=== PATIENT | female | born 1960 | race African-American/Black ===

== ENCOUNTER 2018-08-20 15:07 | Inpatient (IN) | payer OTHER ==
[2018-08-20 18:55] VITALS: BMI 34.6
--- NOTE | 2018-08-20 20:01 | HP ---
COWS - Scale Resting Pulse: 1= [place] 81-100 Sweatin= Chills/Flushing Restless Observation: 5= Unable to Sit Still Pupil Size: 1= Pupils >than Normal Bone or Joint Aches: 2= Severe Diffuse Aches Runny Nose/ Eye Tearin= Runny Nose/Eyes GI Upset > 30mins: 1= Stomach Cramp Tremor Observation: 1= Tremor [place], Not Seen Yawning Observation: 1= 1-2x During Session Anxiety or Irritability: 4=Extreme Anxiety Goose Flesh Skin: 0=Smooth Skin COWS Score: 19 CIWA Score - Admission Criteria OASAS Guidelines: Admission for Medically Managed Detox: Requires at least one of the followin. CIWA greater than 12 2. Seizures within the past 24 hours 3. Delirium tremens within the past 24 hours 4. Hallucinations within the past 24 hours 5. Acute intervention needed for co occurring medical disorder 6. Acute intervention needed for co occurring psychiatric disorder 7. Severe withdrawal that cannot be handled at a lower level of care (continued vomiting, continued diarrhea, abnormal vital signs) requiring intravenous medication and/or fluids 8. Admission [facility] Chief Complaint: heroin detox 57 yo with HTN, COPD, CAD, long h/o heroin addiction, [place] [facility] [facility] [place], left on 07/16/18 and relapsed on 07/24/18. Pt says "people, places and things" caused her to relapse. heroin: uses 8 bags/day, sniffing, no h/o OD denies other drug use, no alcohol use Allergies/Adverse Reactions: Allergies Allergy/AdvReac Type Severity Reaction Status Date / Time No Known Allergies Allergy Verified 08/20/18 18:23 - Ebola screening Have you traveled outside of the country in the last 21 days: No Have you had contact with anyone from an Ebola affected area: No Do you have a fever: No Patient History - Patient Medical History Hx Asthma: Yes Hx Chronic Obstructive Pulmonary Disease (COPD): Yes Hx Hypertension: Yes - PPD History Previous Implant?: Yes Documented Results: Positive w/proof - Smoking Cessation Smoking history: Current every day smoker Have you smoked in the past 12 months: Yes Aproximately how many cigarettes per day: 3 Hx Chewing Tobacco Use: No Initiated information on smoking cessation: Yes 'Breaking Loose' booklet given: 08/20/18 - Substances abused Heroin Substance route: Inhalation Frequency: 3-6 times per week Amount used: 4 bags Age of first use: 18 Date of last use: 08/20/18 Admission Physical Exam BHS - Vital Signs Vital Signs: Vital Signs - 24 hr 08/20/18 18:51 Temperature 97.7 F Pulse Rate 60 Respiratory 16 Rate Blood Pressure 178/88 H - Physical General Appearance: Yes: Nourished, Anxious HEENTM: Yes: Within Normal Limits, EOMI, Hearing grossly Normal, Normal Voice, TREVOR, Pharynx Normal Respiratory: Yes: Within Normal Limits, Chest Non-Tender, Lungs Clear Neck: Yes: Within Normal Limits Cardiology: Yes: Within Normal Limits, S1, S2 Abdominal: Yes: Within Normal Limits, Normal Bowel Sounds, Non Tender, Protuberent Back: Yes: Within Normal Limits, Normal Inspection Musculoskeletal: Yes: Within Normal Limits, full range of Motion Extremities: Yes: Within Normal Limits, Normal Capillary Refill Neurological: Yes: Within Normal Limits, car top bolter II-XII NML intact, Fully Oriented, Alert Integumentary: Yes: Within Normal Limits, Normal Color, Dry Lymphatic: Yes: Within Normal Limits - Diagnostic (1) Opioid use disorder Current Visit: Yes Status: Acute (2) HTN (hypertension) Current Visit: Yes Status: Acute (3) COPD (chronic obstructive pulmonary disease) Current Visit: Yes Status: Acute Breathalyzer - Breathalyzer Breathalyzer: 0 Urine Drug Screen - Test Device Lot number: [id number] Expiration date: 03/15/20 - Control Is test valid?: Yes - Results Drug screen NEGATIVE: No Urine drug screen results: THC-Marijuana, MOP-Opiates Inpatient Rehab Admission - Rehab Decision to Admit Inpatient rehab admission?: No
[2018-08-20] MEDS ORDERED: hydrOXYzine PAMOATE 25 MG CAPSULE (FP) PO PRN (20:03)
[2018-08-20] MEDS ORDERED: MAGNESIUM HYDROX 2400MG/30ML ORAL SUSPENSION 30 ML CUP PO PRN (20:03)
[2018-08-20] MEDS ORDERED: IBUPROFEN 400 MG TABLET (FP) PO PRN (20:03)
[2018-08-20] MEDS ORDERED: BISMUTH SUBSALICYLATE 524 MG/30 ML UD PO PRN (20:03)
[2018-08-20] MEDS ORDERED: ACETAMINOPHEN 325 MG TABLET (FP) PO PRN ×2 (20:03)
[2018-08-20] MEDS ORDERED: MAGNESIUM CITRATE 300 ML BOTTLE PO PRN (20:03)
[2018-08-20] MEDS ORDERED: MENTHOL/PHENOL 1 EACH UD MM PRN (20:03)
[2018-08-20] MEDS ORDERED: METHOCARBAMOL 500 MG TABLET PO PRN (20:03)
[2018-08-20] MEDS ORDERED: MAG HYDROX/AL HYDROX/SIMETH 30 ML UNIT-DOSE CUP PO PRN (20:03)
[2018-08-20] MEDS ORDERED: cloNIDine HCL 0.1 MG TABLET PO PRN (20:04)
[2018-08-20] MEDS ORDERED: METHADONE HCL 10 MG TABLET (FOR DETOX USE ONLY) PO ONE (20:30)
[2018-08-20] MEDS: THIAMINE HCL 100 MG TABLET (FP) PO SCH (21:33)
--- NOTE | 2018-08-21 08:26 | EKG ---
Test Reason : Blood Pressure : / mmHG Vent. Rate : 057 BPM Atrial Rate : 057 BPM P-R Int : 142 ms QRS Dur : 082 ms QT Int : 440 ms P-R-T Axes : 074 060 169 degrees QTc Int : 428 ms SINUS BRADYCARDIA POSSIBLE LEFT ATRIAL ENLARGEMENT LEFT VENTRICULAR HYPERTROPHY ABNORMAL ECG NO PREVIOUS ECGS AVAILABLE Confirmed by EMILEE LAIRD, BETSY ([id number]) on 08/21/2018 8:26:10 AM Referred By: Confirmed By:BETSY HEBERT MD
[2018-08-21] MEDS ORDERED: METHADONE HCL 10 MG TABLET (FOR DETOX USE ONLY) PO ONE (10:00)
[2018-08-21] MEDS: PRENATAL VITAMINS W/ FOLIC ACID TABLET (FP) PO SCH (10:20)
[2018-08-21] MEDS ORDERED: ALBUTEROL SO4 8 GM HFA INHALER IH PRN (11:05)
--- NOTE | 2018-08-21 11:20 | PN ---
BHS COWS - Scale Resting Pulse: 0= [place] 80 or Below Sweatin= Chills/Flushing Restless Observation: 1= Difficult to Sit Still Pupil Size: 1= Pupils >than Normal Bone or Joint Aches: 2= Severe Diffuse Aches Runny Nose/ Eye Tearin= Nasal Congestion GI Upset > 30mins: 1= Stomach Cramp Tremor Observation of Outstretched Hands: 2= Slight Tremor Visible Yawning Observation: 1= 1-2x During Session Anxiety or Irritability: 1=Feels Anxious/Irritable Goose Flesh Skin: 3=Piloerection COWS Score: 14 BHS Progress Note (SOAP) Subjective: body aches long history of hypertension none adherence with antihypertensant discuss risks of opiate misuse discuss risks of bp elevation Objective: 08/21/18 11:20 Vital Signs Temperature 97.6 F 08/21/18 10:21 Pulse Rate 65 08/21/18 10:21 Respiratory Rate 18 08/21/18 10:21 Blood Pressure 144/72 08/21/18 10:21 O2 Sat by Pulse Oximetry (%) 08/21/18 11:20 lab pending Assessment: 08/21/18 11:20 opiate withdrawal sx hypertension Plan: continue detox
[2018-08-21 12:36] LABS: HEMOGLOBIN 13.7 GM/dL (10.7-15.3); MCH 30.3 pg (25.7-33.7); MCHC 32.6 g/dl (32.0-36.0); MEAN PLT VOLUME 8.4 fl (7.5-11.1); PLATELET COUNT 289 K/MM3 (134-434); RBC 4.52 M/mm3 (3.60-5.2); RDW 14.2 % (11.6-15.6); WHITE BLOOD COUNT 5.4 K/mm3 (4.0-10.0)
[2018-08-21 12:48] LABS: ALBUMIN 3.5 g/dl (3.4-5.0); ALK PHOS 61 U/L (45-117); ANION GAP 2 MMOL/L (8-16); BILIRUBIN,TOTAL 0.3 mg/dL (0.2-1); BLOOD UREA NITROGEN 16 mg/dL (7-18); CALCIUM 9.6 mg/dL (8.5-10.1); CHLORIDE 103 mmol/L (98-107); CO2 33 mmol/L (21-32); CREATININE 0.8 mg/dL (0.55-1.3); GLUCOSE,RANDOM 108 mg/dL (74-106); POTASSIUM 4.5 mmol/L (3.5-5.1); SGOT/AST 18 U/L (15-37); SGPT/ALT 22 U/L (13-61); SODIUM 138 mmol/L (136-145); TOT PROT 6.3 g/dl (6.4-8.2)
[2018-08-21] MEDS: ASPIRIN 81 MG CHEWABLE TABLETS PO SCH (13:15)
[2018-08-21] MEDS: amLODIPine BESYLATE 10 MG TABLET (FP) PO SCH (13:15)
[2018-08-21] MEDS: LISINOPRIL 20 MG TABLET (FP) PO SCH (13:15)
[2018-08-21] MEDS: CARVEDILOL 12.5 MG TABLET (FP) PO SCH ×2 (14:06→22:22)
[2018-08-21 15:53] LABS: URINE APPEARANCE CLEAR; URINE BILIRUBIN 1+ (NEGATIVE); URINE COLOR DK YELLOW; URINE GLUCOSE (UA) NEGATIVE (NEGATIVE); URINE KETONE TRACE (NEGATIVE); URINE LEUK ESTERASE TRACE (NEGATIVE); URINE NITRITE NEGATIVE (NEGATIVE); URINE PROTEIN NEGATIVE (NEGATIVE)
[2018-08-21 18:18] LABS: EPI CELLS 1.7 /HPF (0-5/HPF); URINE RBC 6.7 /hpf (0-4); URINE WBC 3.4 /hpf (0-5)
[2018-08-21 18:19] LABS: URINE BACTERIA 17.9 /hpf (NEGATIVE)
[2018-08-21 18:20] LABS: URINE CASTS 16.18 /lpf (0-8); URINE CRYSTALS CALCIUM OXALATE /hpf
[2018-08-21] MEDS: MELATONIN 5 MG TABLETS PO PRN (22:22)
[2018-08-21] MEDS: THIAMINE HCL 100 MG TABLET (FP) PO SCH (22:22)
[2018-08-22] MEDS ORDERED: METHADONE HCL 10 MG TABLET (FOR DETOX USE ONLY) PO ONE (10:00)
[2018-08-22] MEDS: PRENATAL VITAMINS W/ FOLIC ACID TABLET (FP) PO SCH (10:34)
[2018-08-22] MEDS: LISINOPRIL 20 MG TABLET (FP) PO SCH (10:34)
[2018-08-22] MEDS: CARVEDILOL 12.5 MG TABLET (FP) PO SCH ×2 (10:34→22:17)
[2018-08-22] MEDS: ASPIRIN 81 MG CHEWABLE TABLETS PO SCH (10:34)
[2018-08-22] MEDS: amLODIPine BESYLATE 10 MG TABLET (FP) PO SCH (10:34)
--- NOTE | 2018-08-22 11:37 | PN ---
BHS COWS - Scale Resting Pulse: 0= [place] 80 or Below Sweatin= Chills/Flushing Restless Observation: 1= Difficult to Sit Still Pupil Size: 1= Pupils >than Normal Bone or Joint Aches: 1= Mild Discomfort Runny Nose/ Eye Tearin= Nasal Congestion GI Upset > 30mins: 1= Stomach Cramp Tremor Observation of Outstretched Hands: 1= Tremor [place], Not Seen Yawning Observation: 1= 1-2x During Session Anxiety or Irritability: 2=Irritable/Anxious Goose Flesh Skin: 0=Smooth Skin COWS Score: 10 BHS Progress Note (SOAP) Subjective: low energy resting on bed trouble sleep through the night Objective: 08/22/18 11:37 Vital Signs Temperature 97.4 F L 08/22/18 09:47 Pulse Rate 56 L 08/22/18 09:47 Respiratory Rate 18 08/22/18 09:47 Blood Pressure 139/82 08/22/18 09:47 O2 Sat by Pulse Oximetry (%) Laboratory Last Values WBC 5.4 K/mm3 (4.0-10.0) 08/21/18 09:30 RBC 4.52 M/mm3 (3.60-5.2) 08/21/18 09:30 Hgb 13.7 GM/dL (10.7-15.3) 08/21/18 09:30 Hct 42.0 % (32.4-45.2) 08/21/18 09:30 MCV 93.0 fl (80-96) 08/21/18 09:30 MCH 30.3 pg (25.7-33.7) 08/21/18 09:30 MCHC 32.6 g/dl (32.0-36.0) 08/21/18 09:30 RDW 14.2 % (11.6-15.6) 08/21/18 09:30 Plt Count 289 K/MM3 (134-434) 08/21/18 09:30 MPV 8.4 fl (7.5-11.1) 08/21/18 09:30 Sodium 138 mmol/L (136-145) 08/21/18 09:30 Potassium 4.5 mmol/L (3.5-5.1) 08/21/18 09:30 Chloride 103 mmol/L (98-107) 05/08/19 09:30 Carbon Dioxide 33 mmol/L (21-32) H 08/21/18 09:30 Anion Gap 2 MMOL/L (8-16) L 08/21/18 09:30 BUN 16 mg/dL (7-18) 08/21/18 09:30 Creatinine 0.8 mg/dL (0.55-1.3) 08/21/18 09:30 Creat Clearance w eGFR 73.42 (>60) 08/21/18 09:30 Random Glucose 108 mg/dL (74-106) H 08/21/18 09:30 Calcium 9.6 mg/dL (8.5-10.1) 08/21/18 09:30 Total Bilirubin 0.3 mg/dL (0.2-1) 08/21/18 09:30 AST 18 U/L (15-37) 08/21/18 09:30 ALT 22 U/L (13-61) 08/21/18 09:30 Alkaline Phosphatase 61 U/L (45-117) 08/21/18 09:30 Total Protein 6.3 g/dl (6.4-8.2) L 08/21/18 09:30 Albumin 3.5 g/dl (3.4-5.0) 08/21/18 09:30 Urine Color Dk yellow 08/21/18 11:45 Urine Appearance Clear 08/21/18 11:45 Urine pH 5.0 (5.0-8.0) 08/21/18 11:45 Ur Specific [place] 1.033 (1.010-1.035) 08/21/18 11:45 Urine Protein Negative (NEGATIVE) 08/21/18 11:45 Urine Glucose (UA) Negative (NEGATIVE) 08/21/18 11:45 Urine Ketones Trace (NEGATIVE) H 08/21/18 11:45 Urine Blood Negative (NEGATIVE) 08/21/18 11:45 Urine Nitrite Negative (NEGATIVE) 08/21/18 11:45 Urine Bilirubin 1+ (NEGATIVE) H 08/21/18 11:45 Urine Urobilinogen 1.0 mg/dL (0.2-1.0) 08/21/18 11:45 Ur Leukocyte Esterase Trace (NEGATIVE) 08/21/18 11:45 Urine WBC (Auto) 3.4 /hpf (0-5) 08/21/18 11:45 Urine RBC (Auto) 6.7 /hpf (0-4) 08/21/18 11:45 Urine Casts (Auto) 16.18 /lpf (0-8) 08/21/18 11:45 U Epithel Cells (Auto) 1.7 /HPF (0-5/HPF) 08/21/18 11:45 Urine Crystals (Auto) Calcium oxalate /hpf 08/21/18 11:45 Urine Bacteria (Auto) 17.9 /hpf (NEGATIVE) 08/21/18 11:45 POC Urine HCG, Qual Negative 08/20/18 19:18 RPR Titer Nonreactive (NONREACTIVE) 08/21/18 09:30 lab noted Assessment: 08/22/18 11:37 withdrawal sx Plan: continue detox
[2018-08-22] MEDS ORDERED: diphenhydrAMINE HCL 25 MG CAPSULE (FP) PO ONE (20:12)
[2018-08-22] MEDS ORDERED: COLLOIDAL OATMEAL 1 BAR EACH TP PRN (20:12)
--- NOTE | 2018-08-22 20:14 | PN ---
[facility] Progress Note Note: Vital Signs Temperature 97.6 F 08/22/18 18:00 Pulse Rate 53 L 08/22/18 18:00 Respiratory Rate 08/22/18 18:00 Blood Pressure 126/66 08/22/18 18:00 O2 Sat by Pulse Oximetry (%) c/o of itchy skin after using soap. one time dose Benadryl and aveeno soap continue to monitor
[2018-08-22] MEDS: THIAMINE HCL 100 MG TABLET (FP) PO SCH (22:17)
[2018-08-23] MEDS ORDERED: METHADONE HCL 10 MG TABLET (FOR DETOX USE ONLY) PO ONE (10:00)
[2018-08-23] MEDS: amLODIPine BESYLATE 10 MG TABLET (FP) PO SCH (10:28)
[2018-08-23] MEDS: ASPIRIN 81 MG CHEWABLE TABLETS PO SCH (10:28)
[2018-08-23] MEDS: LISINOPRIL 20 MG TABLET (FP) PO SCH (10:28)
[2018-08-23] MEDS: CARVEDILOL 12.5 MG TABLET (FP) PO SCH ×2 (10:28→22:01)
[2018-08-23] MEDS: PRENATAL VITAMINS W/ FOLIC ACID TABLET (FP) PO SCH (10:28)
--- NOTE | 2018-08-23 15:51 | PN ---
BHS COWS - Scale Resting Pulse: 0= [place] 80 or Below Sweatin= No chills or Flushing Restless Observation: 1= Difficult to Sit Still Pupil Size: 0= Normal to Room Light Bone or Joint Aches: 0= None Runny Nose/ Eye Tearin= None GI Upset > 30mins: 0= None Tremor Observation of Outstretched Hands: 0= None Yawning Observation: 1= 1-2x During Session Anxiety or Irritability: 0= None Goose Flesh Skin: 0=Smooth Skin COWS Score: 2 BHS Progress Note (SOAP) Subjective: Patient denies current Withdrawal / Detox symptoms and reports that he feels well overall. Objective: PATIENT A & O X 3, OBSERVED AMBULATING ON UNIT UNASSISTED. IN NO ACUTE DISTRESS. 08/23/18 15:47 Vital Signs Temperature 97.0 F L 08/23/18 14:06 Pulse Rate 55 L 08/23/18 14:06 Respiratory Rate 20 08/23/18 14:06 Blood Pressure 128/79 08/23/18 14:06 O2 Sat by Pulse Oximetry (%) Laboratory Tests 08/20/18 08/21/18 08/21/18 19:18 09:30 09:30 WBC 5.4 RBC 4.52 Hgb 13.7 Hct 42.0 MCV 93.0 MCH 30.3 MCHC 32.6 RDW 14.2 Plt Count 289 MPV 8.4 Sodium 138 Potassium 4.5 Chloride 103 Carbon Dioxide 33 H Anion Gap 2 L BUN 16 Creatinine 0.8 Creat Clearance w eGFR 73.42 Random Glucose 108 H Calcium 9.6 Total Bilirubin 0.3 AST 18 ALT 22 Alkaline Phosphatase 61 Total Protein 6.3 L Albumin 3.5 Urine Color Urine Appearance Urine pH Ur Specific [place] Urine Protein Urine Glucose (UA) Urine Ketones Urine Blood Urine Nitrite Urine Bilirubin Urine Urobilinogen Ur Leukocyte Esterase Urine WBC (Auto) Urine RBC (Auto) Urine Casts (Auto) U Epithel Cells (Auto) Urine Crystals (Auto) Urine Bacteria (Auto) POC Urine HCG, Qual Negative RPR Titer 08/21/18 08/21/18 09:30 11:45 WBC RBC Hgb Hct MCV MCH MCHC RDW Plt Count MPV Sodium Potassium Chloride Carbon Dioxide Anion Gap BUN Creatinine Creat Clearance w eGFR Random Glucose Calcium Total Bilirubin AST ALT Alkaline Phosphatase Total Protein Albumin Urine Color Dk yellow Urine Appearance Clear Urine pH 5.0 Ur Specific [place] 1.033 Urine Protein Negative Urine Glucose (UA) Negative Urine Ketones Trace H Urine Blood Negative Urine Nitrite Negative Urine Bilirubin 1+ H Urine Urobilinogen 1.0 Ur Leukocyte Esterase Trace Urine WBC (Auto) 3.4 Urine RBC (Auto) 6.7 Urine Casts (Auto) 16.18 U Epithel Cells (Auto) 1.7 Urine Crystals (Auto) Calcium oxalate Urine Bacteria (Auto) 17.9 POC Urine HCG, Qual RPR Titer Nonreactive LABS NOTED. Assessment: 08/23/18 15:48 WITHDRAWAL SYMPTOMS. Plan: CONTINUE DETOX. PATIENT SCHEDULED FOR D/C TOMORROW.
[2018-08-23] MEDS: THIAMINE HCL 100 MG TABLET (FP) PO SCH (22:01)
[2018-08-23] MEDS: MELATONIN 5 MG TABLETS PO PRN (22:02)
[2018-08-24] MEDS ORDERED: METHADONE HCL 5 MG TABLET (FOR DETOX USE ONLY) PO ONE (06:00)
[2018-08-24 06:15] VITALS: BP 122/67; PULSE 54; TEMP 96.6
--- NOTE | 2018-08-24 18:54 | DS ---
[facility] Detox Discharge Summary Admission Date: 08/20/18 Discharge Date: 08/24/18 - History Present History: Opioid Dependence Additional Comments: PATIENT GOING TO [facility] ([place], [place]) FOR AFTERCARE. PATIENT WAS DISCHARGED FROM DETOX UNIT NI STABLE MEDICAL CONDITION. Pertinent Past History: CAD, HYPERTENSION, C.O.P.D. - Physical Exam Results Vital Signs: Vital Signs Temperature 96.6 F L 08/24/18 06:15 Pulse Rate 54 L 08/24/18 06:15 Respiratory Rate 18 08/24/18 06:15 Blood Pressure 122/67 08/24/18 06:15 O2 Sat by Pulse Oximetry (%) Pertinent Admission Physical Exam Findings: WITHDRAWAL SYMPTOMS. Laboratory Tests 08/20/18 08/21/18 08/21/18 19:18 09:30 09:30 WBC 5.4 RBC 4.52 Hgb 13.7 Hct 42.0 MCV 93.0 MCH 30.3 MCHC 32.6 RDW 14.2 Plt Count 289 MPV 8.4 Sodium 138 Potassium 4.5 Chloride 103 Carbon Dioxide 33 H Anion Gap 2 L BUN 16 Creatinine 0.8 Creat Clearance w eGFR 73.42 Random Glucose 108 H Calcium 9.6 Total Bilirubin 0.3 AST 18 ALT 22 Alkaline Phosphatase 61 Total Protein 6.3 L Albumin 3.5 Urine Color Urine Appearance Urine pH Ur Specific [place] Urine Protein Urine Glucose (UA) Urine Ketones Urine Blood Urine Nitrite Urine Bilirubin Urine Urobilinogen Ur Leukocyte Esterase Urine WBC (Auto) Urine RBC (Auto) Urine Casts (Auto) U Epithel Cells (Auto) Urine Crystals (Auto) Urine Bacteria (Auto) POC Urine HCG, Qual Negative RPR Titer 08/21/18 08/21/18 09:30 11:45 WBC RBC Hgb Hct MCV MCH MCHC RDW Plt Count MPV Sodium Potassium Chloride Carbon Dioxide Anion Gap BUN Creatinine Creat Clearance w eGFR Random Glucose Calcium Total Bilirubin AST ALT Alkaline Phosphatase Total Protein Albumin Urine Color Dk yellow Urine Appearance Clear Urine pH 5.0 Ur Specific [place] 1.033 Urine Protein Negative Urine Glucose (UA) Negative Urine Ketones Trace H Urine Blood Negative Urine Nitrite Negative Urine Bilirubin 1+ H Urine Urobilinogen 1.0 Ur Leukocyte Esterase Trace Urine WBC (Auto) 3.4 Urine RBC (Auto) 6.7 Urine Casts (Auto) 16.18 U Epithel Cells (Auto) 1.7 Urine Crystals (Auto) Calcium oxalate Urine Bacteria (Auto) 17.9 POC Urine HCG, Qual RPR Titer Nonreactive LABS NOTED. - Treatment Hospital Course: Detox Protocol Followed, Detoxed Safely, Responded well, Discharged Condition Good, Rehab Referral Accepted Patient has Accepted a Rehab Referral to: [facility] ([place], [place]). - Medication Discharge Medications: Ambulatory Orders Advair 250-50 Diskus 50 - 250 inh IH BID 08/20/18 Aspirin 81 mg PO DAILY 08/20/18 Bupropion HCl [Bupropion HCl Sr] 100 mg PO BID 08/20/18 Gabapentin [Neurontin -] 300 mg PO BID 08/20/18 Albuterol Sulfate Inhaler - [Ventolin HFA Inhaler -] 1 - 2 inh IH Q4H #1 inhaler 08/23/18 Amlodipine Besylate 10 mg PO DAILY #30 tablet 08/23/18 Aspirin 81 mg PO DAILY 30 Days #30 tab.chew 08/23/18 Carvedilol 12.5 mg PO BID 30 Days #60 tablet 08/23/18 Fluticasone/Salmeterol [Advair 250-50 Diskus] 1 each IH DAILY #1 blst.w.dev 02/01 Lisinopril [Prinivil -] 40 mg PO DAILY 30 Days #30 tablet 08/23/18 - Diagnosis (1) COPD (chronic obstructive pulmonary disease) Status: Acute Qualifiers: COPD type: unspecified COPD Qualified Code(s): J44.9 - Chronic obstructive pulmonary disease, unspecified (2) HTN (hypertension) Status: Acute Qualifiers: Hypertension type: unspecified Qualified Code(s): I10 - Essential (primary ) hypertension (3) Opioid use disorder Status: Acute - AMA Did Patient Leave Against Medical Advice: No
== END 2018-08-24 10:29 | disposition home or self-care (01) | DRG 773 ==
LOC: YASAS 15:07 → Y3N 20:21
PROVIDERS: ADMIT Surgery; ATTEND Surgery
PROC: HZ2ZZZZ Detoxification Services for Substance Abuse Treatment (ICD-10-PCS; principal; 2018-08-20)
DX: F11.23 Opioid dependence with withdrawal (principal); F17.210 Nicotine dependence, cigarettes, uncomplicated; I10 Essential (primary) hypertension; J44.9 Chronic obstructive pulmonary disease, unspecified; L29.9 Pruritus, unspecified; I25.10 Atherosclerotic heart disease of native coronary artery without angina pectoris
CPT/HCPCS: 36415; 80053; 81003; 81025; 85027; 86593; 93005; 93010; J0735

== ENCOUNTER 2019-06-10 11:44 | Inpatient (IN) | payer OTHER ==
--- NOTE | 2019-06-10 12:34 | BHS.RME ---
Substance Use & Tx History - Substance Use History Alcohol Substance amount: 1 pint vodka Frequency of use: Daily Substance route: Oral Date of Last Use: 06/09/19 (was seen [facility]) Opiates (Heroin) Substance amount: 2-3 bags Frequency of use: Daily Substance route: Inhalation (ex: sniffing or snorting) Date of Last Use: 06/09/19 Cocaine (Crack) Substance amount: 3 bags Frequency of use: Daily Substance route: Smoking Date of Last Use: 06/08/19 Nicotine Substance amount: 1/2 pack Frequency of use: Daily Substance route: Smoking Date of Last Use: 06/10/19 Physical/Psych/Mental Status - Behavior General Behavior: Decreased activity Eye Contact: Normal - Cooperativeness Cooperativeness: Cooperative - Thinking Thought Processes: Tight, Logical, Goal Directed - Physical Health Problems Is patient presently having any pain?: No Does patient presently have any injuries (include location): No Does patient currently have a fever: No Is patient : No COWS - Scale Resting Pulse: 0= [place] 80 or Below Sweatin= Chills/Flushing Restless Observation: 1= Difficult to Sit Still Pupil Size: 1= Pupils >than Normal Bone or Joint Aches: 1= Mild Discomfort Runny Nose/ Eye Tearin= Nasal Congestion GI Upset > 30mins: 1= Stomach Cramp Tremor Observation: 0= None Yawning Observation: 1= 1-2x During Session Anxiety or Irritability: 1=Feels Anxious/Irritable Goose Flesh Skin: 0=Smooth Skin (used yesterday and amounts are not large on daily basis) COWS Score: 8 CIWA Nausea/Vomitin Muscle Tremors: 2 Anxiety: 3 Agitation: 1-Slight > Activity Paroxysmal Sweats: 1-Minimal Palms Moist Orientation: 1-Uncertain about Date Tacttile Disturbances: 0-None Auditory Disturbances: 0-None Visual Disturbances: 0-None Headache: 0-None Present (drank earlier and may be out of her system by now. Seen in [facility] and discharged from there early this morning around 6 AM.) CIWA-Ar Total Score: 10
--- NOTE | 2019-06-10 13:46 | HP ---
COWS - Scale Resting Pulse: 0= WI 80 or Below Sweatin= Chills/Flushing Restless Observation: 1= Difficult to Sit Still Pupil Size: 1= Pupils >than Normal Bone or Joint Aches: 1= Mild Discomfort Runny Nose/ Eye Tearin= Nasal Congestion GI Upset > 30mins: 1= Stomach Cramp Tremor Observation: 0= None Yawning Observation: 1= 1-2x During Session Anxiety or Irritability: 1=Feels Anxious/Irritable Goose Flesh Skin: 0=Smooth Skin (used yesterday and amounts are not large on daily basis) COWS Score: 8 CIWA Score Nausea/Vomitin (last drank 6 AM so withdrawals are still mild.) Muscle Tremors: 2 Anxiety: 3 Agitation: 1-Slight > Activity Paroxysmal Sweats: 1-Minimal Palms Moist Orientation: 1-Uncertain about Date Tacttile Disturbances: 0-None Auditory Disturbances: 0-None Visual Disturbances: 0-None Headache: 0-None Present (drank earlier and may be out of her system by now. Seen in [facility] and discharged from there early this morning around 6 AM.) CIWA-Ar Total Score: 10 - Admission Criteria OASAS Guidelines: Admission for Medically Managed Detox: Requires at least one of the followin. CIWA greater than 12 2. Seizures within the past 24 hours 3. Delirium tremens within the past 24 hours 4. Hallucinations within the past 24 hours 5. Acute intervention needed for co occurring medical disorder 6. Acute intervention needed for co occurring psychiatric disorder 7. Severe withdrawal that cannot be handled at a lower level of care (continued vomiting, continued diarrhea, abnormal vital signs) requiring intravenous medication and/or fluids 8. Admitting History and Physical - Admission Chief Complaint: "I want to stop using drugs." History of Present Illness: 58 year old female with history of opioid dependence with some withdrawals and alcohol dependence with some withdrawals who is homeless and has poor support systems. She has a history of COPD, CHF, DM, HLD, HTN but noncompliant with any medications. She was last seen in [facility] for SOB and given albuterol atrovent and prednisone this morning 06/10/19. She was also impaired and referred for detox here as there were no detox beds there. PSurg: None Psych: None Alcohol: 1 pint of vodka daily k,last used on 06/10/19 never overdose started at the age of 20 Ciggs: 1/2 ppd started smoking at age 20. Heroin: 2-3 bags of heroin daily last used 06/09/19 never overdosed started using at the age of 26 crack/cocaine: 3 bags daily last used 06/08/19 She is seeking detox and [facility] and many co-morbid disorders. She requires inpatient detox. History Source: Patient Limitations to Obtaining History: No Limitations - Past Medical History Cardiovascular: Yes: CHF, HTN, Hyperlipdemia Endocrine: Yes: Diabetes Mellitus - Past Surgical History Past Surgical History: Yes: None - Advance Directives Advance Directives: No: Living Will, Health Care Proxy, DNR - Smoking History Smoking history: Current every day smoker Have you smoked in the past 12 months: Yes Aproximately how many cigarettes per day: 3 - Alcohol/Substance Use Hx Alcohol Use: Yes ( 1 pint vodka) Number of Drinks Daily: 2 History of Substance Use: reports: Cocaine, Heroin Date of Last Use: 06/09/19 - Social History Usual Living Arrangement: Yes: Alone Do you think of yourself as: Straight/Heterosexual ADL: Independent Occupation: unemployed homeless History of Recent Travel: No Admission ROS [facility] Allergies/Adverse Reactions: Allergies Allergy/AdvReac Type Severity Reaction Status Date / Time No Known Allergies Allergy Verified 08/20/18 18:23 Exam Limitations: No Limitations - Ebola screening Have you traveled outside of the country in the last 21 days: No Have you had contact with anyone from an Ebola affected area: No Have you been sick,other than usual withdrawal symptoms: No Do you have a fever: No - Review of Systems Constitutional: No Symptoms Reported EENT: reports: No Symptoms Reported Respiratory: reports: No Symptoms reported Cardiac: reports: No Symptoms Reported GI: reports: No Symptoms Reported : reports: No Symptoms Reported Musculoskeletal: reports: No Symptoms Reported Integumentary: reports: No Symptoms Reported Neuro: reports: No Symptoms reported Endocrine: reports: No Symptoms Reported, Unexplained Weight Loss Psychiatric: reports: Judgement Intact, Orientated x3, Agitated, Anxious Other Systems: Reviewed and Negative Patient History - Patient Medical History Hx Asthma: Yes Hx Chronic Obstructive Pulmonary Disease (COPD): No Hx Cardiac Disorders: No Hx Hypertension: Yes Hx Seizures: No Hx Diabetes: No Hx Gastrointestinal Disorders: No Hx Genitourinary Disorders: No Hx Sexually Transmitted Disorders: No Hx Renal Disease (ESRD): No Hx Depression: Yes Hx Suicide Attempt: No Hx Schizophrenia: No - Patient Surgical History Past Surgical History: No Hx Neurologic Surgery: No Hx Cataract Extraction: No Hx Cardiac Surgery: No Hx Lung Surgery: No Hx Breast Surgery: No Hx Breast Biopsy: No Hx Abdominal Surgery: No Hx Appendectomy: No Hx Cholecystectomy: No Hx Genitourinary Surgery: No Hx Section: No Hx Orthopedic Surgery: No Anesthesia Reaction: No - PPD History Previous Implant?: Yes Documented Results: Negative w/o proof Implanted On Prior [facility] Admission?: No Results: negative PPD to be Administered?: Yes - Smoking Cessation Smoking history: Current every day smoker Have you smoked in the past 12 months: Yes Aproximately how many cigarettes per day: 3 Hx Chewing Tobacco Use: No Initiated information on smoking cessation: Yes 'Breaking Loose' booklet given: 06/10/19 - Substances abused Alcohol Substance route: Oral Frequency: Daily Amount used: 1 pint Age of first use: 20 Heroin Substance route: Inhalation Amount used: 2-3 Age of first use: 26 Date of last use: 06/09/19 Crack Substance route: Smoking Amount used: 3 bags Age of first use: 20 Date of last use: 06/08/19 Admission Physical Exam S - Physical General Appearance: Yes: Moderate Distress, Irritable, Sweating, Anxious HEENTM: Yes: EOMI, Hearing grossly Normal, Normal ENT Inspection, Normocephalic , Normal Voice, TREVOR, Pharynx Normal, Tm's normal Respiratory: Yes: Chest Non-Tender, Lungs Clear, Normal Breath Sounds, No Respiratory Distress, No Accessory Muscle Use Neck: Yes: No masses,lesions,Nodules, Supple, Trachea in good position Breast: Yes: Breast Exam Deferred Cardiology: Yes: Regular Rhythm, Regular Rate, S1, S2 Abdominal: Yes: Normal Bowel Sounds, Non Tender, Soft, Protuberent Genitourinary: Yes: Within Normal Limits Back: Yes: Normal Inspection Musculoskeletal: Yes: full range of Motion, Gait Steady, Pelvis Stable Extremities: Yes: Normal Capillary Refill, Normal Inspection, Normal Range of Motion, Non-Tender Neurological: Yes: cattle sticker II-XII NML intact, Fully Oriented, Alert, Motor Strength 5/5, Normal Mood/Affect, Normal Response Integumentary: Yes: Normal Color, Warm Lymphatic: Yes: Within Normal Limits - Diagnostic (1) Alcohol dependence with withdrawal Current Visit: Yes Status: Acute (2) COPD (chronic obstructive pulmonary disease) Current Visit: Yes Status: Acute Qualifiers: COPD type: unspecified COPD Qualified Code(s): J44.9 - Chronic obstructive pulmonary disease, unspecified (3) HTN (hypertension) Current Visit: Yes Status: Acute Qualifiers: Hypertension type: unspecified Qualified Code(s): I10 - Essential (primary ) hypertension (4) Opioid use disorder Current Visit: Yes Status: Acute (5) CHF (congestive heart failure) Current Visit: Yes Status: Acute (6) Hyperlipidemia Current Visit: Yes Status: Acute (7) Diabetes Current Visit: Yes Status: Acute Cleared for Admission S - Detox or Rehab [facility] Level of Care: Medically Managed Detox Regimen/Protocol: Ativan, Methadone Claeared for Rehab Admission: No Breathalyzer - Breathalyzer Breathalyzer: 0 Urine Drug Screen - Test Device Lot number: [id number] Expiration date: 03/15/21 - Control Is test valid?: Yes - Results Drug screen NEGATIVE: No Urine drug screen results: ELIUD-Cocaine, FEN-Fentanyl, MOP-Opiates, MTD-Methadone Inpatient Rehab Admission - Rehab Decision to Admit Inpatient rehab admission?: No
[2019-06-10] MEDS ORDERED: IBUPROFEN 400 MG TABLET (FP) PO PRN (13:53)
[2019-06-10] MEDS ORDERED: hydrOXYzine PAMOATE 25 MG CAPSULE (FP) PO PRN (13:53)
[2019-06-10] MEDS ORDERED: LORazepam 1 MG TABLET PO PRN (13:53)
[2019-06-10] MEDS ORDERED: BISMUTH SUBSALICYLATE 262 MG/15 ML BTL PO PRN (13:53)
[2019-06-10] MEDS ORDERED: MENTHOL/PHENOL 1 EACH UD MM PRN (13:53)
[2019-06-10] MEDS ORDERED: MAGNESIUM CITRATE 300 ML BOTTLE PO PRN (13:53)
[2019-06-10] MEDS ORDERED: MAG HYDROX/AL HYDROX/SIMETH 30 ML UNIT-DOSE CUP PO PRN (13:53)
[2019-06-10] MEDS ORDERED: ACETAMINOPHEN 325 MG TABLET (FP) PO PRN ×2 (13:53)
[2019-06-10] MEDS ORDERED: MELATONIN 5 MG TABLETS PO PRN (13:53)
[2019-06-10] MEDS ORDERED: MAGNESIUM HYDROX 2400MG/30ML ORAL SUSPENSION 30 ML CUP PO PRN (13:53)
[2019-06-10] MEDS ORDERED: METHOCARBAMOL 500 MG TABLET PO PRN (13:53)
[2019-06-10] MEDS ORDERED: cloNIDine HCL 0.1 MG TABLET PO PRN (13:53)
[2019-06-10] MEDS ORDERED: METHADONE HCL 10 MG TABLET (FOR DETOX USE ONLY) PO ONE (14:30)
[2019-06-10 14:56] VITALS: BMI 29.2
[2019-06-10] MEDS: NICOTINE 7 MG/24 HOURS TOPICAL PATCH TD SCH (15:02)
--- NOTE | 2019-06-10 15:33 | EKG ---
Test Reason : Blood Pressure : / mmHG Vent. Rate : 050 BPM Atrial Rate : 050 BPM P-R Int : 132 ms QRS Dur : 082 ms QT Int : 482 ms P-R-T Axes : -18 068 147 degrees QTc Int : 439 ms SINUS BRADYCARDIA MODERATE VOLTAGE CRITERIA FOR LVH, MAY BE NORMAL VARIANT MARKED T-WAVE ABNORMALITY, CONSIDER INFEROLATERAL ISCHEMIA ABNORMAL ECG Confirmed by Papo Bowens MD ([id number]) on 06/10/2019 3:33:03 PM Referred By: Confirmed By:Papo Bowens MD
[2019-06-10 17:27] LABS: HEMATOCRIT 44.7 % (32.4-45.2); HEMOGLOBIN 14.1 GM/dL (10.7-15.3); MCH 29.2 pg (25.7-33.7); MCHC 31.6 g/dl (32.0-36.0); MEAN CELL VOLUME 92.3 fl (80-96); MEAN PLT VOLUME 8.6 fl (7.5-11.1); PLATELET COUNT 337 K/MM3 (134-434); RBC 4.85 M/mm3 (3.60-5.2); RDW 18.9 % (11.6-15.6)
[2019-06-10 17:48] LABS: BILIRUBIN,TOTAL 1.5 mg/dL (0.2-1); BLOOD UREA NITROGEN 22.7 mg/dL (7-18); CREATININE 0.9 mg/dL (0.55-1.3); POTASSIUM 4.6 mmol/L (3.5-5.1); TOT PROT 5.9 g/dl (6.4-8.2)
[2019-06-10] MEDS: LORazepam 2 MG TABLET PO SCH ×2 (19:32→22:26)
[2019-06-10] MEDS ORDERED: THIAMINE HCL 100 MG TABLET (FP) PO SCH (22:00)
--- NOTE | 2019-06-11 04:14 | PN ---
[facility] Progress Note Note: Patient reports that she hit her right eye on the bedside table. She denies pain or discomfort at this time. No redness, swelling, bleeding, bruises, skin tear or any injury noted or reported at this time. Vital signs stable. Vital Signs Temperature 98.1 F 06/10/19 17:19 Pulse Rate 56 L 06/10/19 17:19 Respiratory Rate 18 06/11/19 00:36 Blood Pressure 133/60 06/10/19 17:19 O2 Sat by Pulse Oximetry (%) Laboratory Last Values WBC 6.0 K/mm3 (4.0-10.0) 06/10/19 14:05 RBC 4.85 M/mm3 (3.60-5.2) 06/10/19 14:05 Hgb 14.1 GM/dL (10.7-15.3) 06/10/19 14:05 Hct 44.7 % (32.4-45.2) 06/10/19 14:05 MCV 92.3 fl (80-96) 06/10/19 14:05 MCH 29.2 pg (25.7-33.7) 06/10/19 14:05 MCHC 31.6 g/dl (32.0-36.0) L 06/10/19 14:05 RDW 18.9 % (11.6-15.6) H 06/10/19 14:05 Plt Count 337 K/MM3 (134-434) 06/10/19 14:05 MPV 8.6 fl (7.5-11.1) 06/10/19 14:05 Sodium 143 mmol/L (136-145) 06/10/19 14:05 Potassium 4.6 mmol/L (3.5-5.1) 06/10/19 14:05 Chloride 108 mmol/L (98-107) H 06/10/19 14:05 Carbon Dioxide 33 mmol/L (21-32) H 06/10/19 14:05 Anion Gap 3 MMOL/L (8-16) L 06/10/19 14:05 BUN 22.7 mg/dL (7-18) H 06/10/19 14:05 Creatinine 0.9 mg/dL (0.55-1.3) 06/10/19 14:05 Est GFR (CKD-EPI)AfAm 80.55 06/10/19 14:05 Est GFR (CKD-EPI)NonAf 69.50 06/10/19 14:05 POC Glucometer 139 UNITS (80-120) 06/10/19 16:33 Random Glucose 104 mg/dL (74-106) 06/10/19 14:05 Calcium 9.0 mg/dL (8.5-10.1) 06/10/19 14:05 Total Bilirubin 1.5 mg/dL (0.2-1) H 06/10/19 14:05 AST 107 U/L (15-37) H 06/10/19 14:05 ALT 82 U/L (13-61) H 06/10/19 14:05 Alkaline Phosphatase 124 U/L (45-117) H 06/10/19 14:05 Total Protein 5.9 g/dl (6.4-8.2) L 06/10/19 14:05 Albumin 3.0 g/dl (3.4-5.0) L 06/10/19 14:05 Action: Tylenol 650mg tablet oral Q6H prn Monitor patient
[2019-06-11] MEDS: LORazepam 2 MG TABLET PO SCH ×2 (06:28→11:10)
[2019-06-11] MEDS ORDERED: METHADONE HCL 5 MG TABLET (FOR DETOX USE ONLY) ONE (08:57)
[2019-06-11] MEDS ORDERED: METHADONE HCL 10 MG TABLET (FOR DETOX USE ONLY) ONE (08:58)
[2019-06-11] MEDS ORDERED: METHADONE (DETOX) 20 MG, METHADONE (DETOX) 5 MG PO ONE (10:00)
[2019-06-11] MEDS ORDERED: PRENATAL VITAMINS W/ FOLIC ACID TABLET (FP) PO SCH (10:00)
[2019-06-11] MEDS ORDERED: NALOXONE (NARCAN) HCL 4 MG/0.1 ML SPRAY NS ONE (10:54)
[2019-06-11] MEDS: NICOTINE 7 MG/24 HOURS TOPICAL PATCH TD SCH (11:10)
[2019-06-11] MEDS ORDERED: METHADONE HCL 10 MG TABLET (FOR DETOX USE ONLY) PO ONE (11:35)
[2019-06-11] MEDS ORDERED: TRIMETHOBENZAMIDE HCL 200MG/2ML INJ IM ONE (11:57)
--- NOTE | 2019-06-11 13:14 | PN ---
Progress Note (short form) - Note Progress Note: 58 y/o f pt admitted to [facility] for heroin, alcohol detox on 06/10/19 . The pt had been seen earlier in the day for SOB/COPD at [facility]. Pt was found to be very sedated today. Her dose of methadone for 06/11/19 was held . She was then given nasal narcan and become alert and responsive. Shorly after she began to go into withdrawal. The pt was then give Tigan im followed by methadone 10mg . Pt withdrawal sx's improved ,but she is now SOB . Pulse ox 89% on RA, Resp., 22/m Pt given Duoneb treatment with some improvement SOB/COPD needs further evaluation and tx at ED pt signed out to Dr. Luz in ED [facility] activated
[2019-06-11] MEDS ORDERED: ALBUTEROL SO4 2.5/IPRATROPIUM 0.5 INH SOL 3 ML VIAL.NEB. NEB ONE (13:15)
[2019-06-11 13:27] VITALS: BP 150/99; PULSE 102; TEMP 98.1
[2019-06-12] MEDS ORDERED: LORazepam 1 MG TABLET PO SCH (05:00)
[2019-06-12] MEDS ORDERED: METHADONE HCL 10 MG TABLET (FOR DETOX USE ONLY) PO ONE (10:00)
[2019-06-13] MEDS ORDERED: LORazepam 0.5 MG TABLET PO PRN
[2019-06-13] MEDS ORDERED: LORazepam 0.5 MG TABLET PO SCH (05:00)
[2019-06-13] MEDS ORDERED: METHADONE (DETOX) 10 MG, METHADONE (DETOX) 5 MG PO ONE (10:00)
[2019-06-14] MEDS ORDERED: LORazepam 0.5 MG TABLET PO ONE (05:00)
[2019-06-14] MEDS ORDERED: METHADONE HCL 10 MG TABLET (FOR DETOX USE ONLY) PO ONE (10:00)
[2019-06-15] MEDS ORDERED: METHADONE HCL 5 MG TABLET (FOR DETOX USE ONLY) PO ONE (06:00)
== END 2019-06-11 13:56 | disposition short-term general hospital (02) | DRG 773 ==
LOC: YASAS 11:44 → Y6N 14:24
PROVIDERS: ADMIT Allergy & Immunology; ATTEND Allergy & Immunology
PROC: HZ2ZZZZ Detoxification Services for Substance Abuse Treatment (ICD-10-PCS; principal; 2019-06-10)
DX: F10.230 Alcohol dependence with withdrawal, uncomplicated (principal); F11.23 Opioid dependence with withdrawal; F14.20 Cocaine dependence, uncomplicated; F17.210 Nicotine dependence, cigarettes, uncomplicated; I11.0 Hypertensive heart disease with heart failure; I50.9 Heart failure, unspecified; E78.5 Hyperlipidemia, unspecified; E11.9 Type 2 diabetes mellitus without complications; J44.9 Chronic obstructive pulmonary disease, unspecified; R06.02 Shortness of breath; Z91.14 Patient's other noncompliance with medication regimen
CPT/HCPCS: 36415; 80053; 81025; 82962; 85027; 86593; 93005; 93010; 94640

== ENCOUNTER 2019-06-11 14:07 | Inpatient (IN) | payer OTHER ==
[2019-06-11] MEDS ORDERED: ACETAMINOPHEN INJECTION 100 ML IVPB ONE (14:58)
--- NOTE | 2019-06-11 15:09 | PDOC ---
History of Present Illness - General Chief Complaint: Altered Mental Status Stated Complaint: OVERDOSE Time Seen by Provider: 06/11/19 14:19 History Source: Patient Exam Limitations: Clinical Condition - History of Present Illness Initial Comments: History is limited because patient is lethargic and stuporous. She responds to sternal rub and most noxious stimuli but does not respond to speech. Carla Cox is a 58 yo F w a pmh of COPD, CHF,NIDDM, HLD, HTN but noncompliant with any medications, polysubstance abuse including including alcohol abuse and withdrawal with delirium tremens, seizures, and hallucinations , Opiod overdose and withdrawal taking methadone and also took heroin this morning who presents from [facility] confused and altered. The patient received naloxone this morning at [facility]. When she arrived in the ER she was satting at 72% with a good wave form. Her SpO2 saturation went up to 92% on 5LNC. She also felt warm to touch and had a rectal temperature of 101. When she was placed on the monitor her blood pressure was noted to be elevated at 198/100. She was also breathing very fast at a rate of 32. Her fingerstick was noted to be 126 upon ED entrance. Unknown when patient's last alcoholic drink was. Social Hx: Patient is homeless and has poor support systems. Past History - Past Medical History Allergies/Adverse Reactions: Allergies Allergy/AdvReac Type Severity Reaction Status Date / Time No Known Allergies Allergy Verified 08/20/18 18:23 Home Medications: Ambulatory Orders Fluticasone/Salmeterol [Advair 250-50 Diskus] 1 each IH DAILY #1 blst.w.dev 02/01 Atorvastatin Calcium 40 mg PO HS 06/10/19 Carvedilol [Coreg -] 6.25 mg PO BID 06/10/19 Fluticasone/Salmeterol [Advair Hfa 230-21 Mcg Inhaler] 1 inh PO BID 06/10/19 Lisinopril 10 mg PO DAILY 06/10/19 Metformin HCl [Glucophage] 500 mg PO DAILY 06/10/19 Metoprolol Succinate [Toprol Xl -] 50 mg PO DAILY 06/10/19 Montelukast Na [Singulair -] 10 mg PO HS 06/10/19 Tiotropium Dierks [Spiriva] 18 mcg IH DAILY 06/10/19 predniSONE [Deltasone -] 40 mg PO DAILY 06/10/19 Amlodipine Besylate [Norvasc -] 10 mg PO DAILY 06/12/19 Ipratropium/Albuterol Sulfate [Iprat-Albut 0.5-3(2.5) mg/3 ml] 3 ml Q4H Asthma: Yes Cardiac Disorders: Yes (CHF) COPD: Yes Diabetes: Yes (NIDDM) GI Disorders: No Disorders: No HTN: Yes (on med) Kidney Stones: No Seizures: No - Surgical History Abdominal Surgery: No Appendectomy: No Cardiac Surgery: No Cholecystectomy: No Lung Surgery: No Neurologic Surgery: No Orthopedic Surgery: No - Reproductive History PID: No - Psycho Social/Smoking Cessation Hx Smoking History: Current every day smoker Have you smoked in the past 12 months: Yes Number of Cigarettes Smoked Daily: 3 Information on smoking cessation initiated: No 'Breaking Loose' booklet given: 06/10/19 Hx Alcohol Use: Yes Drug/Substance Use Hx: Yes Hx Substance Use Treatment: Yes Review of Systems - Review of Systems Able to Perform ROS?: No (altered mental status) *Physical Exam - Vital Signs Last Vital Signs Temp Pulse Resp BP Pulse Ox 98.6 F 88 28 H 196/72 H 92 L 06/11/19 14:31 06/11/19 14:31 06/11/19 14:31 06/11/19 14:31 06/11/19 14:31 - Physical Exam General Appearance: Yes: Disheveled, Moderate Distress, Obese, Other (Not well kept) HEENT: positive: EOMI, Normal Voice, Other (Pinpoint Pupils) Neck: positive: Trachea midline, Supple Respiratory/Chest: positive: Respiratory Distress, Accessory Muscle Use, Labored Respiration, Rapid RR, Decreased Breath Sounds, Crackles, Rales, Rhonchi. negative: Lungs Clear, Normal Breath Sounds, Stridor, Wheezing Cardiovascular: positive: Regular Rhythm, Regular Rate. negative: Edema, JVD, Murmur, Tachycardia Vascular Pulses: Dorsalis-Pedis (R): 2+, Doralis-Pedis (L): 2+ Gastrointestinal/Abdominal: positive: Soft, Protuberent, Distended. negative: Guarding, Rebound Rectal Exam: positive: normal rectal tone. negative: melena Musculoskeletal: positive: Normal Inspection. negative: CVA Tenderness Extremity: positive: Normal Capillary Refill, Normal Inspection, Normal Range of Motion Integumentary: positive: Normal Color, Dry, Warm. negative: Swelling, Ecchymosis Neurologic: positive: Alert, Motor Strength 5/5, Respond to painful stimul, Confused, Disoriented. negative: Fully Oriented, EOM Palsy, Facial Droop, Numbness, Sensory Deficit ED Treatment Course - LABORATORY CBC & Chemistry Diagram: 06/12/19 05:18 06/12/19 05:18 - RADIOLOGY Radiology Studies Ordered: Category Date Time Status CHEST X-RAY PORTABLE* [RAD] Stat Radiology 06/11/19 14:45 Ordered Medical Decision Making - Medical Decision Making Carla Cox is a 58 yo F w a pmh of COPD, CHF,NIDDM, HLD, HTN but noncompliant with any medications, polysubstance abuse including including alcohol abuse and withdrawal with delirium tremens, seizures, and hallucinations , Opiod overdose and withdrawal taking methadone and also took heroin this morning who presents from [facility] confused and altered. The patient received naloxone this morning at [facility]. When she arrived in the ER she was satting at 72% with a good wave form. Her SpO2 saturation went up to 92% on 5LNC. She also felt warm to touch and had a rectal temperature of 101. When she was placed on the monitor her blood pressure was noted to be elevated at 198/100. She was also breathing very fast at a rate of 32. Her fingerstick was noted to be 126 upon ED entrance. Unknown when patient's last alcoholic drink was. Vital Signs Temp Pulse Resp BP Pulse Ox 98.6 F 88 28 H 196/72 H 92 L 06/11/19 14:31 06/11/19 14:31 06/11/19 14:31 06/11/19 14:31 06/11/19 14:31 DDx IBNLT: Heroin overdose vs withdrawal, alcoholic withdrawal, Sepsis - likely souce PNA, COPD exacerbation vs Heart failure, ACS, electrolyte/metabolic disturbance, acidosis - less likely DKA bc normal FS Bedside US: Cardiac:Grossly normal cardiac exam with good ejection fraction and no pericardial effusion IVC: Flat and collapsible - patient can likely tolerate IV hydration Lungs: Diffuse B-lines in all lung isidro suggestive of pulmonary edema. No pleural effusions identified. MDM: Patient is septic probably from PNA, at risk for alcohol withdrawal and DT , OD'ed on heroin and methadone. The patient has diffuse B-lines in all lung isidro with a normal EF suggestive of non-cardiac pulmonary edema. Speaking with patient's nurse at [facility] [phone]: She got nebulizer, 2mg of naloxone at 10:54, and methadone 10mg at 11:35 am. Given concern for large methadone dosage we are monitoring the patient's QTc on the Suazo monitor EKG #1 - Qtc 433 - Phillios monitor is now reading Qtc in high 500's EKG #2 - Qtc - 577 - Qtc on monitor has now gone above 630 but the patient is mentating well and responds to noxious stimuli - Zoll brought to bedside, defibrillation pads placed on patient - Airway equipment brought to bedside - 2G IV Mag given to patient - Her BP has been persistently elevated - despite multiple sublingual nitro's and nitro past her BP is still elevated, starting nitro drip and giving her her home dose of carvedilol and lisinopril Patient will be admitted to the hospital for further disposition - Tele/ICU consult and likely admission Discharge - Discharge Information Problems reviewed: Yes Clinical Impression/Diagnosis: Opioid use disorder HTN (hypertension) Qualifiers: Hypertension type: unspecified Qualified Code(s): I10 - Essential (primary) hypertension CHF (congestive heart failure) Qualifiers: Heart failure type: unspecified Heart failure chronicity: unspecified Qualified Code(s): I50.9 - Heart failure, unspecified COPD (chronic obstructive pulmonary disease) Qualifiers: COPD type: unspecified COPD Qualified Code(s): J44.9 - Chronic obstructive pulmonary disease, unspecified Alcohol dependence with withdrawal Qualifiers: Complication of substance-induced condition: with delirium Qualified Code(s): F10.231 - Alcohol dependence with withdrawal delirium Condition: Guarded - Admission Yes - Follow up/Referral - Patient Discharge Instructions - Post Discharge Activity
[2019-06-11] MEDS: SODIUM CHLORIDE 0.9% 500 ML INFUS.BAG IV ONE ×2 (15:18→15:50)
[2019-06-11] MEDS ORDERED: ACETAMINOPHEN 1000 MG/100 ML VIAL (NON FORMULARY) IVPB ONE (15:27)
[2019-06-11] MEDS ORDERED: NITROGLYCERIN SUBLINGUAL 1/150 0.4 MG TAB SL ONE ×3 (15:30→16:38)
[2019-06-11] MEDS ORDERED: FUROSEMIDE 40 MG/4 ML INJECTABLE VIAL IVPUSH ONE (15:30)
[2019-06-11] MEDS ORDERED: NITROGLYCERIN 2% OINTMENT - 1GM PACKET TD ONE ×2 (15:33→15:36)
[2019-06-11] MEDS ORDERED: FUROSEMIDE 40 MG/4 ML INJECTABLE VIAL ONE (15:36)
[2019-06-11] MEDS ORDERED: NITROGLYCERIN SUBLINGUAL 1/150 0.4 MG TAB ONE (15:36)
[2019-06-11 15:42] LABS: EOS % 0.1 % (0-4.5); HEMATOCRIT 49.8 % (32.4-45.2); HEMOGLOBIN 16.1 GM/dL (10.7-15.3); LYMPH % 8.3 % (8-40); MCH 29.3 pg (25.7-33.7); MCHC 32.2 g/dl (32.0-36.0); MEAN CELL VOLUME 90.9 fl (80-96); NEUT % 87.6 % (42.8-82.8); PLATELET COUNT 376 K/MM3 (134-434); RBC 5.48 M/mm3 (3.60-5.2); RDW 18.2 % (11.6-15.6); WHITE BLOOD COUNT 9.2 K/mm3 (4.0-10.0)
[2019-06-11 15:47] LABS: ARTERIAL BLOOD GAS BASE EXCESS 7.9 meq/l (-2-2); ARTERIAL BLOOD GAS pH 7.41 (7.35-7.45); CARBOXYHEMOGLOBIN 3.6 % (0-2)
--- NOTE | 2019-06-11 16:01 | PDOC ---
Documentation entered by Rahul Alvarado SCRIBE, acting as scribe for Christina Luz MD. Christina Luz MD: This documentation has been prepared by the Christiano wetzel Xhesika, SCRIBE, under my direction and personally reviewed by me in its entirety. I confirm that the documentation accurately reflects all work, treatment, procedures, and medical decision making performed by me. Attending Attestation - Resident Resident Name: Ayan Skelton - ED Attending Attestation I have performed the following: I have examined & evaluated the patient, The case was reviewed & discussed with the resident, I agree w/resident's findings & plan, Exceptions are as noted - HPI HPI: 06/11/19 15:23 The patient is a 58 year old female with a significant PMH of COPD, CHF, DM, HLD , HTN, alcohol/ opioid/ heroin/ crack/cocaine dependence who presents to the emergency department [facility] from [facility] for SOB and hypoxia. Per [facility], the patient was admitted at [facility] for COPD exacerbation. Pt was d/c back to [facility] for detox (heroin and cocaine) yesterday 06/10/19. While at [facility] patient became lethargic due to overdose and was treated with narcan.pt became very short of breath afterwords and hypoxic. sent to ED for evaluation Allergies: NKDA 06/11/19 15:56 - Physicial Exam PE: 06/11/19 15:58 Patient is awake alert no acute distress lungs are with bilateral crackles at the bases normal effort no accessory muscle use heart is regular tachycardia no murmurs rubs or gallops abdomen is soft nontender extremities are warm well perfused there is no noted peripheral edema neurologically the patient is awake moving all 4 extremities and speaking clearly - Medical Decision Making 06/11/19 15:59 58-year-old female history of COPD hypertension polysubstance abuse status post overdose treated with Narcan now with shortness of breath and hypoxia concerns for pulmonary edema induced from Narcan differential includes pneumonia COPD exacerbation effusion. Plan chest x-ray patient was initially extremely hypertensive treated with nitroglycerin and Lasix screening bedside ultrasound was performed did show diffuse B-lines chest x-ray was performed no sign of infiltrate patient will likely require admission to telemetry for pulmonary edema and overdose EKG shows no acute changes 06/11/19 17:58 PT with QT prolongation on second ECG. likely from methadone. bp improved after ntg sl x 2, past and nitro gtt. given her home meds per chart review. resp status improvedl was also given lasix. tox screen positive for methadone and cocaine. she reports using heroin this am. pt will need to be admitted for overdose., pulm edema. and QT abnormalitie. Heart Score/ECG Review #1 ECG reviewed & interpreted by me at: 14:45 General ECG Interpretation: Sinus Rhythm, Normal Rate (78, atrial enlargement. normal axis. TWI v4 - V6.), Normal Intervals, No acute ischemic changes #2 ECG reviewed & interpreted by me at: 16:45 General ECG Interpretation: Sinus Rhythm, Normal Rate, No acute ischemic changes Compared to previous ECG there are: Other (prolonged QT 571/ TWI, III, AVL v5/ v6) Critical Care Time/MDM Note Total Critical Care Time: 35 Critical Care Statement: The care of this patient involved high complexity decision making to prevent further life threatening deterioration of the patient 's condition and/or to evaluate & treat vital organ system(s) failure or risk of failure.
[2019-06-11 16:08] LABS: INR 1.18 (0.83-1.09); PROTHROMBIN TIME (PATIENT) 13.9 SEC (9.7-13.0)
[2019-06-11 16:11] LABS: ACTIVATED PTT 32.1 SECONDS (25.2-36.5)
[2019-06-11 16:27] LABS: PH,URINE 7.5 (5.0-8.0); URINE APPEARANCE CLEAR; URINE BILIRUBIN NEGATIVE (NEGATIVE); URINE COLOR YELLOW; URINE GLUCOSE (UA) NEGATIVE (NEGATIVE); URINE KETONE NEGATIVE (NEGATIVE); URINE LEUK ESTERASE NEGATIVE (NEGATIVE); URINE NITRITE NEGATIVE (NEGATIVE); URINE PROTEIN NEGATIVE (NEGATIVE); URINE UROBILINOGEN 0.2 mg/dL (0.2-1.0)
[2019-06-11 16:27] LABS: ALBUMIN 3.5 g/dl (3.4-5.0); ALK PHOS 144 U/L (45-117); ANION GAP 5 MMOL/L (8-16); BILIRUBIN,TOTAL 0.9 mg/dL (0.2-1); BLOOD UREA NITROGEN 13.6 mg/dL (7-18); CALCIUM 8.9 mg/dL (8.5-10.1); CHLORIDE 104 mmol/L (98-107); CO2 33 mmol/L (21-32); CREATININE 0.8 mg/dL (0.55-1.3); GLUCOSE,RANDOM 117 mg/dL (74-106); SGPT/ALT 75 U/L (13-61); SODIUM 142 mmol/L (136-145); TOT PROT 7.1 g/dl (6.4-8.2)
[2019-06-11] MEDS ORDERED: MAGNESIUM SULF 50% (8.12 MEQ/2 ML-1 GM VIAL) IVPB ONE (16:35)
[2019-06-11 16:39] LABS: OPIATES, URI NEGATIVE ng/ml (CUTOFF=300); PHENCYCLIDINE,URINE NEGATIVE ng/ml (CUTOFF=25); URINE AMPHETAMINES NEGATIVE ng/ml (CUTOFF=500); URINE BARBITURATES NEGATIVE ng/ml (CUTOFF=200); URINE BENZODIAZEPINES NEGATIVE ng/ml (CUTOFF=200)
[2019-06-11] MEDS ORDERED: MAGNESIUM 1GM/D5W - 2 GM/200 ML IVPB IVPB ONE (16:49)
[2019-06-11 16:53] LABS: POTASSIUM 4.1 mmol/L (3.5-5.1); SGOT/AST 71 U/L (15-37)
[2019-06-11 17:01] LABS: COCAINE, UR POSITIVE ng/ml (CUTOFF=300); METHADONE, UR POSITIVE ng/ml (CUTOFF=300)
[2019-06-11] MEDS ORDERED: NITROGLYCERIN 25MG/D5W 250ML 25 MG/250 ML ML IVPB ONE ×2 (17:18→21:55)
[2019-06-11] MEDS ORDERED: LISINOPRIL 10 MG TABLET (FP) PO ONE (17:23)
[2019-06-11] MEDS ORDERED: CARVEDILOL 6.25 MG TABLET (FP) PO ONE (17:24)
[2019-06-11] MEDS ORDERED: CARVEDILOL 3.125 MG TABLET (FP) ONE (17:36)
[2019-06-11] MEDS ORDERED: LISINOPRIL 5 MG TABLET (FP) ONE (17:36)
[2019-06-11] MEDS: NITROGLYCERIN 25MG/D5W 250ML 25 MG/250 ML ML IVPB SCH (17:44)
[2019-06-11 17:50] LABS: MAGNESIUM 1.9 mg/dL (1.8-2.4); PHOSPHOROUS 2.3 mg/dL (2.5-4.9)
--- NOTE | 2019-06-11 19:18 | PN ---
Teaching Attending Note Name of Resident: Geeta Trevino ATTENDING PHYSICIAN STATEMENT I saw and evaluated the patient. I reviewed the resident's note and discussed the case with the resident. I agree with the resident's findings and plan as documented. SUBJECTIVE: Patient is a 58 year old woman who is homeless with a PMH of COPD, Tobacco use, ?CHF, NIDDM, HLD, HTN (nonadherent with medications) and Polysubstance abuse ( heroin, alcohol), Alcohol withdrawal with delirium tremens, Seizures and hallucinations, Opiod overdose and withdrawal taking methadone and also took heroin this morning who presents from [facility] confused and altered. The patient received Naloxone this morning at [facility]. When she arrived in the ER her Oxygen saturation was 72% with a good wave form. Her SpO2 saturation went up to 92% on 5LNC. She also felt warm to touch and had a rectal temperature of 101. When she was placed on the monitor her blood pressure was noted to be elevated at 198/100. She was also breathing very fast at a rate of 32. Her fingerstick glucose was noted to be 126. Unknown when patient's last alcoholic drink was. Was recently hospitalized at [facility] for "SOB". History is limited because patient is lethargic and stuporous. She responds to sternal rub and most noxious stimuli but does not respond to speech. Also noted to have prolonged QTc in the ER. OBJECTIVE: Lethargic Vital Signs Period Temp Pulse Resp BP Sys/Reich Pulse Ox Last 24 Hr 98.6 F-101.1 F 88-88 20-28 119-196/72-90 92-100 HEENT: No Jaundice, eye redness or discharge, PERRLA, EOMI. Normocephalic, atraumatic. External ears are normal and hearing is grossly intact. No nasal discharge. Neck: Supple, nontender. No palpable adenopathy or thyromegaly. No JVD Chest: Good effort. Diminished breath sounds. Clear to auscultation and percussion. Heart: Regular. No S3 or rub; 3/6 CHEPE. Abdomen: Distended and tympanic, soft, nontender and no HSM. No rebound or guarding. Normal bowel sounds. Ext: Peripheral pulses intact. No leg edema. Skin: Warm and dry. No petechiae, rash or ecchymosis. Neuro: Lethargic. Not tremulous. Unable to follow commands. Moves all limbs. Withdraws to noxious stimulus. Psych: Unable to assess. Current Medications Generic Name Dose Route Start Last Admin Trade Name Noris PRN Reason Stop Dose Admin Nitroglycerin/Dextrose 25 mg in 250 mls @ 6 mls/hr 06/11/19 17:30 06/11/19 18 :28 Nitroglycerin 25mg/D5w 250ml IVPB 100 mcg/min TITR CEZAR 60 mls/hr Titration 10 MCG/MIN Home Medications Medication Instructions Recorded Fluticasone/Salmeterol [Advair 1 each IH DAILY #1 blst.w.dev 08/23/18 250-50 Diskus] Atorvastatin Calcium 40 mg PO HS 06/10/19 Carvedilol [Coreg -] 6.25 mg PO BID 06/10/19 Fluticasone/Salmeterol [Advair Hfa 1 inh PO BID 06/10/19 230-21 Mcg Inhaler] Lisinopril 10 mg PO DAILY 06/10/19 Metformin HCl [Glucophage] 500 mg PO DAILY 06/10/19 Metoprolol Succinate [Toprol Xl -] 50 mg PO DAILY 06/10/19 Montelukast Na [Singulair -] 10 mg PO HS 06/10/19 Tiotropium [place] [Spiriva] 18 mcg IH DAILY 06/10/19 predniSONE [Deltasone -] 40 mg PO DAILY 06/10/19 Abnormal Lab Results 06/11/19 06/11/19 06/11/19 15:02 15:02 15:02 RBC 5.48 H Hgb 16.1 H Hct 49.8 H RDW 18.2 H Neutrophils % 87.6 H Monocytes % 3.0 L PT with INR 13.90 H INR 1.18 H ABG pCO2 at Pt Temp ABG pO2 at Pt Temp ABG HCO3 ABG O2 Sat (Measured) ABG Base Excess Carboxyhemoglobin Carbon Dioxide 33 H Anion Gap 5 L Random Glucose 117 H Phosphorus 2.3 L AST 71 H ALT 75 H Alkaline Phosphatase 144 H Ur Specific [place] Methadone Screen Cocaine Screen 06/11/19 06/11/19 06/11/19 15:30 15:30 15:40 RBC Hgb Hct RDW Neutrophils % Monocytes % PT with INR INR ABG pCO2 at Pt Temp 55.0 H ABG pO2 at Pt Temp 61.0 L ABG HCO3 34.2 H ABG O2 Sat (Measured) 90.0 L ABG Base Excess 7.9 H Carboxyhemoglobin 3.6 H Carbon Dioxide Anion Gap Random Glucose Phosphorus AST ALT Alkaline Phosphatase Ur Specific [place] 1.007 L Methadone Screen Positive A* Cocaine Screen Positive A* ASSESSMENT AND PLAN: 1. Drug overdose/Hypercapnic and hypoxic respiratory failure - CXR shows cardiomegaly with pulmonary vascular congestion and fluid in the fissures. Diuresed over 2 liters of urine with 40 mg IV lasix given in the ER. Urine toxicology showed methadone and cocaine. Flu swab was negative. Sepsis work up done. Fever may be related to drug OD/withdrawal. No leukocytosis. No indication for antibiotics at this time. EKG shows NSR with LAE and inferolateral T wave inversion. Initial troponin is negative. Will consult ICU and monitor closely and intubate if clinically indicated. Will do speech and swallow evaluation before any oral feeds, get head CT scan, ECHO, repeat EKG and rule out ACS. Trend LFTs ang get RUQ sonogram and hepatitis serology. Replenish low phosphate. The day team will strive to get her medical records from [facility]. Will continue comprehensive care for all of patients comorbid conditions. Will get correct weight and height for BMI once she is stable. 2. DM For now, we will hold the home diabetes drugs and implement sliding scale insulin regimen. Provide comprehensive diabetes care with patient teaching and counseling about the importance of adherence to prescribed diabetes regimen, euglycemia, eye care and foot care. 3. Tobacco Use When she is stable will personal counselor patient on risks associated with tobacco use. We will provide patient all the necessary assistance to facilitate smoking cessation and prescribe Nicotine patch. 4. Alcohol/Polysubstance abuse - Will continue to monitor closely. Implement [facility] librium alcohol withdrawal protocol and do neurochecks. Implement seizure, fall and aspiration precautions. Treat with thiamine and folic acid and monitor electrolytes (Ca,Mg,K,P). Counseled patient about abstaining from alcohol. Will consult water rights specialist and refer to alcohol detox upon discharge. 5. Hypertensive emergency - Started on IV Nitroglycerin drip in the ER. Will restart suitable outpatient antihypertensive drugs. Revise regimen to ensure [id number] excellent BP control and personal counselor patient on the injurious effects of uncontrolled hypertension. Nonpharmacologic measures to control hypertension like weight loss, salt restriction and exercise discussed. Importance of adherence to treatment regimen and attainment of normotension will be emphasized once she wakes up. 6. DVT prophylaxis - Lovenox 40 mg SQ q 24 hours. 7. Advance directives - Full code
--- NOTE | 2019-06-11 19:59 | HP ---
CHIEF COMPLAINT: Overdose PCP: None HISTORY OF PRESENT ILLNESS: 58F with PMH of CHF, DM, HLD, HTN, PSA (alcohol, opioids, crack cocaine) who presents today due to suspected overdose while at [facility] for detox. Patient was not communicating with examiners so history is limited to chart review. She was recently admitted to [facility] for a COPD exacerbation and then sent to [facility] for detox on 06/10. As per [facility] notes her last use of heroin was 06/09, cocaine 06/08, and alcohol was on 06/10. Patient was reportedly lethargic at [facility], and was given naloxone. Upon transfer from [facility] to ED patient was noted to be tachycardic and tachypneic with O2 saturation of 72% . Patient denies taking any substances today, endorses heroin use last night. ER course was notable for: (1) Was noted to have temperature of 101.1, BP 196/72. Was given Nitrostat SL x3 , Nitropaste, Carvedilol, Lisinopril and IV Tylenol. (2) Chest X-Ray completed, notable for congestion. 40 Lasix IV given, urinary output ~2500mL (3) Nitroglycerin drip was begun, patient remains Hypertensive. Patient is also noted to have prolonged QTc on Monitor. EKG repeated: Qtc 605 Recent Travel: Did not respond PAST MEDICAL HISTORY: CHF, DM, HLD, HTN, PSA (alcohol, opioids, crack cocaine) PAST SURGICAL HISTORY: Did not respond FAMILY MEDICAL HISTORY: Did not respond Social History: Smokin pack year history Alcohol: 1 pint of vodka daily Drugs: 3 bags of heroin and cocaine. Snorting. Homeless, lacks strong support system Allergies No Known Allergies Allergy (Verified 08/20/18 18:23) HOME MEDICATIONS: Home Medications Medication Instructions Recorded Fluticasone/Salmeterol [Advair 1 each IH DAILY #1 blst.w.dev 08/23/18 250-50 Diskus] Atorvastatin Calcium 40 mg PO HS 06/10/19 Carvedilol [Coreg -] 6.25 mg PO BID 06/10/19 Fluticasone/Salmeterol [Advair Hfa 1 inh PO BID 06/10/19 230-21 Mcg Inhaler] Lisinopril 10 mg PO DAILY 06/10/19 Metformin HCl [Glucophage] 500 mg PO DAILY 06/10/19 Metoprolol Succinate [Toprol Xl -] 50 mg PO DAILY 06/10/19 Montelukast Na [Singulair -] 10 mg PO HS 06/10/19 Tiotropium [place] [Spiriva] 18 mcg IH DAILY 06/10/19 predniSONE [Deltasone -] 40 mg PO DAILY 06/10/19 REVIEW OF SYSTEMS. Patient denies all review of systems symptoms. CONSTITUTIONAL: Absent: fever, chills, diaphoresis, generalized weakness, malaise, loss of appetite, weight change HEENT: Absent: rhinorrhea, nasal congestion, throat pain, throat swelling, difficulty swallowing, mouth swelling, ear pain, eye pain, visual changes CARDIOVASCULAR: Absent: chest pain, syncope, palpitations, irregular heart rate, lightheadedness , peripheral edema RESPIRATORY: Absent: cough, shortness of breath, dyspnea with exertion, orthopnea, wheezing, stridor, hemoptysis GASTROINTESTINAL: Absent: abdominal pain, abdominal distension, nausea, vomiting, diarrhea, constipation, melena, hematochezia GENITOURINARY: Absent: dysuria, frequency, urgency, hesitancy, hematuria, flank pain, genital pain MUSCULOSKELETAL: Absent: myalgia, arthralgia, joint swelling, back pain, neck pain SKIN: Absent: rash, itching, pallor HEMATOLOGIC/IMMUNOLOGIC: Absent: easy bleeding, easy bruising, lymphadenopathy, frequent infections ENDOCRINE: Absent: unexplained weight gain, unexplained weight loss, heat intolerance, cold intolerance NEUROLOGIC: Absent: headache, focal weakness or paresthesias, dizziness, unsteady gait, seizure, mental status changes, bladder or bowel incontinence PSYCHIATRIC: Absent: anxiety, depression, suicidal or homicidal ideation, hallucinations. PHYSICAL EXAMINATION Vital Signs - 24 hr 06/11/19 06/11/19 06/11/19 14:31 14:45 17:45 Temperature 98.6 F 101.1 F H Pulse Rate 88 Pulse Rate [ Apical] Respiratory 28 H Rate Blood Pressure 196/72 H Blood Pressure 160/72 [Right Arm] O2 Sat by Pulse 92 L Oximetry (%) 06/11/19 06/11/19 06/11/19 17:50 18:15 18:30 Temperature Pulse Rate Pulse Rate [ 88 Apical] Respiratory 20 Rate Blood Pressure Blood Pressure 170/82 119/72 178/74 H [Right Arm] O2 Sat by Pulse 100 Oximetry (%) 06/11/19 06/11/19 06/11/19 18:44 19:00 19:02 Temperature Pulse Rate Pulse Rate [ Apical] Respiratory 20 Rate Blood Pressure Blood Pressure 160/75 144/90 [Right Arm] O2 Sat by Pulse 98 Oximetry (%) 06/11/19 19:10 Temperature 98.7 F Pulse Rate Pulse Rate [ 83 Apical] Respiratory 24 H Rate Blood Pressure Blood Pressure 176/90 H [Right Arm] O2 Sat by Pulse 92 L Oximetry (%) GENERAL: Arousable, refuses to answer questions regarding orientation, not in acute distress. HEAD: Normal with no signs of trauma. EYES:EOMI EARS, NOSE, THROAT: Dry mucous membranes. NECK: No JVD LUNGS: Poor airway movement, no crackles or wheezes appreciated HEART: 3/6 holosystolic murmur present on LSB. ABDOMEN: Slightly distended, tympanic on percussion, non tender to palpation. LOWER EXTREMITIES: 2+ pulses, warm, well-perfused. No calf tenderness. No peripheral edema. PSYCHIATRIC: Uncooperative. SKIN: Warm, dry, normal turgor, no rashes or lesions noted, normal capillary refill. Laboratory Results - last 24 hr 06/11/19 06/11/19 06/11/19 15:02 15:02 15:02 WBC 9.2 RBC 5.48 H Hgb 16.1 H Hct 49.8 H MCV 90.9 MCH 29.3 MCHC 32.2 RDW 18.2 H Plt Count 376 MPV 9.0 Absolute Neuts (auto) 8.0 Neutrophils % 87.6 H Lymphocytes % 8.3 Monocytes % 3.0 L Eosinophils % 0.1 Basophils % 1.0 Nucleated RBC % 0 PT with INR INR PTT (Actin FS) Puncture Site ABG pH ABG pCO2 at Pt Temp ABG pO2 at Pt Temp ABG HCO3 ABG O2 Sat (Measured) ABG O2 Content ABG Base Excess [place] Test Carboxyhemoglobin Methemoglobin Oxygen Flow Rate Sodium 142 Potassium 4.1 Chloride 104 Carbon Dioxide 33 H Anion Gap 5 L BUN 13.6 Creatinine 0.8 Est GFR (CKD-EPI)AfAm 92.87 Est GFR (CKD-EPI)NonAf 80.13 Random Glucose 117 H Lactic Acid 1.4 Calcium 8.9 Phosphorus 2.3 L Magnesium 1.9 Total Bilirubin 0.9 AST 71 H ALT 75 H Alkaline Phosphatase 144 H Creatine Kinase 124 CK-MB (CK-2) 3.3 Troponin I 0.05 Total Protein 7.1 Albumin 3.5 Urine Color Urine Appearance Urine pH Ur Specific [place] Urine Protein Urine Glucose (UA) Urine Ketones Urine Blood Urine Nitrite Urine Bilirubin Urine Urobilinogen Ur Leukocyte Esterase Opiates Screen Methadone Screen Barbiturate Screen Phencyclidine Screen Ur Amphetamines Screen MDMA (Ecstasy) Screen Benzodiazepines Screen Cocaine Screen U Marijuana (THC) Screen Alcohol, Quantitative < 3 Influenza A (Rapid) Influenza B (Rapid) 06/11/19 06/11/19 06/11/19 15:02 15:30 15:30 WBC RBC Hgb Hct MCV MCH MCHC RDW Plt Count MPV Absolute Neuts (auto) Neutrophils % Lymphocytes % Monocytes % Eosinophils % Basophils % Nucleated RBC % PT with INR 13.90 H INR 1.18 H PTT (Actin FS) 32.1 Puncture Site ABG pH ABG pCO2 at Pt Temp ABG pO2 at Pt Temp ABG HCO3 ABG O2 Sat (Measured) ABG O2 Content ABG Base Excess [place] Test Carboxyhemoglobin Methemoglobin Oxygen Flow Rate Sodium Potassium Chloride Carbon Dioxide Anion Gap BUN Creatinine Est GFR (CKD-EPI)AfAm Est GFR (CKD-EPI)NonAf Random Glucose Lactic Acid Calcium Phosphorus Magnesium Total Bilirubin AST ALT Alkaline Phosphatase Creatine Kinase CK-MB (CK-2) Troponin I Total Protein Albumin Urine Color Yellow Urine Appearance Clear Urine pH 7.5 D Ur Specific [place] 1.007 L Urine Protein Negative Urine Glucose (UA) Negative Urine Ketones Negative Urine Blood Negative Urine Nitrite Negative Urine Bilirubin Negative Urine Urobilinogen 0.2 Ur Leukocyte Esterase Negative Opiates Screen Negative Methadone Screen Positive A* Barbiturate Screen Negative Phencyclidine Screen Negative Ur Amphetamines Screen Negative MDMA (Ecstasy) Screen Negative Benzodiazepines Screen Negative Cocaine Screen Positive A* U Marijuana (THC) Screen Negative Alcohol, Quantitative Influenza A (Rapid) Influenza B (Rapid) 06/11/19 06/11/19 15:40 18:05 WBC RBC Hgb Hct MCV MCH MCHC RDW Plt Count MPV Absolute Neuts (auto) Neutrophils % Lymphocytes % Monocytes % Eosinophils % Basophils % Nucleated RBC % PT with INR INR PTT (Actin FS) Puncture Site No Result Required. ABG pH 7.41 ABG pCO2 at Pt Temp 55.0 H ABG pO2 at Pt Temp 61.0 L ABG HCO3 34.2 H ABG O2 Sat (Measured) 90.0 L ABG O2 Content 18.8 ABG Base Excess 7.9 H [place] Test No Result Required. Carboxyhemoglobin 3.6 H Methemoglobin < 1.0 Oxygen Flow Rate No Result Required. Sodium Potassium Chloride Carbon Dioxide Anion Gap BUN Creatinine Est GFR (CKD-EPI)AfAm Est GFR (CKD-EPI)NonAf Random Glucose Lactic Acid Calcium Phosphorus Magnesium Total Bilirubin AST ALT Alkaline Phosphatase Creatine Kinase CK-MB (CK-2) Troponin I Total Protein Albumin Urine Color Urine Appearance Urine pH Ur Specific [place] Urine Protein Urine Glucose (UA) Urine Ketones Urine Blood Urine Nitrite Urine Bilirubin Urine Urobilinogen Ur Leukocyte Esterase Opiates Screen Methadone Screen Barbiturate Screen Phencyclidine Screen Ur Amphetamines Screen MDMA (Ecstasy) Screen Benzodiazepines Screen Cocaine Screen U Marijuana (THC) Screen Alcohol, Quantitative Influenza A (Rapid) Negative Influenza B (Rapid) Negative ASSESSMENT/PLAN: 58F with PMH of CHF, DM, HLD, HTN, PSA (alcohol, opioids, crack cocaine) who presents today due to suspected overdose while at [facility]. 1) Suspected Overdose - Found to be lethargic at [facility] received naloxone and then methadone - Patient was reported to display withdrawal symptoms however currently does not show withdrawal symptoms and does not comply with CIWA and COWS exam - Fall Precautions - Seizure Precautions - HOB elevated/ aspiration precautions - 2mg IV Ativan PRN - Patient lethargic- Head CT - Addiction Medicine Consultation for management of withdrawal in the setting of prolonged QTc, Appreciate recs - Social work consult- patient homeless and lack of support system. 2) Acute Hypoxic Hypercapneic Respiratory Failure - Patient has history of COPD, however Chest X-Ray does not demonstrate hyperexpansion of lungs. No infiltrate on Chest X-ray. Vascular congestion present - AB.41/55/61/34.2/90% - Currently on 4LNC. Consider High Flow O2 - Repeat chest X-ray in the AM - Patient has home medication of Prednisone listed, was recently admitted to [facility] for COPD/SOB. Obtain records in the AM to find out if patient is on taper - ICU consulted for airway management 3)Heart Failure - Hx of CHF, eitology may be related to uncontrolled HTN vs cocaine use vs ischemia - Patient was Hypertensive on arrival: 196/72 - Patient was given carvedilol, lasix, and lisinopril - Started on nitroglycerin drip, currently at 100 mcg/min, still hypertensive 179/97 - Cardene drip - 3/6 Holosystolic murmur present, Echo in the AM 4)Fever - Patient was noted to have temp of 101.1. Given IV Tylenol. - WBC 9.2 - Patient is afebrile now, not tachycardic, no clear source of infection: U/A and chest x-ray negative, rapid flu negative - Will follow temperature curve, patient does not require Antibiotics at this moment. - Sputum culture and urine legionella - Follow blood and urine cultures 5) Transaminitis - Patient has elevated but downtrending AST/ALT - Patient has elevated Alk Phos - RUQ U/S - Hep Panel 6)Prolonged QTc - QTc 433 on initial presentation - Repeat EKG shows Qtc 605 - Mag 2 grams IV given - Avoid QT prolonging agents - Continuos cardiac monitoring DVT: Holding A/C until Head CT negative F: No IV Fluids E: Trend BMP and Mag, Phosphate N: NPO Dispo: Admit to ICU Visit type - Emergency Visit Emergency Visit: Yes ED Registration Date: 06/11/19 Care time: The patient presented to the Emergency Department on the above date and was hospitalized for further evaluation of their emergent condition. - New Patient This patient is new to me today: Yes Date on this admission: 06/11/19 - Critical Care Critical Care patient: Yes Total Critical Care Time (in minutes): 35 Critical Care Statement: The care of this patient involved high complexity decision making to prevent further life threatening deterioration of the patient 's condition and/or to evaluate & treat vital organ system(s) failure or risk of failure. ATTENDING PHYSICIAN STATEMENT I saw and evaluated the patient. I reviewed the resident's note and discussed the case with the resident. I agree with the resident's findings and plan as documented. SUBJECTIVE: OBJECTIVE: ASSESSMENT AND PLAN:
--- NOTE | 2019-06-11 21:29 | CONSULT ---
Consultation: REQUESTING PROVIDER: Dr. Cervantes CONSULT REQUEST: ICU management HISTORY OF PRESENT ILLNESS: patient is 58 year old female with a PMH of COPD, Tobacco use, ?CHF, DDM, HLD, HTN (not on medications) and Polysubstance abuse (heroin, cocaine,and alcohol) presents to the ED from [facility] with altered mental status - patient had received narcan x1 and 1 of methadone at [facility] and was still stupurous so she came to the ED- upon arrival patient was febrile to 101; BP wiht systolics in the 200's (patient subsequently started on nitro gtt) no WBC ; electrolytes wnl (aside from slightly low potassium) ABG was done with Ph 7.41 Pc02 55 CXR was done patient found to have pulmonary vascular congestion - patient received lasix 40 x1 - patients intial EKG had a qtc of 423 then subsequently elongated to the high 500's- and patient received 2mg of magnesium sulfate utox was positive for cocaine and methadone- patient endorsed she last used heroin and cocaine yesterday- she normally drinks a pint of vodka daily (last drink was yesterday morning) REVIEW OF SYSTEMS: UNABLE TO OBTAIN DUE TO PATIENTS MENTAL STATUS CONSTITUTIONAL: Absent: fever, chills, diaphoresis, generalized weakness, malaise, loss of appetite, weight change HEENT: Absent: rhinorrhea, nasal congestion, throat pain, throat swelling, difficulty swallowing, mouth swelling, ear pain, eye pain, visual changes CARDIOVASCULAR: Absent: chest pain, syncope, palpitations, irregular heart rate, lighth eadedness, peripheral edema RESPIRATORY: Absent: cough, shortness of breath, dyspnea with exertion, orthopnea, wheezing, stridor, hemoptysis GASTROINTESTINAL: Absent: abdominal pain, abdominal distension, nausea, vomiting, diarrhea, constipation, melena, hematochezia GENITOURINARY: Absent: dysuria, frequency, urgency, hesitancy, hematuria, flank pain, genital pain MUSCULOSKELETAL: Absent: myalgia, arthralgia, joint swelling, back pain, neck pain SKIN: Absent: rash, itching, pallor HEMATOLOGIC/IMMUNOLOGIC: Absent: easy bleeding, easy bruising, lymphadenopathy, frequent infections ENDOCRINE: Absent: unexplained weight gain, unexplained weight loss, heat intolerance, cold intolerance NEUROLOGIC: Absent: headache, focal weakness or paresthesias, dizziness, unsteady gait, seizure, mental status changes, bladder or bowel incontinence PSYCHIATRIC: Absent: anxiety, depression, suicidal or homicidal ideation, hallucinations. PHYSICAL EXAMINATION Vital Signs - 24 hr 06/11/19 06/11/19 06/11/19 14:31 14:45 17:45 Temperature 98.6 F 101.1 F H Pulse Rate 88 Pulse Rate [ Apical] Respiratory 28 H Rate Blood Pressure 196/72 H Blood Pressure 160/72 [Right Arm] O2 Sat by Pulse 92 L Oximetry (%) 06/11/19 06/11/19 06/11/19 17:50 18:15 18:30 Temperature Pulse Rate Pulse Rate [ 88 Apical] Respiratory 20 Rate Blood Pressure Blood Pressure 170/82 119/72 178/74 H [Right Arm] O2 Sat by Pulse 100 Oximetry (%) 06/11/19 06/11/19 06/11/19 18:44 19:00 19:02 Temperature Pulse Rate Pulse Rate [ Apical] Respiratory 20 Rate Blood Pressure Blood Pressure 160/75 144/90 [Right Arm] O2 Sat by Pulse 98 Oximetry (%) 06/11/19 19:10 Temperature 98.7 F Pulse Rate Pulse Rate [ 83 Apical] Respiratory 24 H Rate Blood Pressure Blood Pressure 176/90 H [Right Arm] O2 Sat by Pulse 92 L Oximetry (%) GENERAL: somnolent yet arousable to sternal rub; yawning . EYES:PEERLA; EOMI; no scleral icterus NECK: no JVD; no lymphadenopathy LUNGS:diminished breath sounds at the bases; no rales/rhonchi or wheezing. HEART: RRR s1 s2; 3/6 systolic murmur. ABDOMEN: soft; NT/ND +BS in all 4 quadrants MUSCULOSKELETAL: Normal range of motion at all joints. No bony deformities or tenderness. No CVA tenderness. EXTREMITIES: warm; well-perfused no clubbing/cyanosis or edema NEUROLOGICAL: somnolent; yet arousable PSYCHIATRIC: Cooperative. Good eye contact. Appropriate mood and affect. SKIN: Warm, dry, normal turgor, no rashes or lesions noted. Laboratory Results - last 24 hr 06/11/19 06/11/19 06/11/19 15:02 15:02 15:02 WBC 9.2 RBC 5.48 H Hgb 16.1 H Hct 49.8 H MCV 90.9 MCH 29.3 MCHC 32.2 RDW 18.2 H Plt Count 376 MPV 9.0 Absolute Neuts (auto) 8.0 Neutrophils % 87.6 H Lymphocytes % 8.3 Monocytes % 3.0 L Eosinophils % 0.1 Basophils % 1.0 Nucleated RBC % 0 PT with INR INR PTT (Actin FS) Puncture Site ABG pH ABG pCO2 at Pt Temp ABG pO2 at Pt Temp ABG HCO3 ABG O2 Sat (Measured) ABG O2 Content ABG Base Excess [place] Test Carboxyhemoglobin Methemoglobin Oxygen Flow Rate Sodium 142 Potassium 4.1 Chloride 104 Carbon Dioxide 33 H Anion Gap 5 L BUN 13.6 Creatinine 0.8 Est GFR (CKD-EPI)AfAm 92.87 Est GFR (CKD-EPI)NonAf 80.13 Random Glucose 117 H Lactic Acid 1.4 Calcium 8.9 Phosphorus 2.3 L Magnesium 1.9 Total Bilirubin 0.9 AST 71 H ALT 75 H Alkaline Phosphatase 144 H Creatine Kinase 124 CK-MB (CK-2) 3.3 Troponin I 0.05 Total Protein 7.1 Albumin 3.5 Urine Color Urine Appearance Urine pH Ur Specific [place] Urine Protein Urine Glucose (UA) Urine Ketones Urine Blood Urine Nitrite Urine Bilirubin Urine Urobilinogen Ur Leukocyte Esterase Opiates Screen Methadone Screen Barbiturate Screen Phencyclidine Screen Ur Amphetamines Screen MDMA (Ecstasy) Screen Benzodiazepines Screen Cocaine Screen U Marijuana (THC) Screen Alcohol, Quantitative < 3 Influenza A (Rapid) Influenza B (Rapid) 06/11/19 06/11/19 06/11/19 15:02 15:30 15:30 WBC RBC Hgb Hct MCV MCH MCHC RDW Plt Count MPV Absolute Neuts (auto) Neutrophils % Lymphocytes % Monocytes % Eosinophils % Basophils % Nucleated RBC % PT with INR 13.90 H INR 1.18 H PTT (Actin FS) 32.1 Puncture Site ABG pH ABG pCO2 at Pt Temp ABG pO2 at Pt Temp ABG HCO3 ABG O2 Sat (Measured) ABG O2 Content ABG Base Excess [place] Test Carboxyhemoglobin Methemoglobin Oxygen Flow Rate Sodium Potassium Chloride Carbon Dioxide Anion Gap BUN Creatinine Est GFR (CKD-EPI)AfAm Est GFR (CKD-EPI)NonAf Random Glucose Lactic Acid Calcium Phosphorus Magnesium Total Bilirubin AST ALT Alkaline Phosphatase Creatine Kinase CK-MB (CK-2) Troponin I Total Protein Albumin Urine Color Yellow Urine Appearance Clear Urine pH 7.5 D Ur Specific [place] 1.007 L Urine Protein Negative Urine Glucose (UA) Negative Urine Ketones Negative Urine Blood Negative Urine Nitrite Negative Urine Bilirubin Negative Urine Urobilinogen 0.2 Ur Leukocyte Esterase Negative Opiates Screen Negative Methadone Screen Positive A* Barbiturate Screen Negative Phencyclidine Screen Negative Ur Amphetamines Screen Negative MDMA (Ecstasy) Screen Negative Benzodiazepines Screen Negative Cocaine Screen Positive A* U Marijuana (THC) Screen Negative Alcohol, Quantitative Influenza A (Rapid) Influenza B (Rapid) 06/11/19 06/11/19 15:40 18:05 WBC RBC Hgb Hct MCV MCH MCHC RDW Plt Count MPV Absolute Neuts (auto) Neutrophils % Lymphocytes % Monocytes % Eosinophils % Basophils % Nucleated RBC % PT with INR INR PTT (Actin FS) Puncture Site No Result Required. ABG pH 7.41 ABG pCO2 at Pt Temp 55.0 H ABG pO2 at Pt Temp 61.0 L ABG HCO3 34.2 H ABG O2 Sat (Measured) 90.0 L ABG O2 Content 18.8 ABG Base Excess 7.9 H [place] Test No Result Required. Carboxyhemoglobin 3.6 H Methemoglobin < 1.0 Oxygen Flow Rate No Result Required. Sodium Potassium Chloride Carbon Dioxide Anion Gap BUN Creatinine Est GFR (CKD-EPI)AfAm Est GFR (CKD-EPI)NonAf Random Glucose Lactic Acid Calcium Phosphorus Magnesium Total Bilirubin AST ALT Alkaline Phosphatase Creatine Kinase CK-MB (CK-2) Troponin I Total Protein Albumin Urine Color Urine Appearance Urine pH Ur Specific [place] Urine Protein Urine Glucose (UA) Urine Ketones Urine Blood Urine Nitrite Urine Bilirubin Urine Urobilinogen Ur Leukocyte Esterase Opiates Screen Methadone Screen Barbiturate Screen Phencyclidine Screen Ur Amphetamines Screen MDMA (Ecstasy) Screen Benzodiazepines Screen Cocaine Screen U Marijuana (THC) Screen Alcohol, Quantitative Influenza A (Rapid) Negative Influenza B (Rapid) Negative Active Medications Generic Name Dose Route Start Last Admin Trade Name Freq PRN Reason Stop Dose Admin Chlorhexidine Gluconate 1 applic 06/11/19 22:00 Hibiclens For Decolonization - TP HS CEZAR Nitroglycerin/Dextrose 25 mg in 250 mls @ 6 mls/hr 06/11/19 17:30 06/11/19 18:28 Nitroglycerin 25mg/D5w 250ml IVPB 100 mcg/min TITR CEZAR 60 mls/hr Titration 10 MCG/MIN Insulin Aspart 1 vial 06/11/19 22:00 Novolog Vial Sliding Scale - SQ ACHS [facility] Protocol Mupirocin 1 applic 06/11/19 22:00 Bactroban Ointment (For Decolonization) - NS 06/16/19 21:59 BID [facility] ASSESSMENT/PLAN: patient is 58 year old female with a PMH of COPD, Tobacco use, ?CHF, DDM, HLD, HTN (not on medications) and Polysubstance abuse (heroin, cocaine,and alcohol) presents to the ED from [facility] with altered mental status found to have hypoxic hypercapneic respiratory failure and a prolonged qtc #Neuro patient currently somnolent; yet arousable protecting airway -neuro checks -if patient becomes more lethargic may have to intubate if not protecting airway -head CT ordered #Endo history of DM; -ISS -BGMS ACHS #Cardio ? history of CHF, HTN, HLD -presented to the ED with hypertensive emergency -started on nitro gtt -prolonged qtc; will monitor for torsades -electrolytes wnl -f/u EKG and trpos -echo ordered -received 1 dose of IV 40 lasix #ID patient was initially febrile upon arrival to 101 -lactic acid normal; no WBC -f/u blood/urine/sputum cx -will monitor off abx for now #Psych polysubstance abuse- utox positive for cocaine and methadone -received narcan and methadone -not currently in alcohol withdrawal -holding methadone in light of prolonged qtc -will monitor for signs of withdrawal -ativan PRN if needed #Pulm history of COPD; active smoker -ABG showed PH 7.4 with Pco2 55 -currently saturating well on nasal cannula -if change in mental status will repeat ABG assess need for intubation F/E/N not on fluids monitor electrolytes NPO until speech and swallow eval dvt ppx:lovenox sq Dispo: We will continue to follow the patient. Thank you for this consultative opportunity. Problem List - Problems (1) Alcohol dependence with withdrawal Code(s): F10.239 - ALCOHOL DEPENDENCE WITH WITHDRAWAL, UNSPECIFIED Qualifiers: Complication of substance-induced condition: with delirium Qualified Code(s): F10.231 - Alcohol dependence with withdrawal delirium (2) Diabetes Code(s): E11.9 - TYPE 2 DIABETES MELLITUS WITHOUT COMPLICATIONS (3) HTN (hypertension) Code(s): I10 - ESSENTIAL (PRIMARY) HYPERTENSION Qualifiers: Hypertension type: unspecified Qualified Code(s): I10 - Essential (primary) hypertension Visit type - Emergency Visit Emergency Visit: Yes ED Registration Date: 06/11/19 Care time: The patient presented to the Emergency Department on the above date and was hospitalized for further evaluation of their emergent condition. - New Patient This patient is new to me today: Yes Date on this admission: 06/11/19 - Critical Care Critical Care patient: Yes Total Critical Care Time (in minutes): 35 Critical Care Statement: The care of this patient involved high complexity decision making to prevent further life threatening deterioration of the patient's condition and/or to evaluate & treat vital organ system(s) failure or risk of failure. ATTENDING PHYSICIAN STATEMENT I saw and evaluated the patient. I reviewed the resident's note and discussed the case with the resident. I agree with the resident's findings and plan as documented. SUBJECTIVE: OBJECTIVE: ASSESSMENT AND PLAN:
[2019-06-11] MEDS: INSULIN SLIDING SCALE (NOVOLOG) 1 VIAL SQ SCH (22:35)
[2019-06-11 23:21] LABS: BLOOD UREA NITROGEN 11.7 mg/dL (7-18); CALCIUM 9.1 mg/dL (8.5-10.1); CREATININE 0.7 mg/dL (0.55-1.3); MAGNESIUM 2.1 mg/dL (1.8-2.4); PHOSPHOROUS 3.6 mg/dL (2.5-4.9); POTASSIUM 3.5 mmol/L (3.5-5.1)
[2019-06-12] MEDS: ENOXAPARIN NA (PORCINE) 40 MG/0.4 ML DISP.SYRIN SQ SCH ×2 (01:08→09:52)
[2019-06-12] MEDS ORDERED: POTASSIUM PHOSPHATE 15 MM in SODIUM CHLORIDE 250 ML IVPB ONE (02:00)
[2019-06-12] MEDS: NITROGLYCERIN 25MG/D5W 250ML 25 MG/250 ML ML IVPB SCH ×3 (03:19→09:51)
[2019-06-12] MEDS: MUPIROCIN 2% TOPICAL OINTMENT FOR DECOLONIZATION NS SCH ×3 (03:25→21:49)
[2019-06-12] MEDS: CHLORHEXIDINE GLUCONATE 4% CLEANSER FOR DECOLONIZATION TP SCH ×2 (03:25→21:49)
[2019-06-12] MEDS: INSULIN SLIDING SCALE (NOVOLOG) 1 VIAL SQ SCH ×4 (06:03→21:56)
[2019-06-12 06:45] LABS: BASO % 0.5 % (0-2.0); HEMATOCRIT 43.3 % (32.4-45.2); HEMOGLOBIN 14.2 GM/dL (10.7-15.3); LYMPH % 19.4 % (8-40); MCH 29.1 pg (25.7-33.7); MCHC 32.9 g/dl (32.0-36.0); MEAN CELL VOLUME 88.3 fl (80-96); MEAN PLT VOLUME 8.5 fl (7.5-11.1); MONO % 10.1 % (3.8-10.2); PLATELET COUNT 351 K/MM3 (134-434); RDW 18.3 % (11.6-15.6)
[2019-06-12 07:53] LABS: ALBUMIN 2.9 g/dl (3.4-5.0); BILIRUBIN,TOTAL 1.1 mg/dL (0.2-1); BLOOD UREA NITROGEN 11.6 mg/dL (7-18); CALCIUM 8.6 mg/dL (8.5-10.1); CREATININE 0.7 mg/dL (0.55-1.3); MAGNESIUM 1.9 mg/dL (1.8-2.4); PHOSPHOROUS 3.3 mg/dL (2.5-4.9); POTASSIUM 3.6 mmol/L (3.5-5.1); TOT PROT 5.7 g/dl (6.4-8.2)
--- NOTE | 2019-06-12 08:16 | PN ---
Teaching Attending Note Name of Resident: Angeles Dalton ATTENDING PHYSICIAN STATEMENT I saw and evaluated the patient. I reviewed the resident's note and discussed the case with the resident. I agree with the resident's findings and plan as documented. SUBJECTIVE: Patient is a 58yof homeless with a PMHx of COPD, Tobacco use, NIDDM, HLD, HTN ( noncompliant) and Polysubstance abuse (heroin, alcohol), Alcohol withdrawal with delirium tremens, Seizures and hallucinations, Opiod overdose and withdrawal taking methadone and also took heroin this morning who presents from [facility] confused and altered s/p Naloxone. patient was brought to ED. and was found to have Oxygen saturation of 72% with a rectal temperature of 101 and elevated BP of 198/100. As per notes patient was found lethargic and stuporous, and responded only to sternal rub and most noxious stimuli. OBJECTIVE: Initial Vital Signs Temp Pulse Resp BP Pulse Ox 98.6 F 88 28 H 196/72 H 92 L 06/11/19 14:31 06/11/19 14:31 06/11/19 14:31 06/11/19 14:31 06/11/19 14:31 Vital Signs Temperature 98.1 F 06/12/19 08:00 Pulse Rate 69 06/12/19 08:00 Respiratory Rate 14 06/12/19 08:00 Blood Pressure 143/76 06/12/19 08:00 O2 Sat by Pulse Oximetry (%) 96 06/11/19 22:35 GENERAL: The patient is awake, alert, and fully oriented, in no acute distress. HEAD: Normal with no signs of trauma. EYES: PERRL, extraocular movements intact, sclera anicteric, conjunctiva clear. ENT: Ears normal, nares patent, oropharynx clear without exudates, moist mucous membranes. NECK: Trachea midline, full range of motion, supple. LUNGS: Breath sounds equal, clear to auscultation bilaterally, no wheezes, no crackles, no accessory muscle use. HEART: Regular rate and rhythm, S1, S2+, S3 gallop ABDOMEN: Soft, nontender, nondistended, normoactive bowel sounds, no guarding, no rebound, no hepatosplenomegaly, no masses. EXTREMITIES: 2+ pulses, warm, well-perfused, no edema. NEUROLOGICAL: Cranial nerves II through XII grossly intact. Normal speech, gait not observed. PSYCH: Normal mood, normal affect. SKIN: Warm, dry, normal turgor, no rashes or lesions noted CBCD WBC 7.0 K/mm3 (4.0-10.0) 06/12/19 05:18 RBC 4.90 M/mm3 (3.60-5.2) 06/12/19 05:18 Hgb 14.2 GM/dL (10.7-15.3) 06/12/19 05:18 Hct 43.3 % (32.4-45.2) 06/12/19 05:18 MCV 88.3 fl (80-96) 06/12/19 05:18 MCHC 32.9 g/dl (32.0-36.0) 06/12/19 05:18 RDW 18.3 % (11.6-15.6) H 06/12/19 05:18 Plt Count 351 K/MM3 (134-434) 06/12/19 05:18 MPV 8.5 fl (7.5-11.1) 06/12/19 05:18 CMP Sodium 139 mmol/L (136-145) 06/12/19 05:18 Potassium 3.6 mmol/L (3.5-5.1) 06/12/19 05:18 Chloride 97 mmol/L (98-107) L 06/12/19 05:18 Carbon Dioxide 36 mmol/L (21-32) H 06/12/19 05:18 Anion Gap 7 MMOL/L (8-16) L 06/12/19 05:18 BUN 11.6 mg/dL (7-18) 06/12/19 05:18 Creatinine 0.7 mg/dL (0.55-1.3) 06/12/19 05:18 Random Glucose 109 mg/dL (74-106) H 06/12/19 05:18 Calcium 8.6 mg/dL (8.5-10.1) 06/12/19 05:18 Total Bilirubin 1.1 mg/dL (0.2-1) H 06/12/19 05:18 AST 36 U/L (15-37) 06/12/19 05:18 ALT 48 U/L (13-61) 06/12/19 05:18 Alkaline Phosphatase 107 U/L (45-117) 06/12/19 05:18 Total Protein 5.7 g/dl (6.4-8.2) L 06/12/19 05:18 Albumin 2.9 g/dl (3.4-5.0) L 06/12/19 05:18 CARDIAC ENZYMES Creatine Kinase 85 U/L (26-192) 06/11/19 22:30 Troponin I 0.07 ng/ml (0.00-0.05) H 06/12/19 05:18 Current Medications Generic Name Dose Route Start Last Admin Trade Name Noris PRN Reason Stop Dose Admin Chlorhexidine Gluconate 1 applic 06/11/19 22:00 06/12/19 03:25 Hibiclens For Decolonization - TP Not Given [facility] Enoxaparin Sodium 40 mg 06/12/19 00:28 Lovenox - SQ DAILY [facility] Nitroglycerin/Dextrose 25 mg in 250 mls @ 6 mls/hr 06/11/19 17:30 06/12/19 03 :23 Nitroglycerin 25mg/D5w 250ml IVPB 80 mcg/min TITR CEZAR 48 mls/hr Titration 10 MCG/MIN Insulin Aspart 1 vial 06/11/19 22:00 06/12/19 06:03 Novolog Vial Sliding Scale - SQ Not Given ACHS [facility] Protocol Mupirocin 1 applic 06/11/19 22:00 06/12/19 03:25 Bactroban Ointment (For Decolonization) - NS 06/16/19 21:59 Not Given BID [facility] Home Medications Medication Instructions Recorded Fluticasone/Salmeterol [Advair 1 each IH DAILY #1 blst.w.dev 08/23/18 250-50 Diskus] Atorvastatin Calcium 40 mg PO HS 06/10/19 Carvedilol [Coreg -] 6.25 mg PO BID 06/10/19 Fluticasone/Salmeterol [Advair Hfa 1 inh PO BID 06/10/19 230-21 Mcg Inhaler] Lisinopril 10 mg PO DAILY 06/10/19 Metformin HCl [Glucophage] 500 mg PO DAILY 06/10/19 Metoprolol Succinate [Toprol Xl -] 50 mg PO DAILY 06/10/19 Montelukast Na [Singulair -] 10 mg PO HS 06/10/19 Tiotropium [place] [Spiriva] 18 mcg IH DAILY 06/10/19 predniSONE [Deltasone -] 40 mg PO DAILY 06/10/19 Laboratory Tests 06/11/19 06/11/19 06/11/19 15:30 22:30 22:30 Troponin I 0.08 H 0.08 H Methadone Screen Positive A* Cocaine Screen Positive A* 06/12/19 05:18 Troponin I 0.07 H Methadone Screen Cocaine Screen CXR shows cardiomegaly with pulmonary vascular congestion and fluid in the fissures. EKG : nSR rate of 50, with QTc of 439 with LAE and inferolateral T wave inversion. US of abdomen: normal ASSESSMENT AND PLAN: Patient is a 58 yof homeless with a PMHx of COPD, Tobacco use, NIDDM, HLD, HTN (noncompliant) and Polysubstance abuse (heroin, alcohol), presented with Alcohol withdrawal with delirium tremens, Seizures and hallucinations, Opiod overdose and withdrawal taking methadone and heroin that used it in this morning who presents from [facility] confused and altered. # Acute Drug overdose and alcohol intoxication : presneted with acute change of mental status: in ICu improving # Acute Hypercapnic and hypoxic respiratory failure: per ICU team # Hypertensive emergency: NTG drip, echo continue # Acute D.HF with 3/6 Holosystolic murmur present, Echo in the AM # T2DM with SS with coverage # Alcohol/Polysubstance abuse: on librium protocol # Tobacco Use :smoking cessation and Nicotine patch. # Prolonged QTc presneted with Qtc 605 now 433 s/p Mag 2 grams IV given # Acute Transaminits trend DVT prophylaxis - Lovenox 40 mg
--- NOTE | 2019-06-12 10:26 | PN ---
Physical Exam: SUBJECTIVE: Patient seen and examined NAEON Denies pain OBJECTIVE: Vital Signs Period Temp Pulse Resp BP Sys/Reich Pulse Ox Last 24 Hr 98.1 F-101.1 F 68-94 13-28 119-203/52-92 92-100 GENERAL: lethargic EYES: no scleral icterus NECK: no JVD; no lymphadenopathy LUNGS: mildly diminished breath sounds at the bases; no rales/rhonchi or wheezing. HEART: RRR s1 s2; 3/6 holosystolic murmur. ABDOMEN: soft; NT/ND +BS in all 4 quadrants MUSCULOSKELETAL: Normal range of motion at all joints. No bony deformities or tenderness. No CVA tenderness. EXTREMITIES: warm; well-perfused no clubbing/cyanosis or edema NEUROLOGICAL: lethargic; oriented to name, year, president PSYCHIATRIC: Cooperative. SKIN: Warm, dry, normal turgor, no rashes or lesions noted. Laboratory Results - last 24 hr 06/11/19 06/11/19 06/11/19 15:02 15:02 15:02 WBC 9.2 RBC 5.48 H Hgb 16.1 H Hct 49.8 H MCV 90.9 MCH 29.3 MCHC 32.2 RDW 18.2 H Plt Count 376 MPV 9.0 Absolute Neuts (auto) 8.0 Neutrophils % 87.6 H Lymphocytes % 8.3 Monocytes % 3.0 L Eosinophils % 0.1 Basophils % 1.0 Nucleated RBC % 0 PT with INR INR PTT (Actin FS) Puncture Site ABG pH ABG pCO2 at Pt Temp ABG pO2 at Pt Temp ABG HCO3 ABG O2 Sat (Measured) ABG O2 Content ABG Base Excess [place] Test Carboxyhemoglobin Methemoglobin Oxygen Flow Rate Sodium 142 Potassium 4.1 Chloride 104 Carbon Dioxide 33 H Anion Gap 5 L BUN 13.6 Creatinine 0.8 Est GFR (CKD-EPI)AfAm 92.87 Est GFR (CKD-EPI)NonAf 80.13 POC Glucometer Random Glucose 117 H Lactic Acid 1.4 Calcium 8.9 Phosphorus 2.3 L Magnesium 1.9 Total Bilirubin 0.9 AST 71 H ALT 75 H Alkaline Phosphatase 144 H Creatine Kinase 124 CK-MB (CK-2) 3.3 Troponin I 0.05 Total Protein 7.1 Albumin 3.5 Urine Color Urine Appearance Urine pH Ur Specific [place] Urine Protein Urine Glucose (UA) Urine Ketones Urine Blood Urine Nitrite Urine Bilirubin Urine Urobilinogen Ur Leukocyte Esterase Salicylates Opiates Screen Methadone Screen Barbiturate Screen Phencyclidine Screen Ur Amphetamines Screen MDMA (Ecstasy) Screen Benzodiazepines Screen Cocaine Screen U Marijuana (THC) Screen Alcohol, Quantitative < 3 Influenza A (Rapid) Influenza B (Rapid) 06/11/19 06/11/19 06/11/19 15:02 15:30 15:30 WBC RBC Hgb Hct MCV MCH MCHC RDW Plt Count MPV Absolute Neuts (auto) Neutrophils % Lymphocytes % Monocytes % Eosinophils % Basophils % Nucleated RBC % PT with INR 13.90 H INR 1.18 H PTT (Actin FS) 32.1 Puncture Site ABG pH ABG pCO2 at Pt Temp ABG pO2 at Pt Temp ABG HCO3 ABG O2 Sat (Measured) ABG O2 Content ABG Base Excess [place] Test Carboxyhemoglobin Methemoglobin Oxygen Flow Rate Sodium Potassium Chloride Carbon Dioxide Anion Gap BUN Creatinine Est GFR (CKD-EPI)AfAm Est GFR (CKD-EPI)NonAf POC Glucometer Random Glucose Lactic Acid Calcium Phosphorus Magnesium Total Bilirubin AST ALT Alkaline Phosphatase Creatine Kinase CK-MB (CK-2) Troponin I Total Protein Albumin Urine Color Yellow Urine Appearance Clear Urine pH 7.5 D Ur Specific [place] 1.007 L Urine Protein Negative Urine Glucose (UA) Negative Urine Ketones Negative Urine Blood Negative Urine Nitrite Negative Urine Bilirubin Negative Urine Urobilinogen 0.2 Ur Leukocyte Esterase Negative Salicylates Opiates Screen Negative Methadone Screen Positive A* Barbiturate Screen Negative Phencyclidine Screen Negative Ur Amphetamines Screen Negative MDMA (Ecstasy) Screen Negative Benzodiazepines Screen Negative Cocaine Screen Positive A* U Marijuana (THC) Screen Negative Alcohol, Quantitative Influenza A (Rapid) Influenza B (Rapid) 06/11/19 06/11/19 06/11/19 15:40 18:05 20:30 WBC RBC Hgb Hct MCV MCH MCHC RDW Plt Count MPV Absolute Neuts (auto) Neutrophils % Lymphocytes % Monocytes % Eosinophils % Basophils % Nucleated RBC % PT with INR INR PTT (Actin FS) Puncture Site No Result Required. ABG pH 7.41 ABG pCO2 at Pt Temp 55.0 H ABG pO2 at Pt Temp 61.0 L ABG HCO3 34.2 H ABG O2 Sat (Measured) 90.0 L ABG O2 Content 18.8 ABG Base Excess 7.9 H [place] Test No Result Required. Carboxyhemoglobin 3.6 H Methemoglobin < 1.0 Oxygen Flow Rate No Result Required. Sodium Potassium Chloride Carbon Dioxide Anion Gap BUN Creatinine Est GFR (CKD-EPI)AfAm Est GFR (CKD-EPI)NonAf POC Glucometer Random Glucose Lactic Acid 1.1 Calcium Phosphorus Magnesium Total Bilirubin AST ALT Alkaline Phosphatase Creatine Kinase CK-MB (CK-2) Troponin I Total Protein Albumin Urine Color Urine Appearance Urine pH Ur Specific [place] Urine Protein Urine Glucose (UA) Urine Ketones Urine Blood Urine Nitrite Urine Bilirubin Urine Urobilinogen Ur Leukocyte Esterase Salicylates Opiates Screen Methadone Screen Barbiturate Screen Phencyclidine Screen Ur Amphetamines Screen MDMA (Ecstasy) Screen Benzodiazepines Screen Cocaine Screen U Marijuana (THC) Screen Alcohol, Quantitative Influenza A (Rapid) Negative Influenza B (Rapid) Negative 06/11/19 06/11/19 06/11/19 22:09 22:30 22:30 WBC RBC Hgb Hct MCV MCH MCHC RDW Plt Count MPV Absolute Neuts (auto) Neutrophils % Lymphocytes % Monocytes % Eosinophils % Basophils % Nucleated RBC % PT with INR INR PTT (Actin FS) Puncture Site ABG pH ABG pCO2 at Pt Temp ABG pO2 at Pt Temp ABG HCO3 ABG O2 Sat (Measured) ABG O2 Content ABG Base Excess [place] Test Carboxyhemoglobin Methemoglobin Oxygen Flow Rate Sodium Potassium Chloride Carbon Dioxide Anion Gap BUN Creatinine Est GFR (CKD-EPI)AfAm Est GFR (CKD-EPI)NonAf POC Glucometer 178 Random Glucose Lactic Acid Calcium Phosphorus Magnesium Total Bilirubin AST ALT Alkaline Phosphatase Creatine Kinase CK-MB (CK-2) Troponin I 0.08 H Total Protein Albumin Urine Color Urine Appearance Urine pH Ur Specific [place] Urine Protein Urine Glucose (UA) Urine Ketones Urine Blood Urine Nitrite Urine Bilirubin Urine Urobilinogen Ur Leukocyte Esterase Salicylates < 1.7 L Opiates Screen Methadone Screen Barbiturate Screen Phencyclidine Screen Ur Amphetamines Screen MDMA (Ecstasy) Screen Benzodiazepines Screen Cocaine Screen U Marijuana (THC) Screen Alcohol, Quantitative Influenza A (Rapid) Influenza B (Rapid) 06/11/19 06/12/19 06/12/19 22:30 05:18 05:18 WBC 7.0 RBC 4.90 Hgb 14.2 Hct 43.3 MCV 88.3 MCH 29.1 MCHC 32.9 RDW 18.3 H Plt Count 351 MPV 8.5 Absolute Neuts (auto) 4.9 Neutrophils % 70.0 D Lymphocytes % 19.4 D Monocytes % 10.1 D Eosinophils % 0.0 D Basophils % 0.5 Nucleated RBC % 0 PT with INR INR PTT (Actin FS) Puncture Site ABG pH ABG pCO2 at Pt Temp ABG pO2 at Pt Temp ABG HCO3 ABG O2 Sat (Measured) ABG O2 Content ABG Base Excess [place] Test Carboxyhemoglobin Methemoglobin Oxygen Flow Rate Sodium 138 139 Potassium 3.5 3.6 Chloride 97 L 97 L Carbon Dioxide 35 H 36 H Anion Gap 7 L 7 L BUN 11.7 11.6 Creatinine 0.7 0.7 Est GFR (CKD-EPI)AfAm 109.15 109.15 Est GFR (CKD-EPI)NonAf 94.17 94.17 POC Glucometer Random Glucose 165 H 109 H Lactic Acid Calcium 9.1 8.6 Phosphorus 3.6 3.3 Magnesium 2.1 1.9 Total Bilirubin 1.1 H AST 36 ALT 48 Alkaline Phosphatase 107 Creatine Kinase 85 CK-MB (CK-2) 2.7 Troponin I 0.08 H Total Protein 5.7 L Albumin 2.9 L Urine Color Urine Appearance Urine pH Ur Specific [place] Urine Protein Urine Glucose (UA) Urine Ketones Urine Blood Urine Nitrite Urine Bilirubin Urine Urobilinogen Ur Leukocyte Esterase Salicylates Opiates Screen Methadone Screen Barbiturate Screen Phencyclidine Screen Ur Amphetamines Screen MDMA (Ecstasy) Screen Benzodiazepines Screen Cocaine Screen U Marijuana (THC) Screen Alcohol, Quantitative Influenza A (Rapid) Influenza B (Rapid) 06/12/19 06/12/19 05:18 06:00 WBC RBC Hgb Hct MCV MCH MCHC RDW Plt Count MPV Absolute Neuts (auto) Neutrophils % Lymphocytes % Monocytes % Eosinophils % Basophils % Nucleated RBC % PT with INR INR PTT (Actin FS) Puncture Site ABG pH ABG pCO2 at Pt Temp ABG pO2 at Pt Temp ABG HCO3 ABG O2 Sat (Measured) ABG O2 Content ABG Base Excess [place] Test Carboxyhemoglobin Methemoglobin Oxygen Flow Rate Sodium Potassium Chloride Carbon Dioxide Anion Gap BUN Creatinine Est GFR (CKD-EPI)AfAm Est GFR (CKD-EPI)NonAf POC Glucometer 111 Random Glucose Lactic Acid Calcium Phosphorus Magnesium Total Bilirubin AST ALT Alkaline Phosphatase Creatine Kinase CK-MB (CK-2) Troponin I 0.07 H Total Protein Albumin Urine Color Urine Appearance Urine pH Ur Specific [place] Urine Protein Urine Glucose (UA) Urine Ketones Urine Blood Urine Nitrite Urine Bilirubin Urine Urobilinogen Ur Leukocyte Esterase Salicylates Opiates Screen Methadone Screen Barbiturate Screen Phencyclidine Screen Ur Amphetamines Screen MDMA (Ecstasy) Screen Benzodiazepines Screen Cocaine Screen U Marijuana (THC) Screen Alcohol, Quantitative Influenza A (Rapid) Influenza B (Rapid) Active Medications Generic Name Dose Route Start Last Admin Trade Name Freq PRN Reason Stop Dose Admin Chlorhexidine Gluconate 1 applic 06/11/19 22:00 06/12/19 03:25 Hibiclens For Decolonization - TP Not Given HS CEZAR Enoxaparin Sodium 40 mg 06/12/19 00:28 06/12/19 09:52 Lovenox - SQ 40 mg DAILY CEZAR Administration Nitroglycerin/Dextrose 25 mg in 250 mls @ 6 mls/hr 06/11/19 17:30 06/12/19 09 :51 Nitroglycerin 25mg/D5w 250ml IVPB 60 mcg/min TITR CEZAR 36 mls/hr Administration 10 MCG/MIN Insulin Aspart 1 vial 06/11/19 22:00 06/12/19 06:03 Novolog Vial Sliding Scale - SQ Not Given ACHS [facility] Protocol Magnesium Chloride 128 mg 06/12/19 10:25 Slow-Mag - PO 06/12/19 10:26 ONCE ONE Mupirocin 1 applic 06/11/19 22:00 06/12/19 10:17 Bactroban Ointment (For Decolonization) - NS 06/16/19 21:59 1 applic BID CEZAR Administration Potassium Chloride 40 meq 06/12/19 10:24 K-Dur - PO 06/12/19 10:25 ONCE ONE ASSESSMENT/PLAN: 58 year old female with a PMH of COPD, Tobacco use, ?CHF, DDM, HLD, HTN (not on medications) and Polysubstance abuse (heroin, cocaine,and alcohol) presents to the ED from [facility] with altered mental status found to have hypoxic hypercapneic respiratory failure and a prolonged qtc #Neuro patient currently somnolent; yet arousable protecting airway -neuro checks > head CT: neg for acute path. Hypodense changes in supratentorial deep hemispheric, subcortical white matter -- unknown if acute vs subacute infarct vs demyelinating disease - Neuro([place]) consulted: --no further w/u for CTH findings #Endo history of DM; -ISS -BGMS ACHS #Cardio - HFpEF - mild-mod - prolonged QTc > EKG(06/11/19): LVH, QTc 605 > EKG(06/12/19): LVH, QTc 580 > Troponin: 0.05, 0.08, 0.08, 0.07 > Echo(06/12/19): LVEF 70%, mod LVH, mild-mod -presented to the ED with hypertensive emergency -weaning off nitro gtt -prolonged qtc; will monitor for torsades -received 1 dose of IV 40 lasix -Cardio([facility]) consult: for CHF history --restart lisinopril and coreg #ID patient was initially febrile upon arrival to 101, but no leukocytosis -lactic acid normal; no WBC -f/u blood/urine/sputum cx -will monitor off abx for now #Psych polysubstance abuse- utox positive for cocaine and methadone -received narcan and methadone -not currently in alcohol withdrawal -holding methadone in light of prolonged qtc -will monitor for signs of withdrawal -ativan PRN if needed #Pulm history of COPD; active smoker -ABG showed PH 7.4 with Pco2 55 -currently saturating well on nasal cannula -if change in mental status will repeat ABG assess need for intubation F/E/N not on fluids monitor electrolytes regular diet dvt ppx:lovenox sq Dispo: We will continue to follow the patient. Thank you for this consultative opportunity. Visit type - Emergency Visit Emergency Visit: No - New Patient This patient is new to me today: Yes Date on this admission: 06/12/19 - Critical Care Critical Care patient: Yes Total Critical Care Time (in minutes): 36 Critical Care Statement: The care of this patient involved high complexity decision making to prevent further life threatening deterioration of the patient 's condition and/or to evaluate & treat vital organ system(s) failure or risk of failure. ATTENDING PHYSICIAN STATEMENT I saw and evaluated the patient. I reviewed the resident's note and discussed the case with the resident. I agree with the resident's findings and plan as documented. SUBJECTIVE: OBJECTIVE: ASSESSMENT AND PLAN:
[2019-06-12] MEDS ORDERED: POTASSIUM CHLORIDE TABS 20 MEQ TABLET.ER (FP) PO ONE (10:45)
[2019-06-12] MEDS ORDERED: MAGNESIUM CL 64 MG TABLET.SA PO ONE (11:00)
--- NOTE | 2019-06-12 11:51 | EKG ---
Test Reason : Blood Pressure : / mmHG Vent. Rate : 069 BPM Atrial Rate : 069 BPM P-R Int : 130 ms QRS Dur : 082 ms QT Int : 542 ms P-R-T Axes : 083 081 083 degrees QTc Int : 580 ms NORMAL SINUS RHYTHM POSSIBLE LEFT ATRIAL ENLARGEMENT LEFT VENTRICULAR HYPERTROPHY PROLONGED QT ABNORMAL ECG WHEN COMPARED WITH ECG OF 11-JUN-2019 21:11, PREMATURE ATRIAL COMPLEXES ARE NO LONGER PRESENT T WAVE INVERSION NO LONGER EVIDENT IN LATERAL LEADS Confirmed by JHONY SAMUELS MD ([id number]) on 06/12/2019 11:51:14 AM Referred By: Confirmed By:JHONY SAMUELS MD
--- NOTE | 2019-06-12 11:53 | EKG ---
Test Reason : Blood Pressure : / mmHG Vent. Rate : 086 BPM Atrial Rate : 086 BPM P-R Int : 132 ms QRS Dur : 082 ms QT Int : 506 ms P-R-T Axes : 068 055 067 degrees QTc Int : 605 ms SINUS RHYTHM WITH PREMATURE ATRIAL COMPLEXES BIATRIAL ENLARGEMENT LEFT VENTRICULAR HYPERTROPHY WITH REPOLARIZATION ABNORMALITY PROLONGED QT ABNORMAL ECG WHEN COMPARED WITH ECG OF 11-JUN-2019 16:45, PREMATURE ATRIAL COMPLEXES ARE NOW PRESENT Confirmed by JHONY SAMUELS MD ([id number]) on 06/12/2019 11:53:20 AM Referred By: Confirmed By:JHONY SAMUELS MD
--- NOTE | 2019-06-12 11:54 | EKG ---
Test Reason : Blood Pressure : / mmHG Vent. Rate : 081 BPM Atrial Rate : 081 BPM P-R Int : 134 ms QRS Dur : 084 ms QT Int : 492 ms P-R-T Axes : 066 066 089 degrees QTc Int : 571 ms NORMAL SINUS RHYTHM BIATRIAL ENLARGEMENT LEFT VENTRICULAR HYPERTROPHY T WAVE ABNORMALITY, CONSIDER LATERAL ISCHEMIA PROLONGED QT ABNORMAL ECG WHEN COMPARED WITH ECG OF 11-JUN-2019 14:36, T WAVE INVERSION NO LONGER EVIDENT IN INFERIOR LEADS T WAVE INVERSION NO LONGER EVIDENT IN ANTERIOR LEADS QT HAS LENGTHENED Confirmed by JHONY SAMUELS MD ([id number]) on 06/12/2019 11:54:20 AM Referred By: Confirmed By:JHONY SAMUELS MD
--- NOTE | 2019-06-12 11:55 | EKG ---
Test Reason : Blood Pressure : / mmHG Vent. Rate : 078 BPM Atrial Rate : 078 BPM P-R Int : 134 ms QRS Dur : 080 ms QT Int : 380 ms P-R-T Axes : 083 077 148 degrees QTc Int : 433 ms NORMAL SINUS RHYTHM LEFT ATRIAL ENLARGEMENT T WAVE ABNORMALITY, CONSIDER INFEROLATERAL ISCHEMIA ABNORMAL ECG WHEN COMPARED WITH ECG OF 10-JUN-2019 14:35, VENT. RATE HAS INCREASED BY 28 BPM Confirmed by JHONY SAMUELS MD ([id number]) on 06/12/2019 11:54:37 AM Referred By: Confirmed By:JHONY SAMUELS MD
--- NOTE | 2019-06-12 11:56 | CON.CARD ---
Consult Consult Specialty:: Cardiology Referred by:: Hospitalist Medicine Reason for Consultation:: Hypertensive urgency - History of Present Illness Chief Complaint: Altered mental status History of Present Illness: Patient is a 58yof homeless with a PMHx of COPD, Tobacco use, NIDDM, HLD, HTN ( noncompliant) and Polysubstance abuse (heroin, alcohol), Alcohol withdrawal with delirium tremens, Seizures and hallucinations, Opiod overdose and withdrawal taking methadone and also took heroin this morning who presented from [facility] confused and altered s/p Naloxone. patient was brought to ED. and was found to have Oxygen saturation of 72% with a rectal temperature of 101 and elevated BP of 198/100. As per notes patient was found lethargic and stuporous, and responded only to sternal rub and most noxious stimuli, still lethargic. - History Source History Provided By: Medical Record Limitations to Obtaining History: Clinical Condition - Past Medical History Cardio/Vascular: Yes: CHF, HTN, Hyperlipdemia Endocrine: Yes: Diabetes Mellitus - Past Surgical History Past Surgical History: Yes: None - Alcohol/Substance Use Hx Alcohol Use: Yes Number of Drinks Daily: 2 History of Substance Use: reports: Cocaine, Heroin Date of Last Use: 06/09/19 - Smoking History Smoking history: Current every day smoker Have you smoked in the past 12 months: Yes Aproximately how many cigarettes per day: 3 - Social History ADL: Independent Occupation: unemployed homeless History of Recent Travel: No Home Medications - Allergies Allergies/Adverse Reactions: Allergies Allergy/AdvReac Type Severity Reaction Status Date / Time No Known Allergies Allergy Verified 08/20/18 18:23 - Home Medications Home Medications: Ambulatory Orders Fluticasone/Salmeterol [Advair 250-50 Diskus] 1 each IH DAILY #1 blst.w.dev 02/01 Atorvastatin Calcium 40 mg PO HS 06/10/19 Carvedilol [Coreg -] 6.25 mg PO BID 06/10/19 Fluticasone/Salmeterol [Advair Hfa 230-21 Mcg Inhaler] 1 inh PO BID 06/10/19 Lisinopril 10 mg PO DAILY 06/10/19 Metformin HCl [Glucophage] 500 mg PO DAILY 06/10/19 Metoprolol Succinate [Toprol Xl -] 50 mg PO DAILY 06/10/19 Montelukast Na [Singulair -] 10 mg PO HS 06/10/19 Tiotropium [place] [Spiriva] 18 mcg IH DAILY 06/10/19 predniSONE [Deltasone -] 40 mg PO DAILY 06/10/19 Amlodipine Besylate [Norvasc -] 10 mg PO DAILY 06/12/19 Ipratropium/Albuterol Sulfate [Iprat-Albut 0.5-3(2.5) mg/3 ml] 3 ml Q4H Review of Systems Unable to obtain ROS, reason: Altered mental status Vital Signs: Vital Signs Temperature 98.1 F 06/12/19 10:00 Pulse Rate 70 06/12/19 10:00 Respiratory Rate 16 06/12/19 10:00 Blood Pressure 134/71 06/12/19 10:00 O2 Sat by Pulse Oximetry (%) 99 06/12/19 08:00 Constitutional: Yes: No Distress, Calm, Thin Neck: Yes: Supple Respiratory: Yes: Regular, CTA Bilaterally Gastrointestinal: Yes: Soft, Hypoactive Bowel Sounds Cardiovascular: Yes: Regular Rate and Rhythm JVD: No Carotid Bruit: No Heart Sounds: Yes: S1, S2 Edema: No - Other Data Labs, Other Data: CBC, BMP 06/12/19 05:18 06/12/19 05:18 INR, PTT INR 1.18 (0.83-1.09) H 06/11/19 15:02 Troponin, BNP 06/11/19 06/11/19 06/11/19 15:02 22:30 22:30 Troponin I 0.05 0.08 H 0.08 H 06/12/19 05:18 Troponin I 0.07 H Troponin, BNP 06/11/19 06/11/19 06/11/19 15:02 22:30 22:30 Troponin I 0.05 0.08 H 0.08 H 06/12/19 05:18 Troponin I 0.07 H NSR @ 69 LAE, LVH Ejection Fraction %: LVEF > or = 40 % Imaging - Results Chest X-ray: Report Reviewed (Decreased congestion) Cat Scan: Report Reviewed (HCT No acute changes) EKG: Report Reviewed (NSR @ 69 LAE, LVH) Problem List - Problems (1) Hypertensive urgency Code(s): I16.0 - HYPERTENSIVE URGENCY (2) Demand ischemia Code(s): I24.8 - OTHER FORMS OF ACUTE ISCHEMIC HEART DISEASE (3) Alcohol dependence with withdrawal Code(s): F10.239 - ALCOHOL DEPENDENCE WITH WITHDRAWAL, UNSPECIFIED Qualifiers: Complication of substance-induced condition: with delirium Qualified Code(s ): F10.231 - Alcohol dependence with withdrawal delirium (4) COPD (chronic obstructive pulmonary disease) Code(s): J44.9 - CHRONIC OBSTRUCTIVE PULMONARY DISEASE, UNSPECIFIED Qualifiers: COPD type: unspecified COPD Qualified Code(s): J44.9 - Chronic obstructive pulmonary disease, unspecified (5) Diabetes Code(s): E11.9 - TYPE 2 DIABETES MELLITUS WITHOUT COMPLICATIONS Qualifiers: Diabetes mellitus type: type 2 (6) Hyperlipidemia Code(s): E78.5 - HYPERLIPIDEMIA, UNSPECIFIED Qualifiers: Hyperlipidemia type: pure hypercholesterolemia Qualified Code(s): E78.00 - Pure hypercholesterolemia, unspecified; E78.0 - Pure hypercholesterolemia (7) Opioid use disorder Code(s): F11.99 - OPIOID USE, UNSP WITH UNSPECIFIED OPIOID-INDUCED DISORDER (8) Diastolic dysfunction Code(s): I51.89 - OTHER ILL-DEFINED HEART DISEASES Assessment/Plan 06/12/2019 Echo: Mod cLVH, hyperdynamic LVEF>70%, normal RV size and fxn, tr TR , mild-mod CXR shows cardiomegaly with pulmonary vascular congestion and fluid in the fissures. US of abdomen: normal 1. Acute hypercapneic and hypoxic respiratory failure 2. Acute drug overdose 3. Hypertensive urgency with encephelopathy 4. Diastolic dysfunction 5. Type 2 DM 6. Polysubstance abuse (heroin, cocaine,and alcohol) 7. Hyperlipidemia 8. COPD, tobacco abuse P:1. Resume carvedilol 6.25 bid, lisinoprol 10 qd wean off NTG gtt as hemodynamics tolerate once taking oral intake 2. Librium detox, DVT prophylaxis 3. Thank you for consultative opportunity
--- NOTE | 2019-06-12 12:07 | PN ---
Teaching Attending Note Name of Resident: Dawood Garcia ATTENDING PHYSICIAN STATEMENT I saw and evaluated the patient. I reviewed the resident's note and discussed the case with the resident. I agree with the resident's findings and plan as documented. SUBJECTIVE: Patient seen and examined in the ICU. Awake and alert but mildly confused. Remains on IV NTG. Denies CP or SOB. Wants to eat. Intake & Output 06/09/19 06/10/19 06/11/19 06/12/19 23:59 23:59 23:59 23:59 Intake Total 250 Output Total 200 300 Balance -200 -50 Weight 168 lb 6 oz 168 lb 6 oz Last Vital Signs Temp Pulse Resp BP Pulse Ox 98.0 F 69 16 118/69 99 06/12/19 12:00 06/12/19 12:00 06/12/19 12:00 06/12/19 12:00 06/12/19 08:00 Active Medications Chlorhexidine Gluconate (Hibiclens For Decolonization -) 1 applic TP HS [facility] Last Admin: 06/12/19 03:25 Dose: Not Given Enoxaparin Sodium (Lovenox -) 40 mg SQ DAILY [facility] Last Admin: 06/12/19 09:52 Dose: 40 mg Nitroglycerin/Dextrose (Nitroglycerin 25mg/D5w 250ml) 25 mg in 250 mls @ 6 mls/ hr IVPB TITR [facility] Last Admin: 06/12/19 09:51 Dose: 60 mcg/min, 36 mls/hr Insulin Aspart (Novolog Vial Sliding Scale -) 1 vial SQ ACHS [facility]; Protocol Last Admin: 06/12/19 10:34 Dose: 2 unit Mupirocin (Bactroban Ointment (For Decolonization) -) 1 applic NS BID [facility] Stop: 06/16/19 21:59 Last Admin: 06/12/19 10:17 Dose: 1 applic GENERAL: Awake and alert, NAD EYES:PEERLA; EOMI; no scleral icterus NECK: no JVD; no lymphadenopathy LUNGS:diminished breath sounds at the bases; no rales/rhonchi or wheezing. HEART: RRR s1 s2; 3/6 systolic murmur. ABDOMEN: soft; NT/ND +BS in all 4 quadrants MUSCULOSKELETAL: Normal range of motion at all joints. No bony deformities or tenderness. No CVA tenderness. EXTREMITIES: warm; well-perfused no clubbing/cyanosis or edema NEUROLOGICAL: Non-focal PSYCHIATRIC: Cooperative. SKIN: Warm, dry, normal turgor, no rashes or lesions noted. Laboratory Results - last 24 hr 06/11/19 06/11/19 06/11/19 05:18 15:02 15:02 WBC 9.2 RBC 5.48 H Hgb 16.1 H Hct 49.8 H MCV 90.9 MCH 29.3 MCHC 32.2 RDW 18.2 H Plt Count 376 MPV 9.0 Absolute Neuts (auto) 8.0 Neutrophils % 87.6 H Lymphocytes % 8.3 Monocytes % 3.0 L Eosinophils % 0.1 Basophils % 1.0 Nucleated RBC % 0 PT with INR INR PTT (Actin FS) Puncture Site ABG pH ABG pCO2 at Pt Temp ABG pO2 at Pt Temp ABG HCO3 ABG O2 Sat (Measured) ABG O2 Content ABG Base Excess [place] Test Carboxyhemoglobin Methemoglobin Oxygen Flow Rate Sodium 142 Potassium 4.1 Chloride 104 Carbon Dioxide 33 H Anion Gap 5 L BUN 13.6 Creatinine 0.8 Est GFR (CKD-EPI)AfAm 92.87 Est GFR (CKD-EPI)NonAf 80.13 POC Glucometer Random Glucose 117 H Hemoglobin A1c % 6.0 Lactic Acid Calcium 8.9 Phosphorus 2.3 L Magnesium 1.9 Total Bilirubin 0.9 AST 71 H ALT 75 H Alkaline Phosphatase 144 H Creatine Kinase 124 CK-MB (CK-2) 3.3 Troponin I 0.05 Total Protein 7.1 Albumin 3.5 Urine Color Urine Appearance Urine pH Ur Specific [place] Urine Protein Urine Glucose (UA) Urine Ketones Urine Blood Urine Nitrite Urine Bilirubin Urine Urobilinogen Ur Leukocyte Esterase Salicylates Opiates Screen Methadone Screen Acetaminophen Barbiturate Screen Phencyclidine Screen Ur Amphetamines Screen MDMA (Ecstasy) Screen Benzodiazepines Screen Cocaine Screen U Marijuana (THC) Screen Alcohol, Quantitative < 3 Influenza A (Rapid) Influenza B (Rapid) 06/11/19 06/11/19 06/11/19 15:02 15:02 15:30 WBC RBC Hgb Hct MCV MCH MCHC RDW Plt Count MPV Absolute Neuts (auto) Neutrophils % Lymphocytes % Monocytes % Eosinophils % Basophils % Nucleated RBC % PT with INR 13.90 H INR 1.18 H PTT (Actin FS) 32.1 Puncture Site ABG pH ABG pCO2 at Pt Temp ABG pO2 at Pt Temp ABG HCO3 ABG O2 Sat (Measured) ABG O2 Content ABG Base Excess [place] Test Carboxyhemoglobin Methemoglobin Oxygen Flow Rate Sodium Potassium Chloride Carbon Dioxide Anion Gap BUN Creatinine Est GFR (CKD-EPI)AfAm Est GFR (CKD-EPI)NonAf POC Glucometer Random Glucose Hemoglobin A1c % Lactic Acid 1.4 Calcium Phosphorus Magnesium Total Bilirubin AST ALT Alkaline Phosphatase Creatine Kinase CK-MB (CK-2) Troponin I Total Protein Albumin Urine Color Urine Appearance Urine pH Ur Specific [place] Urine Protein Urine Glucose (UA) Urine Ketones Urine Blood Urine Nitrite Urine Bilirubin Urine Urobilinogen Ur Leukocyte Esterase Salicylates Opiates Screen Negative Methadone Screen Positive A* Acetaminophen Barbiturate Screen Negative Phencyclidine Screen Negative Ur Amphetamines Screen Negative MDMA (Ecstasy) Screen Negative Benzodiazepines Screen Negative Cocaine Screen Positive A* U Marijuana (THC) Screen Negative Alcohol, Quantitative Influenza A (Rapid) Influenza B (Rapid) 06/11/19 06/11/19 06/11/19 15:30 15:40 18:05 WBC RBC Hgb Hct MCV MCH MCHC RDW Plt Count MPV Absolute Neuts (auto) Neutrophils % Lymphocytes % Monocytes % Eosinophils % Basophils % Nucleated RBC % PT with INR INR PTT (Actin FS) Puncture Site No Result Required. ABG pH 7.41 ABG pCO2 at Pt Temp 55.0 H ABG pO2 at Pt Temp 61.0 L ABG HCO3 34.2 H ABG O2 Sat (Measured) 90.0 L ABG O2 Content 18.8 ABG Base Excess 7.9 H [place] Test No Result Required. Carboxyhemoglobin 3.6 H Methemoglobin < 1.0 Oxygen Flow Rate No Result Required. Sodium Potassium Chloride Carbon Dioxide Anion Gap BUN Creatinine Est GFR (CKD-EPI)AfAm Est GFR (CKD-EPI)NonAf POC Glucometer Random Glucose Hemoglobin A1c % Lactic Acid Calcium Phosphorus Magnesium Total Bilirubin AST ALT Alkaline Phosphatase Creatine Kinase CK-MB (CK-2) Troponin I Total Protein Albumin Urine Color Yellow Urine Appearance Clear Urine pH 7.5 D Ur Specific [place] 1.007 L Urine Protein Negative Urine Glucose (UA) Negative Urine Ketones Negative Urine Blood Negative Urine Nitrite Negative Urine Bilirubin Negative Urine Urobilinogen 0.2 Ur Leukocyte Esterase Negative Salicylates Opiates Screen Methadone Screen Acetaminophen Barbiturate Screen Phencyclidine Screen Ur Amphetamines Screen MDMA (Ecstasy) Screen Benzodiazepines Screen Cocaine Screen U Marijuana (THC) Screen Alcohol, Quantitative Influenza A (Rapid) Negative Influenza B (Rapid) Negative 06/11/19 06/11/19 06/11/19 20:30 22:09 22:30 WBC RBC Hgb Hct MCV MCH MCHC RDW Plt Count MPV Absolute Neuts (auto) Neutrophils % Lymphocytes % Monocytes % Eosinophils % Basophils % Nucleated RBC % PT with INR INR PTT (Actin FS) Puncture Site ABG pH ABG pCO2 at Pt Temp ABG pO2 at Pt Temp ABG HCO3 ABG O2 Sat (Measured) ABG O2 Content ABG Base Excess [place] Test Carboxyhemoglobin Methemoglobin Oxygen Flow Rate Sodium Potassium Chloride Carbon Dioxide Anion Gap BUN Creatinine Est GFR (CKD-EPI)AfAm Est GFR (CKD-EPI)NonAf POC Glucometer 178 Random Glucose Hemoglobin A1c % Lactic Acid 1.1 Calcium Phosphorus Magnesium Total Bilirubin AST ALT Alkaline Phosphatase Creatine Kinase CK-MB (CK-2) Troponin I Total Protein Albumin Urine Color Urine Appearance Urine pH Ur Specific [place] Urine Protein Urine Glucose (UA) Urine Ketones Urine Blood Urine Nitrite Urine Bilirubin Urine Urobilinogen Ur Leukocyte Esterase Salicylates < 1.7 L Opiates Screen Methadone Screen Acetaminophen <2.0 Barbiturate Screen Phencyclidine Screen Ur Amphetamines Screen MDMA (Ecstasy) Screen Benzodiazepines Screen Cocaine Screen U Marijuana (THC) Screen Alcohol, Quantitative Influenza A (Rapid) Influenza B (Rapid) 06/11/19 06/11/19 06/12/19 22:30 22:30 05:18 WBC 7.0 RBC 4.90 Hgb 14.2 Hct 43.3 MCV 88.3 MCH 29.1 MCHC 32.9 RDW 18.3 H Plt Count 351 MPV 8.5 Absolute Neuts (auto) 4.9 Neutrophils % 70.0 D Lymphocytes % 19.4 D Monocytes % 10.1 D Eosinophils % 0.0 D Basophils % 0.5 Nucleated RBC % 0 PT with INR INR PTT (Actin FS) Puncture Site ABG pH ABG pCO2 at Pt Temp ABG pO2 at Pt Temp ABG HCO3 ABG O2 Sat (Measured) ABG O2 Content ABG Base Excess [place] Test Carboxyhemoglobin Methemoglobin Oxygen Flow Rate Sodium 138 Potassium 3.5 Chloride 97 L Carbon Dioxide 35 H Anion Gap 7 L BUN 11.7 Creatinine 0.7 Est GFR (CKD-EPI)AfAm 109.15 Est GFR (CKD-EPI)NonAf 94.17 POC Glucometer Random Glucose 165 H Hemoglobin A1c % Lactic Acid Calcium 9.1 Phosphorus 3.6 Magnesium 2.1 Total Bilirubin AST ALT Alkaline Phosphatase Creatine Kinase 85 CK-MB (CK-2) 2.7 Troponin I 0.08 H 0.08 H Total Protein Albumin Urine Color Urine Appearance Urine pH Ur Specific [place] Urine Protein Urine Glucose (UA) Urine Ketones Urine Blood Urine Nitrite Urine Bilirubin Urine Urobilinogen Ur Leukocyte Esterase Salicylates Opiates Screen Methadone Screen Acetaminophen Barbiturate Screen Phencyclidine Screen Ur Amphetamines Screen MDMA (Ecstasy) Screen Benzodiazepines Screen Cocaine Screen U Marijuana (THC) Screen Alcohol, Quantitative Influenza A (Rapid) Influenza B (Rapid) 06/12/19 06/12/19 06/12/19 05:18 05:18 06:00 WBC RBC Hgb Hct MCV MCH MCHC RDW Plt Count MPV Absolute Neuts (auto) Neutrophils % Lymphocytes % Monocytes % Eosinophils % Basophils % Nucleated RBC % PT with INR INR PTT (Actin FS) Puncture Site ABG pH ABG pCO2 at Pt Temp ABG pO2 at Pt Temp ABG HCO3 ABG O2 Sat (Measured) ABG O2 Content ABG Base Excess [place] Test Carboxyhemoglobin Methemoglobin Oxygen Flow Rate Sodium 139 Potassium 3.6 Chloride 97 L Carbon Dioxide 36 H Anion Gap 7 L BUN 11.6 Creatinine 0.7 Est GFR (CKD-EPI)AfAm 109.15 Est GFR (CKD-EPI)NonAf 94.17 POC Glucometer 111 Random Glucose 109 H Hemoglobin A1c % Lactic Acid Calcium 8.6 Phosphorus 3.3 Magnesium 1.9 Total Bilirubin 1.1 H AST 36 ALT 48 Alkaline Phosphatase 107 Creatine Kinase CK-MB (CK-2) Troponin I 0.07 H Total Protein 5.7 L Albumin 2.9 L Urine Color Urine Appearance Urine pH Ur Specific [place] Urine Protein Urine Glucose (UA) Urine Ketones Urine Blood Urine Nitrite Urine Bilirubin Urine Urobilinogen Ur Leukocyte Esterase Salicylates Opiates Screen Methadone Screen Acetaminophen Barbiturate Screen Phencyclidine Screen Ur Amphetamines Screen MDMA (Ecstasy) Screen Benzodiazepines Screen Cocaine Screen U Marijuana (THC) Screen Alcohol, Quantitative Influenza A (Rapid) Influenza B (Rapid) 06/12/19 10:30 WBC RBC Hgb Hct MCV MCH MCHC RDW Plt Count MPV Absolute Neuts (auto) Neutrophils % Lymphocytes % Monocytes % Eosinophils % Basophils % Nucleated RBC % PT with INR INR PTT (Actin FS) Puncture Site ABG pH ABG pCO2 at Pt Temp ABG pO2 at Pt Temp ABG HCO3 ABG O2 Sat (Measured) ABG O2 Content ABG Base Excess [place] Test Carboxyhemoglobin Methemoglobin Oxygen Flow Rate Sodium Potassium Chloride Carbon Dioxide Anion Gap BUN Creatinine Est GFR (CKD-EPI)AfAm Est GFR (CKD-EPI)NonAf POC Glucometer 168 Random Glucose Hemoglobin A1c % Lactic Acid Calcium Phosphorus Magnesium Total Bilirubin AST ALT Alkaline Phosphatase Creatine Kinase CK-MB (CK-2) Troponin I Total Protein Albumin Urine Color Urine Appearance Urine pH Ur Specific [place] Urine Protein Urine Glucose (UA) Urine Ketones Urine Blood Urine Nitrite Urine Bilirubin Urine Urobilinogen Ur Leukocyte Esterase Salicylates Opiates Screen Methadone Screen Acetaminophen Barbiturate Screen Phencyclidine Screen Ur Amphetamines Screen MDMA (Ecstasy) Screen Benzodiazepines Screen Cocaine Screen U Marijuana (THC) Screen Alcohol, Quantitative Influenza A (Rapid) Influenza B (Rapid) Problem List - Problems (1) Alcohol dependence with withdrawal Code(s): F10.239 - ALCOHOL DEPENDENCE WITH WITHDRAWAL, UNSPECIFIED Qualifiers: Complication of substance-induced condition: with delirium Qualified Code(s ): F10.231 - Alcohol dependence with withdrawal delirium (2) Diabetes Code(s): E11.9 - TYPE 2 DIABETES MELLITUS WITHOUT COMPLICATIONS (3) HTN (hypertension) Code(s): I10 - ESSENTIAL (PRIMARY) HYPERTENSION Qualifiers: Hypertension type: unspecified Qualified Code(s): I10 - Essential (primary ) hypertension ASSESSMENT/PLAN: Metabolic Encephalopathy Prolonged QTc Hypertensive Emergency Acute CHF COPD Tobacco use DM HPL HTN Polysubstance abuse (heroin, cocaine,and alcohol) IV NTG Supplemental O2 as needed Strict I & O Follow Mental Status Glycemic control Daily weights Lovenox Cardiac Telemetry monitoring Dr Mccall
[2019-06-12] MEDS ORDERED: PT OWN MED DRAWER 7, Y5N ONE ×2 (12:50→21:36)
--- NOTE | 2019-06-12 14:39 | ECHO ---
Name: JAMEEL LEIJA Exam:Adult Echocardiogram Study Date: 06/12/2019 11:25 AM Age: 58 yrs Reason For Study: Possible HF, chavez perez Height: 65 in Weight: 180 lb BSA: 1.9 m2 MMode/2D Measurements & Calculations IVSd: 1.7 cm Ao root diam: 2.7 cm LVIDd: 3.1 cm LA dimension: 3.9 cm LVIDs: 1.8 cm ACS: 1.7 cm LVPWd: 1.7 cm EDV(Teich): 37.5 ml LVOT diam: 1.5 cm ESV(Teich): 9.1 ml LAV (MOD-bp): 66.0 ml TAPSE: 1.6 cm RV S Hakeem: 15.2 cm/sec Doppler Measurements & Calculations MV E max hakeem: 71.7 cm/sec Ao V2 max: 311.0 cm/sec MV A max hakeem: 113.4 cm/sec Ao max P.7 mmHg MV E/A: 0.63 Ao V2 mean: 189.2 cm/sec MV dec time: 0.53 sec Ao mean P.0 mmHg Ao V2 VTI: 48.0 cm VANCE(I,D): 3.6 cm2 VANCE(V,D): 3.3 cm2 LV V1 max P.4 mmHg SV(LVOT): 172.4 ml LV V1 mean P.4 mmHg LV V1 max: 557.7 cm/sec LV V1 mean: 289.5 cm/sec LV V1 VTI: 92.8 cm TR max hakeem: 227.4 cm/sec PA V2 max: 114.0 cm/sec TR max P.7 mmHg PA max P.2 mmHg PA acc slope: 849.6 cm/sec2 PA acc time: 0.12 sec Med Peak E' Hakeem: 4.3 cm/sec PA pr(Accel): 26.7 mmHg Med E/e': 16.7 Lat Peak E' Hakeem: 4.1 cm/sec Lat E/e': 17.5 Tech Comments TDS. Patient supine, agitated, and kept falling asleep. Procedure A complete two-dimensional transthoracic echocardiogram was performed (2D, M-mode, Doppler and color flow Doppler). Left Ventricle There is moderate concentric left ventricular hypertrophy. The left ventricle is hyperdynamic. Ejecti on Fraction = >70%. The left ventricular wall motion is normal. Right Ventricle The right ventricle is normal in size and function. Atria Normal left and right atrial size and function. Mitral Valve There is no mitral regurgitation noted. Tricuspid Valve There is trace tricuspid regurgitation. There was insufficient TR detected to calculate RV systolic p ressure. Aortic Valve Mild to moderate valvular aortic stenosis. No aortic regurgitation is present. Pulmonic Valve There is no pulmonic valvular regurgitation. Great Vessels The aortic root is normal size. Pericardium/Pleura There is no pericardial effusion. Interpretation Summary There is moderate concentric left ventricular hypertrophy. The left ventricle is hyperdynamic. The right ventricle is normal in size and function. There is trace tricuspid regurgitation. Mild to moderate valvular aortic stenosis. MD Gabriel Ramirez 06/12/2019 02:38 PM
--- NOTE | 2019-06-12 14:39 | PN ---
Physical Exam: SUBJECTIVE: Patient seen and examined at bedside. she states that she is feeling a little better but is hungry. when asked why she was in the hospital she said that she just got so "messed up". pt was unwilling to answer many questions OBJECTIVE: Vital Signs Period Temp Pulse Resp BP Sys/Reich Pulse Ox Last 24 Hr 98.0 F-101.1 F 68-94 13-24 118-203/52-92 92-100 GENERAL: The patient is awake, alert, and fully oriented, in no acute distress.obese female HEAD: Normal with no signs of trauma. EYES: extraocular movements intact ENT: moist mucous membranes. NECK: Trachea midline, full range of motion, supple. LUNGS: Breath sounds equal, clear to auscultation bilaterally, no accessory muscle use. HEART: Regular rate and rhythm, S1, S2 + murmur +S3 ABDOMEN: Soft, nontender, nondistended, normoactive bowel sounds EXTREMITIES: 2+ pulses, warm, well-perfused, no edema. SKIN: Warm, dry, normal turgor, no rashes or lesions noted Laboratory Last Values WBC 7.0 K/mm3 (4.0-10.0) 06/12/19 05:18 RBC 4.90 M/mm3 (3.60-5.2) 06/12/19 05:18 Hgb 14.2 GM/dL (10.7-15.3) 06/12/19 05:18 Hct 43.3 % (32.4-45.2) 06/12/19 05:18 MCV 88.3 fl (80-96) 06/12/19 05:18 MCH 29.1 pg (25.7-33.7) 06/12/19 05:18 MCHC 32.9 g/dl (32.0-36.0) 06/12/19 05:18 RDW 18.3 % (11.6-15.6) H 06/12/19 05:18 Plt Count 351 K/MM3 (134-434) 06/12/19 05:18 MPV 8.5 fl (7.5-11.1) 06/12/19 05:18 Absolute Neuts (auto) 4.9 K/mm3 (1.5-8.0) 06/12/19 05:18 Neutrophils % 70.0 % (42.8-82.8) D 06/12/19 05:18 Lymphocytes % 19.4 % (8-40) D 06/12/19 05:18 Monocytes % 10.1 % (3.8-10.2) D 06/12/19 05:18 Eosinophils % 0.0 % (0-4.5) D 06/12/19 05:18 Basophils % 0.5 % (0-2.0) 06/12/19 05:18 Nucleated RBC % 0 % (0-0) 06/12/19 05:18 PT with INR 13.90 SEC (9.7-13.0) H 06/11/19 15:02 INR 1.18 (0.83-1.09) H 06/11/19 15:02 PTT (Actin FS) 32.1 SECONDS (25.2-36.5) 06/11/19 15:02 Puncture Site No Result Required. 06/11/19 15:40 ABG pH 7.41 (7.35-7.45) 06/11/19 15:40 ABG pCO2 at Pt Temp 55.0 mmHg (35-45) H 06/11/19 15:40 ABG pO2 at Pt Temp 61.0 mmHg (80-100) L 06/11/19 15:40 ABG HCO3 34.2 mmol/L (22-27) H 06/11/19 15:40 ABG O2 Sat (Measured) 90.0 % (95-98) L 06/11/19 15:40 ABG O2 Content 18.8 % vol 06/11/19 15:40 ABG Base Excess 7.9 meq/l (-2-2) H 06/11/19 15:40 [place] Test No Result Required. 06/11/19 15:40 Carboxyhemoglobin 3.6 % (0-2) H 06/11/19 15:40 Methemoglobin < 1.0 % (0-2) 06/11/19 15:40 Oxygen Flow Rate No Result Required. 06/11/19 15:40 Sodium 139 mmol/L (136-145) 06/12/19 05:18 Potassium 3.6 mmol/L (3.5-5.1) 06/12/19 05:18 Chloride 97 mmol/L (98-107) L 06/12/19 05:18 Carbon Dioxide 36 mmol/L (21-32) H 06/12/19 05:18 Anion Gap 7 MMOL/L (8-16) L 06/12/19 05:18 BUN 11.6 mg/dL (7-18) 06/12/19 05:18 Creatinine 0.7 mg/dL (0.55-1.3) 06/12/19 05:18 Est GFR (CKD-EPI)AfAm 109.15 06/12/19 05:18 Est GFR (CKD-EPI)NonAf 94.17 06/12/19 05:18 POC Glucometer 168 UNITS (80-120) 06/12/19 10:30 Random Glucose 109 mg/dL (74-106) H 06/12/19 05:18 Hemoglobin A1c % 6.0 % (4.2-6.3) 06/11/19 05:18 Lactic Acid 1.1 mmol/L (0.4-2.0) 06/11/19 20:30 Calcium 8.6 mg/dL (8.5-10.1) 06/12/19 05:18 Phosphorus 3.3 mg/dL (2.5-4.9) 06/12/19 05:18 Magnesium 1.9 mg/dL (1.8-2.4) 06/12/19 05:18 Total Bilirubin 1.1 mg/dL (0.2-1) H 06/12/19 05:18 AST 36 U/L (15-37) 06/12/19 05:18 ALT 48 U/L (13-61) 06/12/19 05:18 Alkaline Phosphatase 107 U/L (45-117) 06/12/19 05:18 Creatine Kinase 85 U/L (26-192) 06/11/19 22:30 CK-MB (CK-2) 2.7 ng/mL (0.5-3.6) 06/11/19 22:30 Troponin I 0.07 ng/ml (0.00-0.05) H 06/12/19 05:18 Total Protein 5.7 g/dl (6.4-8.2) L 06/12/19 05:18 Albumin 2.9 g/dl (3.4-5.0) L 06/12/19 05:18 Urine Color Yellow 06/11/19 15:30 Urine Appearance Clear 06/11/19 15:30 Urine pH 7.5 (5.0-8.0) D 06/11/19 15:30 Ur Specific [place] 1.007 (1.010-1.035) L 06/11/19 15:30 Urine Protein Negative (NEGATIVE) 06/11/19 15:30 Urine Glucose (UA) Negative (NEGATIVE) 06/11/19 15:30 Urine Ketones Negative (NEGATIVE) 06/11/19 15:30 Urine Blood Negative (NEGATIVE) 06/11/19 15:30 Urine Nitrite Negative (NEGATIVE) 06/11/19 15:30 Urine Bilirubin Negative (NEGATIVE) 06/11/19 15:30 Urine Urobilinogen 0.2 mg/dL (0.2-1.0) 06/11/19 15:30 Ur Leukocyte Esterase Negative (NEGATIVE) 06/11/19 15:30 Salicylates < 1.7 mg/dL (2.8-20) L 06/11/19 22:30 Opiates Screen Negative ng/ml (MDFMSG=083) 06/11/19 15:30 Methadone Screen Positive ng/ml (QOZZTY=667) A* 06/11/19 15:30 Acetaminophen <2.0 06/11/19 22:30 Barbiturate Screen Negative ng/ml (JBFSYJ=407) 06/11/19 15:30 Phencyclidine Screen Negative ng/ml (CUTOFF=25) 06/11/19 15:30 Ur Amphetamines Screen Negative ng/ml (SFLETF=256) 06/11/19 15:30 MDMA (Ecstasy) Screen Negative ng/ml (NCIWCS=314) 06/11/19 15:30 Benzodiazepines Screen Negative ng/ml (DCBUQN=065) 06/11/19 15:30 Cocaine Screen Positive ng/ml (MBVAMA=569) A* 06/11/19 15:30 U Marijuana (THC) Screen Negative ng/ml (CUTOFF=50) 06/11/19 15:30 Alcohol, Quantitative < 3 mg/dL (0.0-5.0) 06/11/19 15:02 Influenza A (Rapid) Negative (Negative) 06/11/19 18:05 Influenza B (Rapid) Negative (Negative) 06/11/19 18:05 Current Medications Chlorhexidine Gluconate (Hibiclens For Decolonization -) 1 applic TP HS [facility] Last Admin: 02/27/20 03:25 Dose: Not Given Enoxaparin Sodium (Lovenox -) 40 mg SQ DAILY [facility] Last Admin: 06/12/19 09:52 Dose: 40 mg Nitroglycerin/Dextrose (Nitroglycerin 25mg/D5w 250ml) 25 mg in 250 mls @ 6 mls/ hr IVPB TITR [facility] Last Titration: 06/12/19 13:00 Dose: 50 mcg/min, 30 mls/hr Insulin Aspart (Novolog Vial Sliding Scale -) 1 vial SQ ACHS [facility]; Protocol Last Admin: 06/12/19 10:34 Dose: 2 unit Mupirocin (Bactroban Ointment (For Decolonization) -) 1 applic NS BID [facility] Stop: 06/16/19 21:59 Last Admin: 06/12/19 10:17 Dose: [address]: No evidence of acute intracranial hemorrhage. No evidence of hydrocephalus. No CT evidence of acute territorial ischemic changes. Hypodense changes are noted in the supratentorial deep hemispheric, subcortical white matter. MRI is more sensitive in detecting of acute or subacute infarct, demyelinating disease. Partially CSF sella turcica. Low lying cerebellar tonsils with effacement of the basal cisterns at foramen magnum concerning for tonsillar ectopia. ASSESSMENT/PLAN: 58 yo F with PMH of CHF, COPD, DM, HLD, HTN, PSA (alcohol, opioids, crack cocaine) who presented from [facility] for suspected overdose Suspected Overdose - s/p narcan and then methadone at [facility] - no active withdrawal - Fall Precautions, Seizure Precautions - HOB elevated/ aspiration precautions - 2mg IV Ativan PRN - Head CT findings above - Addiction Medicine Consultation for management of withdrawal in the setting of prolonged QTc, Appreciate recs Acute Hypoxic Hypercapneic Respiratory Failure - AB.41/55/61/34.2/90% - Currently on 4LNC. taper as tolerated - Patient has home medication of Prednisone listed, was recently admitted to [facility] for COPD/SOB. pt states that she never takes any medication that was prescribed to her Low lying Cerebellar tonsils ; hypodense changes in supratentorial deep hemispheric subcortical white matter - may be 2/2 cocaine use - supportive care - neuro, Dr. Mistry consulted Chronic Heart Failure - pending Echo: moderate LVH, LV hyperdynamic, mild - mod - Cardio consult , Dr. Esquivel HTN emergency - c/w carvedilol, lasix, and lisinopril - now off nitroglycerin drip,BP better controlled now Fever - Patient was noted to have temp of 101.1. Given IV Tylenol. no leukocytosis - no clear source of infection: U/A and chest x-ray negative, rapid flu negative - does not require Antibiotics at this moment. - pending cultures Transaminitis - improving - RUQ U/S: no acute findings - Hep Panel Prolonged QTc - QTc 433 on initial presentation, Repeat EKG shows Qtc 605 - Mag 2 grams IV given - Avoid QT prolonging agents - Continuos cardiac monitoring DVT: SCDs Dispo: ICU Visit type - Emergency Visit Emergency Visit: No - New Patient This patient is new to me today: Yes Date on this admission: 06/12/19 - Critical Care Critical Care patient: Yes Total Critical Care Time (in minutes): 36 Critical Care Statement: The care of this patient involved high complexity decision making to prevent further life threatening deterioration of the patient 's condition and/or to evaluate & treat vital organ system(s) failure or risk of failure. - Discharge Referral Referred to [facility] No ATTENDING PHYSICIAN STATEMENT I saw and evaluated the patient. I reviewed the resident's note and discussed the case with the resident. I agree with the resident's findings and plan as documented. SUBJECTIVE: OBJECTIVE: ASSESSMENT AND PLAN:
--- NOTE | 2019-06-12 15:48 | CON.NEURO ---
Consult - Past Medical History Cardio/Vascular: Yes: CHF, HTN, Hyperlipdemia Endocrine: Yes: Diabetes Mellitus - Past Surgical History Past Surgical History: Yes: None - Alcohol/Substance Use Hx Alcohol Use: Yes Number of Drinks Daily: 2 History of Substance Use: reports: Cocaine, Heroin Date of Last Use: 06/09/19 - Smoking History Smoking history: Current every day smoker Have you smoked in the past 12 months: Yes Aproximately how many cigarettes per day: 3 - Social History ADL: Independent Occupation: unemployed homeless History of Recent Travel: No Home Medications - Allergies Allergies/Adverse Reactions: Allergies Allergy/AdvReac Type Severity Reaction Status Date / Time No Known Allergies Allergy Verified 08/20/18 18:23 - Home Medications Home Medications: Ambulatory Orders Fluticasone/Salmeterol [Advair 250-50 Diskus] 1 each IH DAILY #1 blst.w.dev 02/01 Atorvastatin Calcium 40 mg PO HS 06/10/19 Carvedilol [Coreg -] 6.25 mg PO BID 06/10/19 Fluticasone/Salmeterol [Advair Hfa 230-21 Mcg Inhaler] 1 inh PO BID 06/10/19 Lisinopril 10 mg PO DAILY 06/10/19 Metformin HCl [Glucophage] 500 mg PO DAILY 06/10/19 Metoprolol Succinate [Toprol Xl -] 50 mg PO DAILY 06/10/19 Montelukast Na [Singulair -] 10 mg PO HS 06/10/19 Tiotropium Crandall [Spiriva] 18 mcg IH DAILY 06/10/19 predniSONE [Deltasone -] 40 mg PO DAILY 06/10/19 Amlodipine Besylate [Norvasc -] 10 mg PO DAILY 06/12/19 Ipratropium/Albuterol Sulfate [Iprat-Albut 0.5-3(2.5) mg/3 ml] 3 ml Q4H Physical Exam-Neuro Vital Signs: Vital Signs Temperature 98.2 F 06/12/19 14:00 Pulse Rate 74 06/12/19 14:00 Respiratory Rate 16 06/12/19 14:00 Blood Pressure 119/56 L 06/12/19 14:00 O2 Sat by Pulse Oximetry (%) 99 06/12/19 08:00 Labs: CBC, BMP 06/12/19 05:18 06/12/19 05:18 INR, PTT INR 1.18 (0.83-1.09) H 06/11/19 15:02 Assessment/Plan cc AMS , abnormal ct head HPI 58 year old female history of CHF,DM,HLD,HTN,PSA( Heroin, alcohol, cocaine) patient came with drug overdose and high blood pressure. patient was on detox and did heroin and cocaine and was presented to hospital for ams, because of airway protection she was admitted to icu. Eleanor lux ct head it showed there is small white matter lesion and low hanging cerebellar tonsil, there was no hydrocephalus. Patient is alert and oriented , no headache no focal neurological symptoms. PAST MEDICAL HISTORY: CHF, DM, HLD, HTN, PSA (alcohol, opioids, crack cocaine) PAST SURGICAL HISTORY: Did not respond FAMILY MEDICAL HISTORY: Did not respond Social History: Smokin pack year history Alcohol: 1 pint of vodka daily Drugs: 3 bags of heroin and cocaine. Snorting. Homeless, lacks strong support system Allergies No Known Allergies Allergy (Verified 08/20/18 18:23) HOME MEDICATIONS: Home Medications Medication Instructions Recorded Fluticasone/Salmeterol [Advair 1 each IH DAILY #1 blst.w.dev 08/23/18 250-50 Diskus] Atorvastatin Calcium 40 mg PO HS 06/10/19 Carvedilol [Coreg -] 6.25 mg PO BID 06/10/19 Fluticasone/Salmeterol [Advair Hfa 1 inh PO BID 06/10/19 230-21 Mcg Inhaler] Lisinopril 10 mg PO DAILY 06/10/19 Metformin HCl [Glucophage] 500 mg PO DAILY 06/10/19 Metoprolol Succinate [Toprol Xl -] 50 mg PO DAILY 06/10/19 Montelukast Na [Singulair -] 10 mg PO HS 06/10/19 Tiotropium Crandall [Spiriva] 18 mcg IH DAILY 06/10/19 predniSONE [Deltasone -] 40 mg PO DAILY 06/10/19 ROS,FH reviewed in chart NEUROLOGICAL EXAMINATION Alert oriented x 3, afebrile vss, neck is supple speech is normal eomi, pupils reactive no face asymmetry moving all ext sensation is normal sensation is normal CT head there is white matter leison and possible low laying cerebellar tonsil Assessment/Plan 58 year old female history of CHF,DM,HLD,HTN,PSA( Heroin, alcohol, cocaine) , pateint presented with drug overdose and abnormal ct findings,neuro exam is noraml Plan: watch for now - no evidence of NPH and white matter lesion could be secondary to cocaine use - no further testing or treatment for low laying cerebellar tonsil - supportive care Thanking you so much Otto Mistry MD
[2019-06-12] MEDS ORDERED: LISINOPRIL 10 MG TABLET (FP) PO SCH (16:30)
[2019-06-12] MEDS: CARVEDILOL 6.25 MG TABLET (FP) PO SCH ×2 (17:33→21:49)
[2019-06-13] MEDS: INSULIN SLIDING SCALE (NOVOLOG) 1 VIAL SQ SCH ×4 (06:30→22:35)
[2019-06-13 06:38] LABS: HEMATOCRIT 41.8 % (32.4-45.2); HEMOGLOBIN 13.7 GM/dL (10.7-15.3); MCH 29.5 pg (25.7-33.7); MCHC 32.9 g/dl (32.0-36.0); MEAN CELL VOLUME 89.6 fl (80-96); MEAN PLT VOLUME 8.4 fl (7.5-11.1); PLATELET COUNT 293 K/MM3 (134-434); RBC 4.66 M/mm3 (3.60-5.2); RDW 17.5 % (11.6-15.6); WHITE BLOOD COUNT 6.1 K/mm3 (4.0-10.0)
[2019-06-13] MEDS ORDERED: amLODIPine BESYLATE 10 MG TABLET (FP) PO ONE (06:42)
[2019-06-13 06:54] LABS: BLOOD UREA NITROGEN 17.4 mg/dL (7-18); CALCIUM 7.9 mg/dL (8.5-10.1); CREATININE 1.1 mg/dL (0.55-1.3); PHOSPHOROUS 3.5 mg/dL (2.5-4.9); POTASSIUM 3.8 mmol/L (3.5-5.1)
[2019-06-13] MEDS ORDERED: LISINOPRIL 10 MG TABLET (FP) PO SCH (08:41)
[2019-06-13] MEDS: ENOXAPARIN NA (PORCINE) 40 MG/0.4 ML DISP.SYRIN SQ SCH (09:03)
[2019-06-13] MEDS: CARVEDILOL 6.25 MG TABLET (FP) PO SCH ×2 (09:03→22:35)
[2019-06-13] MEDS: MUPIROCIN 2% TOPICAL OINTMENT FOR DECOLONIZATION NS SCH (09:04)
--- NOTE | 2019-06-13 09:11 | PN ---
Progress Note (short form) - Note Progress Note: Feels fine now, A&O, no CP/SOB/Plpitations NSR CBC WBC 6.1 K/mm3 (4.0-10.0) 06/13/19 05:25 RBC 4.66 M/mm3 (3.60-5.2) 06/13/19 05:25 Hgb 13.7 GM/dL (10.7-15.3) 06/13/19 05:25 Hct 41.8 % (32.4-45.2) 06/13/19 05:25 MCV 89.6 fl (80-96) 06/13/19 05:25 MCH 29.5 pg (25.7-33.7) 06/13/19 05:25 MCHC 32.9 g/dl (32.0-36.0) 06/13/19 05:25 RDW 17.5 % (11.6-15.6) H 06/13/19 05:25 Plt Count 293 K/MM3 (134-434) 06/13/19 05:25 MPV 8.4 fl (7.5-11.1) 06/13/19 05:25 Absolute Neuts (auto) 4.9 K/mm3 (1.5-8.0) 06/12/19 05:18 Neutrophils % 70.0 % (42.8-82.8) D 06/12/19 05:18 Lymphocytes % 19.4 % (8-40) D 06/12/19 05:18 Monocytes % 10.1 % (3.8-10.2) D 06/12/19 05:18 Eosinophils % 0.0 % (0-4.5) D 06/12/19 05:18 Basophils % 0.5 % (0-2.0) 06/12/19 05:18 Nucleated RBC % 0 % (0-0) 06/12/19 05:18 CMP Sodium 141 mmol/L (136-145) 06/13/19 05:25 Potassium 3.8 mmol/L (3.5-5.1) 06/13/19 05:25 Chloride 101 mmol/L (98-107) 06/13/19 05:25 Carbon Dioxide 38 mmol/L (21-32) H 06/13/19 05:25 Anion Gap 2 MMOL/L (8-16) L 06/13/19 05:25 BUN 17.4 mg/dL (7-18) 06/13/19 05:25 Creatinine 1.1 mg/dL (0.55-1.3) 06/13/19 05:25 Est GFR (CKD-EPI)AfAm 63.20 06/13/19 05:25 Est GFR (CKD-EPI)NonAf 54.53 06/13/19 05:25 POC Glucometer 110 UNITS (80-120) 06/13/19 06:29 Random Glucose 94 mg/dL (74-106) 06/13/19 05:25 Hemoglobin A1c % 6.0 % (4.2-6.3) 06/11/19 05:18 Lactic Acid 1.1 mmol/L (0.4-2.0) 06/11/19 20:30 Calcium 7.9 mg/dL (8.5-10.1) L 06/13/19 05:25 Phosphorus 3.5 mg/dL (2.5-4.9) 06/13/19 05:25 Magnesium 2.0 mg/dL (1.8-2.4) 06/13/19 05:25 Total Bilirubin 1.1 mg/dL (0.2-1) H 06/12/19 05:18 AST 36 U/L (15-37) 06/12/19 05:18 ALT 48 U/L (13-61) 06/12/19 05:18 Alkaline Phosphatase 107 U/L (45-117) 06/12/19 05:18 Creatine Kinase 85 U/L (26-192) 06/11/19 22:30 CK-MB (CK-2) 2.7 ng/mL (0.5-3.6) 06/11/19 22:30 Troponin I 0.07 ng/ml (0.00-0.05) H 06/12/19 05:18 Total Protein 5.7 g/dl (6.4-8.2) L 06/12/19 05:18 Albumin 2.9 g/dl (3.4-5.0) L 06/12/19 05:18 Current Medications Amlodipine Besylate (Norvasc -) 10 mg PO DAILY [facility] Carvedilol (Coreg -) 6.25 mg PO BID [facility] Last Admin: 06/13/19 09:03 Dose: 6.25 mg Chlorhexidine Gluconate (Hibiclens For Decolonization -) 1 applic TP HS [facility] Last Admin: 06/12/19 21:49 Dose: 1 applic Enoxaparin Sodium (Lovenox -) 40 mg SQ DAILY [facility] Last Admin: 06/13/19 09:03 Dose: 40 mg Insulin Aspart (Novolog Vial Sliding Scale -) 1 vial SQ ACHS [facility]; Protocol Last Admin: 06/13/19 06:30 Dose: Not Given Lisinopril (Prinivil) 20 mg PO DAILY [facility] Last Admin: 06/13/19 10:04 Dose: 20 mg Mupirocin (Bactroban Ointment (For Decolonization) -) 1 applic NS BID [facility] Stop: 06/16/19 21:59 Last Admin: 06/13/19 09:04 Dose: 1 applic Assessment: 06/12/2019 Echo: Mod cLVH, hyperdynamic LVEF>70%, normal RV size and fxn, tr TR , mild-mod CXR shows cardiomegaly with pulmonary vascular congestion and fluid in the fissures. US of abdomen: normal 1. Acute hypercapneic and hypoxic respiratory failure 2. Acute drug overdose 3. Hypertensive urgency with encephelopathy 4. Diastolic dysfunction 5. Type 2 DM 6. Polysubstance abuse (heroin, cocaine,and alcohol) 7. Hyperlipidemia 8. COPD, tobacco abuse P: Stable cardiacwise 1. Cont carvedilol 6.25 bid, lisinoprol 10 qd wean off NTG gtt as hemodynamics tolerate once taking oral intake
[2019-06-13] MEDS ORDERED: NITROGLYCERIN 2% OINTMENT - 1GM PACKET TD SCH (10:00)
--- NOTE | 2019-06-13 10:01 | PN ---
Progress Note (short form) - Note Progress Note: 58 year old female history of CHF,DM,HLD,HTN,PSA( Heroin, alcohol, cocaine) patient came with drug overdose and high blood pressure. patient was on detox and did heroin and cocaine and was presented to hospital for ams, because of airway protection she was admitted to icu. Patine thas ct head it showed there is small white matter lesion and low hanging cerebellar tonsil, there was no hydrocephalus. Patient is alert and oriented , no headache no focal neurological symptoms. No new complain, ct findings were discussed with pmd and nursing staff, no further imaging needed NEUROLOGICAL EXAMINATION Alert oriented x 3, afebrile vss, neck is supple speech is normal eomi, pupils reactive no face asymmetry moving all ext sensation is normal sensation is normal CT head there is white matter leison and possible low laying cerebellar tonsil Assessment/Plan 58 year old female history of CHF,DM,HLD,HTN,PSA( Heroin, alcohol, cocaine) , pateint presented with drug overdose and abnormal ct findings,neuro exam is noraml. She is feeling better and being down graded, Plan: - no evidence of NPH and white matter lesion could be secondary to cocaine use - no need for brain mri at this time - supportive care Thanking you so much Otto Mistry MD
--- NOTE | 2019-06-13 11:20 | EKG ---
Test Reason : Blood Pressure : / mmHG Vent. Rate : 067 BPM Atrial Rate : 067 BPM P-R Int : 134 ms QRS Dur : 086 ms QT Int : 436 ms P-R-T Axes : 084 066 094 degrees QTc Int : 460 ms NORMAL SINUS RHYTHM LEFT ATRIAL ENLARGEMENT PROLONGED QT ABNORMAL ECG Confirmed by PHYLICIA VILLELA MD ([id number]) on 06/13/2019 11:20:31 AM Referred By: FABRICE CONNORS DR Confirmed By:PHYLICIA VILLELA MD
--- NOTE | 2019-06-13 11:39 | PN ---
Physical Exam: SUBJECTIVE: Patient seen and examined at bedside. pt states that she is feeling better. she denies n/v. denies SOB and CP. states that she doesnt feel like she is withdrawing because she feels good. OBJECTIVE: Vital Signs Period Temp Pulse Resp BP Sys/Reich Pulse Ox Last 24 Hr 97.6 F-98.5 F 53-74 14-20 118-180/56-86 98-98 GENERAL: The patient is awake, alert, and fully oriented, in no acute distress. HEAD: Normal with no signs of trauma. LUNGS: Breath sounds equal, clear to auscultation bilaterally, no accessory muscle use. HEART: Regular rate and rhythm, S1, S2 +murmur ABDOMEN: Soft, nontender, nondistended, normoactive bowel sounds, no guarding EXTREMITIES: 2+ pulses, warm, well-perfused, no edema. SKIN: Warm, dry, normal turgor, no rashes or lesions noted Laboratory Results - last 24 hr 06/12/19 06/12/19 06/13/19 16:46 21:54 05:25 WBC 6.1 RBC 4.66 Hgb 13.7 Hct 41.8 MCV 89.6 MCH 29.5 MCHC 32.9 RDW 17.5 H Plt Count 293 MPV 8.4 Sodium Potassium Chloride Carbon Dioxide Anion Gap BUN Creatinine Est GFR (CKD-EPI)AfAm Est GFR (CKD-EPI)NonAf POC Glucometer 146 140 Random Glucose Calcium Phosphorus Magnesium 06/13/19 06/13/19 06/13/19 05:25 06:29 10:53 WBC RBC Hgb Hct MCV MCH MCHC RDW Plt Count MPV Sodium 141 Potassium 3.8 Chloride 101 Carbon Dioxide 38 H Anion Gap 2 L BUN 17.4 Creatinine 1.1 Est GFR (CKD-EPI)AfAm 63.20 Est GFR (CKD-EPI)NonAf 54.53 POC Glucometer 110 90 Random Glucose 94 Calcium 7.9 L Phosphorus 3.5 Magnesium 2.0 Current Medications Amlodipine Besylate (Norvasc -) 10 mg PO DAILY [facility] Carvedilol (Coreg -) 6.25 mg PO BID [facility] Last Admin: 06/13/19 09:03 Dose: 6.25 mg Chlorhexidine Gluconate (Hibiclens For Decolonization -) 1 applic TP HS [facility] Last Admin: 06/12/19 21:49 Dose: 1 applic Enoxaparin Sodium (Lovenox -) 40 mg SQ DAILY [facility] Last Admin: 06/13/19 09:03 Dose: 40 mg Insulin Aspart (Novolog Vial Sliding Scale -) 1 vial SQ ACHS [facility]; Protocol Last Admin: 06/13/19 11:03 Dose: Not Given Lisinopril (Prinivil) 20 mg PO DAILY [facility] Last Admin: 06/13/19 10:04 Dose: 20 mg Mupirocin (Bactroban Ointment (For Decolonization) -) 1 applic NS BID [facility] Stop: 06/16/19 21:59 Last Admin: 06/13/19 09:04 Dose: [address]: No evidence of acute intracranial hemorrhage. No evidence of hydrocephalus. No CT evidence of acute territorial ischemic changes. Hypodense changes are noted in the supratentorial deep hemispheric, subcortical white matter. MRI is more sensitive in detecting of acute or subacute infarct, demyelinating disease. Partially CSF sella turcica. Low lying cerebellar tonsils with effacement of the basal cisterns at foramen magnum concerning for tonsillar ectopia. ASSESSMENT/PLAN: 58 yo F with PMH of CHF, COPD, DM, HLD, HTN, PSA (alcohol, opioids, crack cocaine) who presented from [facility] for overdose Overdose, resolved - s/p narcan and then methadone at [facility] - no active withdrawal - 2mg IV Ativan PRN - Head CT findings above - Addiction Medicine Consultation for management of withdrawal in the setting of prolonged QTc, Appreciate recs Acute Hypoxic Hypercapneic Respiratory Failure - AB.41/55/61/34.2/90% - pt keeps desaturating on RA, currently on 2L NC - Patient has home medication of Prednisone listed, was recently admitted to [facility] for COPD/SOB. pt states that she never takes any medication that was prescribed to her Low lying Cerebellar tonsils ; hypodense changes in supratentorial deep hemispheric subcortical white matter - may be 2/2 cocaine use - supportive care - neuro, Dr. Mistry consulted CHF - pending Echo: moderate LVH, LV hyperdynamic, mild - mod - Cardio consult , Dr. Esquivel HTN emergency - c/w carvedilol, lasix, and lisinopril - now off nitroglycerin drip,BP better controlled now Transaminitis - improving - RUQ U/S: no acute findings - Hep Panel Prolonged QTc - QTc 433 on initial presentation, Repeat EKG shows Qtc 605. today EKG QTc is 460 - Avoid QT prolonging agents - Continuos cardiac monitoring DVT: SCDs Dispo: transfer to tele Visit type - Emergency Visit Emergency Visit: No - New Patient This patient is new to me today: No - Critical Care Critical Care patient: No - Discharge Referral Referred to [facility] Med P.C.: No ATTENDING PHYSICIAN STATEMENT I saw and evaluated the patient. I reviewed the resident's note and discussed the case with the resident. I agree with the resident's findings and plan as documented. SUBJECTIVE: OBJECTIVE: ASSESSMENT AND PLAN:
--- NOTE | 2019-06-13 12:31 | PN ---
Teaching Attending Note Name of Resident: Dawood Garcia ATTENDING PHYSICIAN STATEMENT I saw and evaluated the patient. I reviewed the resident's note and discussed the case with the resident. I agree with the resident's findings and plan as documented. SUBJECTIVE: Patient seen and examined in the ICU. Awake and alert. Denies CP or SOB. Intake & Output 06/10/19 06/11/19 06/12/19 06/13/19 23:59 23:59 23:59 23:59 Intake Total 912 450 Output Total 200 650 700 Balance -200 262 -250 Weight 168 lb 6 oz 168 lb 6 oz 166 lb 11.2 oz Last Vital Signs Temp Pulse Resp BP Pulse Ox 98.5 F 61 15 135/78 98 06/13/19 09:00 06/13/19 12:14 06/13/19 12:14 06/13/19 12:14 06/13/19 07:55 Active Medications Amlodipine Besylate (Norvasc -) 10 mg PO DAILY [facility] Carvedilol (Coreg -) 6.25 mg PO BID [facility] Last Admin: 06/13/19 09:03 Dose: 6.25 mg Chlorhexidine Gluconate (Hibiclens For Decolonization -) 1 applic TP HS [facility] Last Admin: 06/12/19 21:49 Dose: 1 applic Enoxaparin Sodium (Lovenox -) 40 mg SQ DAILY [facility] Last Admin: 06/13/19 09:03 Dose: 40 mg Insulin Aspart (Novolog Vial Sliding Scale -) 1 vial SQ [facility]; Protocol Last Admin: 06/13/19 11:03 Dose: Not Given Lisinopril (Prinivil) 20 mg PO DAILY [facility] Last Admin: 06/13/19 10:04 Dose: 20 mg Mupirocin (Bactroban Ointment (For Decolonization) -) 1 applic NS BID [facility] Stop: 06/16/19 21:59 Last Admin: 06/13/19 09:04 Dose: 1 applic GENERAL: Awake and alert, NAD EYES:PEERLA; EOMI; no scleral icterus NECK: no JVD; no lymphadenopathy LUNGS:diminished breath sounds at the bases; no rales/rhonchi or wheezing. HEART: RRR s1 s2; 3/6 systolic murmur. ABDOMEN: soft; NT/ND +BS in all 4 quadrants MUSCULOSKELETAL: Normal range of motion at all joints. No bony deformities or tenderness. No CVA tenderness. EXTREMITIES: warm; well-perfused no clubbing/cyanosis or edema NEUROLOGICAL: Non-focal PSYCHIATRIC: Cooperative. SKIN: Warm, dry, normal turgor, no rashes or lesions noted. Laboratory Results - last 24 hr 06/12/19 06/12/19 06/13/19 16:46 21:54 05:25 WBC 6.1 RBC 4.66 Hgb 13.7 Hct 41.8 MCV 89.6 MCH 29.5 MCHC 32.9 RDW 17.5 H Plt Count 293 MPV 8.4 Sodium Potassium Chloride Carbon Dioxide Anion Gap BUN Creatinine Est GFR (CKD-EPI)AfAm Est GFR (CKD-EPI)NonAf POC Glucometer 146 140 Random Glucose Calcium Phosphorus Magnesium 06/13/19 06/13/19 06/13/19 05:25 06:29 10:53 WBC RBC Hgb Hct MCV MCH MCHC RDW Plt Count MPV Sodium 141 Potassium 3.8 Chloride 101 Carbon Dioxide 38 H Anion Gap 2 L BUN 17.4 Creatinine 1.1 Est GFR (CKD-EPI)AfAm 63.20 Est GFR (CKD-EPI)NonAf 54.53 POC Glucometer 110 90 Random Glucose 94 Calcium 7.9 L Phosphorus 3.5 Magnesium 2.0 Problem List - Problems (1) Alcohol dependence with withdrawal Code(s): F10.239 - ALCOHOL DEPENDENCE WITH WITHDRAWAL, UNSPECIFIED Qualifiers: Complication of substance-induced condition: with delirium Qualified Code(s ): F10.231 - Alcohol dependence with withdrawal delirium (2) Diabetes Code(s): E11.9 - TYPE 2 DIABETES MELLITUS WITHOUT COMPLICATIONS (3) HTN (hypertension) Code(s): I10 - ESSENTIAL (PRIMARY) HYPERTENSION Qualifiers: Hypertension type: unspecified Qualified Code(s): I10 - Essential (primary ) hypertension ASSESSMENT/PLAN: Metabolic Encephalopathy Prolonged QTc Hypertensive Emergency Acute CHF COPD Tobacco use DM HPL HTN Polysubstance abuse (heroin, cocaine,and alcohol) Glycemic control Daily weights Lovenox Transfer / DC planning Dr Mccall
[2019-06-13 13:14] VITALS: BMI 27.6
--- NOTE | 2019-06-13 15:18 | PN ---
Physical Exam: SUBJECTIVE: Patient seen and examined NIOXN Denies CP, SOB, abd pain. Endorses wanting to avoid BGM as she has not had a DM diagnosis OBJECTIVE: Vital Signs Period Temp Pulse Resp BP Sys/Reich Pulse Ox Last 24 Hr 97.6 F-98.5 F 53-71 14-20 125-180/58-86 98-98 GENERAL: NAD EYES: no scleral icterus NECK: no JVD; no lymphadenopathy LUNGS: mildly diminished breath sounds at the bases; no rales/rhonchi or wheezing. HEART: RRR s1 s2; 3/6 holosystolic murmur. ABDOMEN: soft; NT/ND +BS in all 4 quadrants MUSCULOSKELETAL: Normal range of motion at all joints. No bony deformities or tenderness. No CVA tenderness. EXTREMITIES: warm; well-perfused no clubbing/cyanosis or edema NEUROLOGICAL: alert, conversational PSYCHIATRIC: Cooperative. SKIN: Warm, dry, normal turgor, no rashes or lesions noted. Laboratory Results - last 24 hr 06/12/19 06/12/19 06/13/19 16:46 21:54 05:25 WBC 6.1 RBC 4.66 Hgb 13.7 Hct 41.8 MCV 89.6 MCH 29.5 MCHC 32.9 RDW 17.5 H Plt Count 293 MPV 8.4 Sodium Potassium Chloride Carbon Dioxide Anion Gap BUN Creatinine Est GFR (CKD-EPI)AfAm Est GFR (CKD-EPI)NonAf POC Glucometer 146 140 Random Glucose Calcium Phosphorus Magnesium 06/13/19 06/13/19 06/13/19 05:25 06:29 10:53 WBC RBC Hgb Hct MCV MCH MCHC RDW Plt Count MPV Sodium 141 Potassium 3.8 Chloride 101 Carbon Dioxide 38 H Anion Gap 2 L BUN 17.4 Creatinine 1.1 Est GFR (CKD-EPI)AfAm 63.20 Est GFR (CKD-EPI)NonAf 54.53 POC Glucometer 110 90 Random Glucose 94 Calcium 7.9 L Phosphorus 3.5 Magnesium 2.0 Active Medications Generic Name Dose Route Start Last Admin Trade Name Freq PRN Reason Stop Dose Admin Amlodipine Besylate 10 mg 06/14/19 10:00 Norvasc - PO DAILY [facility] Carvedilol 6.25 mg 06/13/19 22:00 Coreg - PO BID [facility] Chlorhexidine Gluconate 1 applic 06/13/19 22:00 Hibiclens For Decolonization - TP HS [facility] Enoxaparin Sodium 40 mg 06/14/19 10:00 Lovenox - SQ DAILY [facility] Insulin Aspart 1 vial 06/13/19 16:30 Novolog Vial Sliding Scale - SQ ACHS [facility] Protocol Lisinopril 20 mg 06/14/19 10:00 Prinivil PO DAILY [facility] Mupirocin 1 applic 06/13/19 22:00 Bactroban Ointment (For Decolonization) - NS 06/16/19 21:59 BID [facility] ASSESSMENT/PLAN: 58 year old female with a PMH of COPD, Tobacco use, ?CHF, DDM, HLD, HTN (not on medications) and Polysubstance abuse (heroin, cocaine,and alcohol) presents to the ED from [facility] with altered mental status found to have hypoxic hypercapneic respiratory failure and a prolonged qtc #Neuro patient currently alert -neuro checks PRN > head CT: neg for acute path. Hypodense changes in supratentorial deep hemispheric, subcortical white matter -- unknown if acute vs subacute infarct vs demyelinating disease - Neuro([place]) consulted: --no further w/u for CTH findings #Endo no history of DM BGM have been <200s -stopped ISS -stopped BGMS #Cardio - HFpEF - mild-mod - prolonged QTc > EKG(06/11/19): LVH, QTc 605 > EKG(06/12/19): LVH, QTc 580 > Troponin: 0.05, 0.08, 0.08, 0.07 > Echo(06/12/19): LVEF 70%, mod LVH, mild-mod -presented to the ED with hypertensive emergency -weaned off nitro gtt -BP controlled with amlodipine 10mg, lisinopril 20mg, coreg 6.25 BID -prolonged qtc --resolved as repeat EKG(06/13/19) shows QTc 460 -Cardio([facility]) consult: for CHF history --stable #ID patient was initially febrile upon arrival to 101, but no leukocytosis -lactic acid normal; no WBC -f/u blood/urine/sputum cx -monitor off abx for now #Psych polysubstance abuse- utox positive for cocaine and methadone -received narcan and methadone(double normal dose) -not currently in alcohol withdrawal -holding methadone in light of prolonged qtc -will monitor for signs of withdrawal -ativan PRN if needed #Pulm history of COPD; active smoker -ABG showed PH 7.4 with Pco2 55 -currently saturating well on nasal cannula -if change in mental status will repeat ABG assess need for intubation F/E/N not on fluids monitor electrolytes regular diet dvt ppx:lovenox sq Dispo: downgrade from ICU Visit type - Emergency Visit Emergency Visit: No - New Patient This patient is new to me today: No - Critical Care Critical Care patient: No Total Critical Care Time (in minutes): 36 Critical Care Statement: The care of this patient involved high complexity decision making to prevent further life threatening deterioration of the patient 's condition and/or to evaluate & treat vital organ system(s) failure or risk of failure. ATTENDING PHYSICIAN STATEMENT I saw and evaluated the patient. I reviewed the resident's note and discussed the case with the resident. I agree with the resident's findings and plan as documented. SUBJECTIVE: OBJECTIVE: ASSESSMENT AND PLAN:
[2019-06-13] MEDS ORDERED: ACETAMINOPHEN 325 MG TABLET (FP) PO PRN (18:13)
--- NOTE | 2019-06-13 19:04 | PN ---
Teaching Attending Note Name of Resident: Angeles Dalton ATTENDING PHYSICIAN STATEMENT I saw and evaluated the patient. I reviewed the resident's note and discussed the case with the resident. I agree with the resident's findings and plan as documented. SUBJECTIVE: Patient is feeling better, no chest pain or palpitations OBJECTIVE: Vital Signs Temperature 98.8 F 06/13/19 18:00 Pulse Rate 59 L 06/13/19 18:00 Respiratory Rate 18 06/13/19 18:00 Blood Pressure 154/78 06/13/19 18:00 O2 Sat by Pulse Oximetry (%) 98 06/13/19 07:55 GENERAL: The patient is awake, alert, and fully oriented, in no acute distress. HEAD: Normal with no signs of trauma. EYES: PERRL, extraocular movements intact, sclera anicteric, conjunctiva clear. ENT: Ears normal, nares patent, oropharynx clear without exudates, moist mucous membranes. NECK: Trachea midline, full range of motion, supple. LUNGS: Breath sounds equal, clear to auscultation bilaterally, no wheezes, no crackles, no accessory muscle use. HEART: Regular rate and rhythm, S1, S2 without murmur, rub or gallop. ABDOMEN: Soft, nontender, nondistended, normoactive bowel sounds, no guarding, no rebound, no hepatosplenomegaly, no masses. EXTREMITIES: 2+ pulses, warm, well-perfused, no edema. NEUROLOGICAL: Cranial nerves II through XII grossly intact. Normal speech, gait not observed. PSYCH: Normal mood, normal affect. SKIN: Warm, dry, normal turgor, no rashes or lesions noted CBCD WBC 6.1 K/mm3 (4.0-10.0) 06/13/19 05:25 RBC 4.66 M/mm3 (3.60-5.2) 06/13/19 05:25 Hgb 13.7 GM/dL (10.7-15.3) 06/13/19 05:25 Hct 41.8 % (32.4-45.2) 06/13/19 05:25 MCV 89.6 fl (80-96) 06/13/19 05:25 MCHC 32.9 g/dl (32.0-36.0) 06/13/19 05:25 RDW 17.5 % (11.6-15.6) H 06/13/19 05:25 Plt Count 293 K/MM3 (134-434) 06/13/19 05:25 MPV 8.4 fl (7.5-11.1) 06/13/19 05:25 CMP Sodium 141 mmol/L (136-145) 06/13/19 05:25 Potassium 3.8 mmol/L (3.5-5.1) 06/13/19 05:25 Chloride 101 mmol/L (98-107) 06/13/19 05:25 Carbon Dioxide 38 mmol/L (21-32) H 06/13/19 05:25 Anion Gap 2 MMOL/L (8-16) L 06/13/19 05:25 BUN 17.4 mg/dL (7-18) 06/13/19 05:25 Creatinine 1.1 mg/dL (0.55-1.3) 06/13/19 05:25 Random Glucose 94 mg/dL (74-106) 06/13/19 05:25 Calcium 7.9 mg/dL (8.5-10.1) L 06/13/19 05:25 Total Bilirubin 1.1 mg/dL (0.2-1) H 06/12/19 05:18 AST 36 U/L (15-37) 06/12/19 05:18 ALT 48 U/L (13-61) 06/12/19 05:18 Alkaline Phosphatase 107 U/L (45-117) 06/12/19 05:18 Total Protein 5.7 g/dl (6.4-8.2) L 06/12/19 05:18 Albumin 2.9 g/dl (3.4-5.0) L 06/12/19 05:18 CARDIAC ENZYMES Creatine Kinase 85 U/L (26-192) 06/11/19 22:30 Troponin I 0.07 ng/ml (0.00-0.05) H 06/12/19 05:18 Current Medications Generic Name Dose Route Start Last Admin Trade Name Freq PRN Reason Stop Dose Admin Acetaminophen 650 mg 06/13/19 18:13 Tylenol - PO Q6H PRN Fever Or Pain 5-10 Amlodipine Besylate 10 mg 06/14/19 10:00 Norvasc - PO DAILY [facility] Carvedilol 6.25 mg 06/13/19 22:00 Coreg - PO BID [facility] Chlorhexidine Gluconate 1 applic 06/13/19 22:00 Hibiclens For Decolonization - TP HS [facility] Enoxaparin Sodium 40 mg 06/14/19 10:00 Lovenox - SQ DAILY [facility] Insulin Aspart 1 vial 06/13/19 16:30 06/13/19 17:18 Novolog Vial Sliding Scale - SQ Not Given ACHS [facility] Protocol Lisinopril 20 mg 06/14/19 10:00 Prinivil PO DAILY [facility] Mupirocin 1 applic 06/13/19 22:00 Bactroban Ointment (For Decolonization) - NS 06/16/19 21:59 BID [facility] Home Medications Medication Instructions Recorded Fluticasone/Salmeterol [Advair 1 each IH DAILY #1 blst.w.dev 08/23/18 250-50 Diskus] Atorvastatin Calcium 40 mg PO HS 06/10/19 Carvedilol [Coreg -] 6.25 mg PO BID 06/10/19 Fluticasone/Salmeterol [Advair Hfa 1 inh PO BID 06/10/19 230-21 Mcg Inhaler] Lisinopril 10 mg PO DAILY 06/10/19 Metformin HCl [Glucophage] 500 mg PO DAILY 06/10/19 Metoprolol Succinate [Toprol Xl -] 50 mg PO DAILY 06/10/19 Montelukast Na [Singulair -] 10 mg PO HS 06/10/19 Tiotropium [place] [Spiriva] 18 mcg IH DAILY 06/10/19 predniSONE [Deltasone -] 40 mg PO DAILY 06/10/19 Laboratory Tests 06/11/19 06/11/19 06/11/19 15:30 22:30 22:30 Troponin I 0.08 H 0.08 H Methadone Screen Positive A* Cocaine Screen Positive A* 06/12/19 05:18 Troponin I 0.07 H Methadone Screen Cocaine Screen CXR shows cardiomegaly with pulmonary vascular congestion and fluid in the fissures. EKG : nSR rate of 50, with QTc of 439 with LAE and inferolateral T wave inversion. US of abdomen: normal Head CT: No evidence of acute intracranial hemorrhage. No evidence of hydrocephalus. No CT evidence of acute territorial ischemic changes. Hypodense changes are noted in the supratentorial deep hemispheric, subcortical white matter. MRI is more sensitive in detecting of acute or subacute infarct, demyelinating disease. Partially CSF sella turcica. Low lying cerebellar tonsils with effacement of the basal cisterns at foramen magnum concerning for tonsillar ectopia. ASSESSMENT AND PLAN: Patient is a 58 yof homeless with a PMHx of COPD, Tobacco use, NIDDM, HLD, HTN (noncompliant) and Polysubstance abuse (heroin, alcohol), presented with Alcohol withdrawal with delirium tremens, Seizures and hallucinations, Opiod overdose and withdrawal taking methadone and heroin that used it in this morning who presents from [facility] confused and altered. # Acute Drug overdose and alcohol intoxication : presented with acute change of mental status: improved # Acute Hypercapnic and hypoxic respiratory failure: improving # Hypertensive emergency: NTG drip, echo continue # Acute D.HF with 3/6 Holosystolic murmur present, Echo in the AM # Low lying cerebellar tonsil: discussed with dr Mistry , possible normal varient, nothing to do # T2DM with SS with coverage # Alcohol/Polysubstance abuse: on librium protocol # Tobacco Use :smoking cessation and Nicotine patch. # Prolonged QTc presneted with Qtc 605 now 433 s/p Mag 2 grams IV given # Acute Transaminits trend DVT prophylaxis - Lovenox 40 mg
--- NOTE | 2019-06-13 19:08 | CONSULT ---
Consult Detox [facility] Reason for Current Admission/Consult: overdose Referred by:: Dawood Garcia - History History of Present Illness: The patient is a 58 year old female with a significant PMH of COPD, CHF, DM, HLD , HTN, alcohol/ opioid/ heroin/ crack/cocaine dependence who presents to the emergency department BIB from [facility] for SOB and hypoxia. Per [facility], the patient was admitted at [facility] for COPD exacerbation. Pt was d/c back to [facility] for detox (heroin and cocaine) yesterday 06/10/19. While at [facility] patient became lethargic due to overdose and was treated with narcan.pt became very short of breath afterwords and hypoxic. sent to ED for evaluation. - History Source History Provided By: Medical Record Limitations to Obtaining History: No Limitations - Alcohol/Substance Use Hx Alcohol Use: No Hx Substance Use: Yes (heroin) - Current Drug/Alcohol Use Heroin Amount used: 3-4 bags Age of first use: 33 Date of Last Use: 06/09/19 Cocaine Route: Inhalation Frequency: 1-2 times per week Amount used: 3 bags Age of first use: 33 Date of Last Use: 06/09/19 Alcohol Amount used: 1 pint vodka Age of first use: 14 Date of Last Use: 06/09/19 - Past Medical History Cardio/Vascular: Yes: CHF, HTN, Hyperlipdemia Endocrine: Yes: Diabetes Mellitus - Past Surgical History Past Surgical History: Yes: None - Significant Medical Findings: As per resident: GENERAL: NAD EYES: no scleral icterus NECK: no JVD; no lymphadenopathy LUNGS: mildly diminished breath sounds at the bases; no rales/rhonchi or wheezing. HEART: RRR s1 s2; 3/6 holosystolic murmur. ABDOMEN: soft; NT/ND +BS in all 4 quadrants MUSCULOSKELETAL: Normal range of motion at all joints. No bony deformities or tenderness. No CVA tenderness. EXTREMITIES: warm; well-perfused no clubbing/cyanosis or edema NEUROLOGICAL: alert, conversational PSYCHIATRIC: Cooperative. SKIN: Warm, dry, normal turgor, no rashes or lesions noted. Assessment Plan - Plan Plan: 1. opioid dependence, alcohol dependence and cocaine use disorder: Agree with current treatment of patient. Patient does not seem to be in withdrawals. Comfort meds including Ativan seems to be sufficient at this time. Once her acute CHF is resolve and she is medically stable, she can be transferred to a regular medical floor. However, due to the complexity of her medical issues, [facility] would not be the appropriate site to treat her acute withdrawals. Once she no longer has any withdrawals and is medically stable, then she should be considered for a in-hospital rehab setting. That setting would not be available at [facility]. Dr. Lynch - Medication Detox Regimen/Protocol: Ativan
[2019-06-13] MEDS ORDERED: CHLORHEXIDINE GLUCONATE 4% CLEANSER FOR DECOLONIZATION TP SCH (22:00)
[2019-06-13 23:06] LABS: HEP B CORE AB, TOT Negative (Negative)
[2019-06-14] MEDS: INSULIN SLIDING SCALE (NOVOLOG) 1 VIAL SQ SCH ×3 (06:33→17:07)
[2019-06-14 08:47] LABS: HEMATOCRIT 44.9 % (32.4-45.2); HEMOGLOBIN 14.6 GM/dL (10.7-15.3); MCH 29.2 pg (25.7-33.7); MCHC 32.6 g/dl (32.0-36.0); MEAN CELL VOLUME 89.5 fl (80-96); MEAN PLT VOLUME 8.2 fl (7.5-11.1); PLATELET COUNT 320 K/MM3 (134-434); RBC 5.02 M/mm3 (3.60-5.2); RDW 17.7 % (11.6-15.6)
[2019-06-14] MEDS: MUPIROCIN 2% TOPICAL OINTMENT FOR DECOLONIZATION NS SCH ×2 (08:56→09:21)
[2019-06-14] MEDS: CARVEDILOL 6.25 MG TABLET (FP) PO SCH (09:18)
[2019-06-14 09:29] LABS: ALBUMIN 2.9 g/dl (3.4-5.0); BILIRUBIN,TOTAL 0.8 mg/dL (0.2-1); BLOOD UREA NITROGEN 11.5 mg/dL (7-18); CALCIUM 8.3 mg/dL (8.5-10.1); CREATININE 0.9 mg/dL (0.55-1.3); MAGNESIUM 2.1 mg/dL (1.8-2.4); PHOSPHOROUS 3.8 mg/dL (2.5-4.9); POTASSIUM 4.3 mmol/L (3.5-5.1); TOT PROT 5.8 g/dl (6.4-8.2)
[2019-06-14] MEDS ORDERED: ENOXAPARIN NA (PORCINE) 40 MG/0.4 ML DISP.SYRIN SQ SCH (10:00)
[2019-06-14] MEDS ORDERED: amLODIPine BESYLATE 10 MG TABLET (FP) PO SCH ×2 (10:00)
[2019-06-14] MEDS ORDERED: LISINOPRIL 10 MG TABLET (FP) PO SCH (10:00)
--- NOTE | 2019-06-14 10:37 | PN ---
Progress Note (short form) - Note Progress Note: Patient is feeling better with no acute distress. Vital Signs Temperature 98.7 F 06/14/19 05:00 Pulse Rate 68 06/14/19 09:00 Respiratory Rate 18 06/14/19 09:00 Blood Pressure 140/60 06/14/19 09:00 O2 Sat by Pulse Oximetry (%) 94 L 06/14/19 09:00 GENERAL: The patient is awake, alert, and fully oriented, in no acute distress. HEAD: Normal with no signs of trauma. EYES: PERRL, extraocular movements intact, sclera anicteric, conjunctiva clear. ENT: Ears normal, nares patent, oropharynx clear without exudates, moist mucous membranes. NECK: Trachea midline, full range of motion, supple. LUNGS: Breath sounds equal, clear to auscultation bilaterally, no wheezes, no crackles, no accessory muscle use. HEART: Regular rate and rhythm, S1, S2 without murmur, rub or gallop. ABDOMEN: Soft, nontender, nondistended, normoactive bowel sounds, no guarding, no rebound, no hepatosplenomegaly, no masses. EXTREMITIES: 2+ pulses, warm, well-perfused, no edema. NEUROLOGICAL: Cranial nerves II through XII grossly intact. Normal speech, gait not observed. PSYCH: Normal mood, normal affect. SKIN: Warm, dry, normal turgor, no rashes or lesions noted CBCD WBC 5.0 K/mm3 (4.0-10.0) 06/14/19 07:40 RBC 5.02 M/mm3 (3.60-5.2) 06/14/19 07:40 Hgb 14.6 GM/dL (10.7-15.3) 06/14/19 07:40 Hct 44.9 % (32.4-45.2) 06/14/19 07:40 MCV 89.5 fl (80-96) 06/14/19 07:40 MCHC 32.6 g/dl (32.0-36.0) 06/14/19 07:40 RDW 17.7 % (11.6-15.6) H 06/14/19 07:40 Plt Count 320 K/MM3 (134-434) 06/14/19 07:40 MPV 8.2 fl (7.5-11.1) 06/14/19 07:40 CMP Sodium 141 mmol/L (136-145) 06/14/19 07:40 Potassium 4.3 mmol/L (3.5-5.1) 06/14/19 07:40 Chloride 101 mmol/L (98-107) 06/14/19 07:40 Carbon Dioxide 36 mmol/L (21-32) H 06/14/19 07:40 Anion Gap 4 MMOL/L (8-16) L 06/14/19 07:40 BUN 11.5 mg/dL (7-18) 06/14/19 07:40 Creatinine 0.9 mg/dL (0.55-1.3) 06/14/19 07:40 Random Glucose 79 mg/dL (74-106) 06/14/19 07:40 Calcium 8.3 mg/dL (8.5-10.1) L 06/14/19 07:40 Total Bilirubin 0.8 mg/dL (0.2-1) 06/14/19 07:40 AST 18 U/L (15-37) 06/14/19 07:40 ALT 28 U/L (13-61) 06/14/19 07:40 Alkaline Phosphatase 89 U/L (45-117) 06/14/19 07:40 Total Protein 5.8 g/dl (6.4-8.2) L 06/14/19 07:40 Albumin 2.9 g/dl (3.4-5.0) L 06/14/19 07:40 CARDIAC ENZYMES Creatine Kinase 85 U/L (26-192) 06/11/19 22:30 Troponin I 0.07 ng/ml (0.00-0.05) H 06/12/19 05:18 Current Medications Generic Name Dose Route Start Last Admin Trade Name Freq PRN Reason Stop Dose Admin Acetaminophen 650 mg 06/13/19 18:13 06/14/19 09:10 Tylenol - PO 650 mg Q6H PRN Administration Fever Or Pain 5-10 Amlodipine Besylate 10 mg 06/14/19 10:00 06/14/19 09:18 Norvasc - PO 10 mg DAILY [facility] Administration Carvedilol 6.25 mg 06/13/19 22:00 06/14/19 09:18 Coreg - PO 6.25 mg BID [facility] Administration Chlorhexidine Gluconate 1 applic 06/13/19 22:00 06/14/19 08:57 Hibiclens For Decolonization - TP Not Given [facility] Enoxaparin Sodium 40 mg 06/14/19 10:00 06/14/19 09:18 Lovenox - SQ 40 mg DAILY [facility] Administration Insulin Aspart 1 vial 06/13/19 16:30 06/14/19 06:33 Novolog Vial Sliding Scale - SQ Not Given ACHS [facility] Protocol Lisinopril 20 mg 06/14/19 10:00 06/14/19 09:15 Prinivil PO 20 mg DAILY [facility] Administration Mupirocin 1 applic 06/13/19 22:00 06/14/19 09:21 Bactroban Ointment (For Decolonization) - NS 06/16/19 21:59 Not Given BID [facility] Home Medications Medication Instructions Recorded Fluticasone/Salmeterol [Advair 1 each IH DAILY #1 blst.w.dev 08/23/18 250-50 Diskus] Atorvastatin Calcium 40 mg PO HS 06/10/19 Carvedilol [Coreg -] 6.25 mg PO BID 06/10/19 Fluticasone/Salmeterol [Advair Hfa 1 inh PO BID 06/10/19 230-21 Mcg Inhaler] Lisinopril 10 mg PO DAILY 06/10/19 Metformin HCl [Glucophage] 500 mg PO DAILY 06/10/19 Metoprolol Succinate [Toprol Xl -] 50 mg PO DAILY 06/10/19 Montelukast Na [Singulair -] 10 mg PO HS 06/10/19 Tiotropium [place] [Spiriva] 18 mcg IH DAILY 06/10/19 predniSONE [Deltasone -] 40 mg PO DAILY 06/10/19 Laboratory Tests 06/11/19 06/11/19 06/11/19 15:30 22:30 22:30 Troponin I 0.08 H 0.08 H Methadone Screen Positive A* Cocaine Screen Positive A* 06/12/19 05:18 Troponin I 0.07 H Methadone Screen Cocaine Screen CXR shows cardiomegaly with pulmonary vascular congestion and fluid in the fissures. EKG : nSR rate of 50, with QTc of 439 with LAE and inferolateral T wave inversion. US of abdomen: normal Head CT: No evidence of acute intracranial hemorrhage. No evidence of hydrocephalus. No CT evidence of acute territorial ischemic changes. Hypodense changes are noted in the supratentorial deep hemispheric, subcortical white matter. MRI is more sensitive in detecting of acute or subacute infarct, demyelinating disease. Partially CSF sella turcica. Low lying cerebellar tonsils with effacement of the basal cisterns at foramen magnum concerning for tonsillar ectopia. ASSESSMENT AND PLAN: Patient is a 58 yof homeless with a PMHx of COPD, Tobacco use, NIDDM, HLD, HTN (noncompliant) and Polysubstance abuse (heroin, alcohol), presented with Alcohol withdrawal with delirium tremens, Seizures and hallucinations, Opiod overdose and withdrawal taking methadone and heroin that used it in this morning who presents from [facility] confused and altered. # Acute Drug overdose and alcohol intoxication : presented with acute change of mental status: improved # Acute Hypercapnic and hypoxic respiratory failure: improving # Hypertensive emergency: s/p NTG drip, echo as above, dc patient coreg/ lisinopril/norvasc # Acute D.HF with 3/6 Holosystolic murmur present, Echo in the AM # Low lying cerebellar tonsil: discussed with dr Mistry , possible normal varient, nothing to do # T2DM with SS with coverage # Alcohol/Polysubstance abuse: on librium protocol completed # Tobacco Use :smoking cessation and Nicotine patch. # Prolonged QTc presneted with Qtc 605 now 433 s/p Mag 2 grams IV given # Acute Transaminits trend DVT prophylaxis - Lovenox 40 mg Visit type - Emergency Visit Emergency Visit: Yes ED Registration Date: 06/11/19 Care time: The patient presented to the Emergency Department on the above date and was hospitalized for further evaluation of their emergent condition. - New Patient This patient is new to me today: No - Critical Care Critical Care patient: No - Discharge Referral Referred to [facility] No
--- NOTE | 2019-06-14 14:13 | PN ---
Progress Note, Physician History of Present Illness: Sensorium recovered, no complaints. BP control improved. - Current Medication List Current Medications: Active Medications Acetaminophen (Tylenol -) 650 mg PO Q6H PRN PRN Reason: Fever Or Pain 5-10 Last Admin: 06/14/19 09:10 Dose: 650 mg Amlodipine Besylate (Norvasc -) 10 mg PO DAILY [facility] Last Admin: 06/14/19 09:18 Dose: 10 mg Carvedilol (Coreg -) 6.25 mg PO BID [facility] Last Admin: 06/14/19 09:18 Dose: 6.25 mg Chlorhexidine Gluconate (Hibiclens For Decolonization -) 1 applic TP HS [facility] Last Admin: 06/14/19 08:57 Dose: Not Given Enoxaparin Sodium (Lovenox -) 40 mg SQ DAILY [facility] Last Admin: 06/14/19 09:18 Dose: 40 mg Insulin Aspart (Novolog Vial Sliding Scale -) 1 vial SQ [facility]; Protocol Last Admin: 06/14/19 11:43 Dose: Not Given Lisinopril (Prinivil) 20 mg PO DAILY [facility] Last Admin: 06/14/19 09:15 Dose: 20 mg Mupirocin (Bactroban Ointment (For Decolonization) -) 1 applic NS BID [facility] Stop: 06/16/19 21:59 Last Admin: 06/14/19 09:21 Dose: Not Given - Objective Vital Signs: Vital Signs Temperature 98.7 F 06/14/19 05:00 Pulse Rate 68 06/14/19 09:00 Respiratory Rate 18 06/14/19 09:00 Blood Pressure 140/60 06/14/19 09:00 O2 Sat by Pulse Oximetry (%) 94 L 06/14/19 09:00 Constitutional: Yes: No Distress, Calm Neck: Yes: Supple Cardiovascular: Yes: Regular Rate and Rhythm Respiratory: Yes: Regular, CTA Bilaterally Gastrointestinal: Yes: Normal Bowel Sounds, Soft Edema: No Labs: CBC, BMP 06/14/19 07:40 06/14/19 07:40 INR, PTT INR 1.18 (0.83-1.09) H 06/11/19 15:02 Problem List - Problems (1) Hypertensive urgency Code(s): I16.0 - HYPERTENSIVE URGENCY (2) Demand ischemia Code(s): I24.8 - OTHER FORMS OF ACUTE ISCHEMIC HEART DISEASE (3) Alcohol dependence with withdrawal Code(s): F10.239 - ALCOHOL DEPENDENCE WITH WITHDRAWAL, UNSPECIFIED Qualifiers: Complication of substance-induced condition: with delirium Qualified Code(s ): F10.231 - Alcohol dependence with withdrawal delirium (4) COPD (chronic obstructive pulmonary disease) Code(s): J44.9 - CHRONIC OBSTRUCTIVE PULMONARY DISEASE, UNSPECIFIED Qualifiers: COPD type: unspecified COPD Qualified Code(s): J44.9 - Chronic obstructive pulmonary disease, unspecified (5) Diabetes Code(s): E11.9 - TYPE 2 DIABETES MELLITUS WITHOUT COMPLICATIONS Qualifiers: Diabetes mellitus type: type 2 (6) Hyperlipidemia Code(s): E78.5 - HYPERLIPIDEMIA, UNSPECIFIED Qualifiers: Hyperlipidemia type: pure hypercholesterolemia Qualified Code(s): E78.00 - Pure hypercholesterolemia, unspecified; E78.0 - Pure hypercholesterolemia (7) Opioid use disorder Code(s): F11.99 - OPIOID USE, UNSP WITH UNSPECIFIED OPIOID-INDUCED DISORDER (8) Diastolic dysfunction Code(s): I51.89 - OTHER ILL-DEFINED HEART DISEASES Assessment/Plan 06/12/2019 Echo: Mod cLVH, hyperdynamic LVEF>70%, normal RV size and fxn, tr TR , mild-mod CXR shows cardiomegaly with pulmonary vascular congestion and fluid in the fissures. US of abdomen: normal 1. Acute hypercapneic and hypoxic respiratory failure 2. Acute drug overdose 3. Hypertensive urgency with encephelopathy 4. Diastolic dysfunction 5. Type 2 DM 6. Polysubstance abuse (heroin, cocaine,and alcohol) 7. Hyperlipidemia 8. COPD, tobacco abuse P:1. Continue carvedilol 6.25 bid, lisinoprol 20 qd, Norvasc 10 qd 2. Completed Librium detox, DVT prophylaxis 3. D/c planning
--- NOTE | 2019-06-14 14:28 | DS ---
Physical Exam: SUBJECTIVE: Patient seen and examined Patient is comfortable with no acute distress. OBJECTIVE: Vital Signs Temperature 98.7 F 06/14/19 05:00 Pulse Rate 68 06/14/19 09:00 Respiratory Rate 18 06/14/19 09:00 Blood Pressure 140/60 06/14/19 09:00 O2 Sat by Pulse Oximetry (%) 94 L 06/14/19 09:00 GENERAL: The patient is awake, alert, and fully oriented, in no acute distress. HEAD: Normal with no signs of trauma. EYES: PERRL, extraocular movements intact, sclera anicteric, conjunctiva clear. ENT: Ears normal, oropharynx clear without exudates, moist mucous membranes. NECK: Trachea midline, full range of motion, supple. LUNGS: Breath sounds equal, clear to auscultation bilaterally, no wheezes, no crackles, no accessory muscle use. HEART: Regular rate and rhythm, S1, S2 without murmur, rub or gallop. ABDOMEN: Soft, Nt,ND, normoactive bowel sounds, no guarding, no rebound, no hepatosplenomegaly, no masses. EXTREMITIES: 2+ pulses, warm, well-perfused, no edema. NEUROLOGICAL: Cranial nerves II through XII grossly intact. Normal speech, gait not observed. PSYCH: Normal mood, normal affect. SKIN: Warm, dry, normal turgor, no rashes or lesions noted CBCD WBC 5.0 K/mm3 (4.0-10.0) 06/14/19 07:40 RBC 5.02 M/mm3 (3.60-5.2) 06/14/19 07:40 Hgb 14.6 GM/dL (10.7-15.3) 06/14/19 07:40 Hct 44.9 % (32.4-45.2) 06/14/19 07:40 MCV 89.5 fl (80-96) 06/14/19 07:40 MCHC 32.6 g/dl (32.0-36.0) 06/14/19 07:40 RDW 17.7 % (11.6-15.6) H 06/14/19 07:40 Plt Count 320 K/MM3 (134-434) 06/14/19 07:40 MPV 8.2 fl (7.5-11.1) 06/14/19 07:40 CMP Sodium 141 mmol/L (136-145) 06/14/19 07:40 Potassium 4.3 mmol/L (3.5-5.1) 06/14/19 07:40 Chloride 101 mmol/L (98-107) 06/14/19 07:40 Carbon Dioxide 36 mmol/L (21-32) H 06/14/19 07:40 Anion Gap 4 MMOL/L (8-16) L 06/14/19 07:40 BUN 11.5 mg/dL (7-18) 06/14/19 07:40 Creatinine 0.9 mg/dL (0.55-1.3) 06/14/19 07:40 Random Glucose 79 mg/dL (74-106) 06/14/19 07:40 Calcium 8.3 mg/dL (8.5-10.1) L 06/14/19 07:40 Total Bilirubin 0.8 mg/dL (0.2-1) 06/14/19 07:40 AST 18 U/L (15-37) 06/14/19 07:40 ALT 28 U/L (13-61) 06/14/19 07:40 Alkaline Phosphatase 89 U/L (45-117) 06/14/19 07:40 Total Protein 5.8 g/dl (6.4-8.2) L 06/14/19 07:40 Albumin 2.9 g/dl (3.4-5.0) L 06/14/19 07:40 CARDIAC ENZYMES Creatine Kinase 85 U/L (26-192) 06/11/19 22:30 Troponin I 0.07 ng/ml (0.00-0.05) H 06/12/19 05:18 Current Medications Generic Name Dose Route Start Last Admin Trade Name Freq PRN Reason Stop Dose Admin Acetaminophen 650 mg 06/13/19 18:13 06/14/19 09:10 Tylenol - PO 650 mg Q6H PRN Administration Fever Or Pain 5-10 Amlodipine Besylate 10 mg 06/14/19 10:00 06/14/19 09:18 Norvasc - PO 10 mg DAILY CEZAR Administration Carvedilol 6.25 mg 06/13/19 22:00 06/14/19 09:18 Coreg - PO 6.25 mg BID CEZAR Administration Chlorhexidine Gluconate 1 applic 06/13/19 22:00 06/14/19 08:57 Hibiclens For Decolonization - TP Not Given HS [facility] Enoxaparin Sodium 40 mg 06/14/19 10:00 06/14/19 09:18 Lovenox - SQ 40 mg DAILY [facility] Administration Insulin Aspart 1 vial 06/13/19 16:30 06/14/19 06:33 Novolog Vial Sliding Scale - SQ Not Given ACHS [facility] Protocol Lisinopril 20 mg 06/14/19 10:00 06/14/19 09:15 Prinivil PO 20 mg DAILY [facility] Administration Mupirocin 1 applic 06/13/19 22:00 06/14/19 09:21 Bactroban Ointment (For Decolonization) - NS 06/16/19 21:59 Not Given BID [facility] Home Medications Medication Instructions Recorded Fluticasone/Salmeterol [Advair 1 each IH DAILY #1 blst.w.dev 08/23/18 250-50 Diskus] Atorvastatin Calcium 40 mg PO HS 06/10/19 Carvedilol [Coreg -] 6.25 mg PO BID 06/10/19 Fluticasone/Salmeterol [Advair Hfa 1 inh PO BID 06/10/19 230-21 Mcg Inhaler] Lisinopril 10 mg PO DAILY 06/10/19 Metformin HCl [Glucophage] 500 mg PO DAILY 06/10/19 Metoprolol Succinate [Toprol Xl -] 50 mg PO DAILY 06/10/19 Montelukast Na [Singulair -] 10 mg PO HS 06/10/19 Tiotropium [place] [Spiriva] 18 mcg IH DAILY 06/10/19 predniSONE [Deltasone -] 40 mg PO DAILY 06/10/19 Laboratory Tests 06/11/19 06/11/19 06/11/19 15:30 22:30 22:30 Troponin I 0.08 H 0.08 H Methadone Screen Positive A* Cocaine Screen Positive A* 06/12/19 05:18 Troponin I 0.07 H Methadone Screen Cocaine Screen CXR shows cardiomegaly with pulmonary vascular congestion and fluid in the fissures. EKG : nSR rate of 50, with QTc of 439 with LAE and inferolateral T wave inversion. US of abdomen: normal Head CT: No evidence of acute intracranial hemorrhage. No evidence of hydrocephalus. No CT evidence of acute territorial ischemic changes. Hypodense changes are noted in the supratentorial deep hemispheric, subcortical white matter. MRI is more sensitive in detecting of acute or subacute infarct, demyelinating disease. Partially CSF sella turcica. Low lying cerebellar tonsils with effacement of the basal cisterns at foramen magnum concerning for tonsillar ectopia. HOSPITAL COURSE: Date of Admission:06/11/19 Date of Discharge: 06/14/19 Patient is a 58 yof homeless with a PMHx of COPD, Tobacco use, NIDDM, HLD, HTN (noncompliant) and Polysubstance abuse (heroin, alcohol), presented with Alcohol withdrawal with delirium tremens, Seizures and hallucinations, Opiod overdose and withdrawal taking methadone and heroin that used it in this morning who presents from [facility] confused and altered. # Acute Drug overdose and alcohol intoxication : presented with acute change of mental status: improved # Acute Hypercapnic and hypoxic respiratory failure: improving # Hypertensive emergency: s/p NTG drip, echo as above, dc patient home on coreg/ lisinopril/norvasc # Acute D.HF with 3/6 Holosystolic murmur present: stable at this time # Low lying cerebellar tonsil: discussed with dr Mistry , possible normal varient, nothing to do # T2DM with SS with coverage , continue home mes # Alcohol/Polysubstance abuse: on librium protocol completed # Tobacco Use :smoking cessation and Nicotine patch. # Prolonged QTc presneted with Qtc 605 now 433 s/p Mag 2 grams IV given # Acute Transaminits : improved DVT prophylaxis - Lovenox 40 mg Minutes to complete discharge: 35 Discharge Summary Problems reviewed: Yes Reason For Visit: OVERDOSE Current Active Problems Demand ischemia (Acute) Diastolic dysfunction (Acute) Hypertensive urgency (Acute) Condition: Improved - Instructions Diet, Activity, Other Instructions: You were admitted for alcohol intoxication and drug overdose. Abstinence from alcohol is required ABSTINENCE FROM ILLICIT DRUGS are required. please follow up with your primary care doctor or our resident's clinic to follow for further care. Please continue your detox rehab. as an outpatient/ inpatient for high blood pressure please continue to take coreg 6.25mg twice per day lisinopril 20mg per day Norvasc 10mg per day to control your high blood pressure. Please make an appointment with your doctor within a week. follow with the [facility] custodian as an outpatient for further care follow up with Dr.rampausad Osiel Ramirez as an outpatient. If you develop shortness of breath or chest pain , come back to the emergency room. Referrals: [facility] [Provider Group] - 1 Week Luis Storey MD [Staff Physician] - 1 Week ON STAFF,NOT [Primary Care Provider] - Franco Esquivel MD [Staff Physician] - 1 Week Disposition: HOME - Home Medications Comprehensive Discharge Medication List: Ambulatory Orders Fluticasone/Salmeterol [Advair 250-50 Diskus] 1 each IH DAILY #1 blst.w.dev 02/01 Atorvastatin Calcium 40 mg PO HS 06/10/19 Carvedilol [Coreg -] 6.25 mg PO BID 06/10/19 Fluticasone/Salmeterol [Advair Hfa 230-21 Mcg Inhaler] 1 inh PO BID 06/10/19 Lisinopril 10 mg PO DAILY 06/10/19 Metformin HCl [Glucophage] 500 mg PO DAILY 06/10/19 Metoprolol Succinate [Toprol Xl -] 50 mg PO DAILY 06/10/19 Montelukast Na [Singulair -] 10 mg PO HS 06/10/19 Tiotropium [place] [Spiriva] 18 mcg IH DAILY 06/10/19 predniSONE [Deltasone -] 40 mg PO DAILY 06/10/19 Amlodipine Besylate [Norvasc -] 10 mg PO DAILY 06/12/19 Ipratropium/Albuterol Sulfate [Iprat-Albut 0.5-3(2.5) mg/3 ml] 3 ml Q4H This patient is new to me today: No Emergency Visit: Yes ED Registration Date: 06/11/19 Care time: The patient presented to the Emergency Department on the above date and was hospitalized for further evaluation of their emergent condition. Critical Care patient: No - Discharge Referral Referred to [facility] Med P.C.: No
--- NOTE | 2019-06-14 14:30 | PN ---
Progress Note (short form) - Note Progress Note: 58 year old female history of CHF,DM,HLD,HTN,PSA( Heroin, alcohol, cocaine) patient came with drug overdose and high blood pressure. patient was on detox and did heroin and cocaine and was presented to hospital for ams, because of airway protection she was admitted to icu. Allisonne maci ct head it showed there is small white matter lesion and low hanging cerebellar tonsil, there was no hydrocephalus. Patient is alert and oriented , no headache no focal neurological symptoms. No new complain, patient is feeling better and being discharge home. NEUROLOGICAL EXAMINATION Alert oriented x 3, afebrile vss, neck is supple speech is normal eomi, pupils reactive no face asymmetry moving all ext sensation is normal sensation is normal CT head there is white matter leison and possible low laying cerebellar tonsil Assessment/Plan 58 year old female history of CHF,DM,HLD,HTN,PSA( Heroin, alcohol, cocaine) , pateint presented with drug overdose and abnormal ct findings,neuro exam is noraml. pateint is being discharged , no new focal neurological symptoms Plan: - no evidence of NPH and white matter lesion could be secondary to cocaine use - no need for brain mri at this time, can be follow up outpatinet - supportive care Thanking you so much Otto Mistry MD
[2019-06-14 15:35] VITALS: BP 148/75; PULSE 64; TEMP 98.4
== END 2019-06-14 17:00 | disposition home or self-care (01) | DRG 812 ==
LOC: JER 14:07 → JERBED 17:57 → JICU 06-12 00:25 → J5S 06-13 14:17
PROVIDERS: ADMIT Internal Medicine; ATTEND Internal Medicine
DX: T40.2X1A Poisoning by other opioids, accidental (unintentional), initial encounter (principal); J96.02 Acute respiratory failure with hypercapnia; J96.01 Acute respiratory failure with hypoxia; F14.20 Cocaine dependence, uncomplicated; F10.231 Alcohol dependence with withdrawal delirium; I24.8 Other forms of acute ischemic heart disease; I50.33 Acute on chronic diastolic (congestive) heart failure; G93.49 Other encephalopathy; I11.0 Hypertensive heart disease with heart failure; F10.220 Alcohol dependence with intoxication, uncomplicated; F11.20 Opioid dependence, uncomplicated; J44.9 Chronic obstructive pulmonary disease, unspecified; I16.1 Hypertensive emergency; Z79.84 Long term (current) use of oral hypoglycemic drugs; F17.210 Nicotine dependence, cigarettes, uncomplicated; Z59.0 Homelessness; Y92.89 Other specified places as the place of occurrence of the external cause; R74.0 Nonspecific elevation of levels of transaminase and lactic acid dehydrogenase [LDH]; R94.31 Abnormal electrocardiogram [ECG] [EKG]; E78.5 Hyperlipidemia, unspecified; E11.9 Type 2 diabetes mellitus without complications; E66.9 Obesity, unspecified; R50.9 Fever, unspecified; Z68.27 Body mass index [BMI] 27.0-27.9, adult
CPT/HCPCS: 36415; 36600; 70450-TC; 71045-TC-FY; 76705-TC; 80048; 80053; 80307; 81003; 82375; 82550; 82553; 82803; 82962; 83036; 83050; 83605; 83735; 84100; 84484; 85025; 85027; 85610; 85730; 86704; 86706; 86707; 86708; 86709; 87040; 87077; 87086; 87340; 87522; 87804; 87899; 93005; 93010; 93306-TC; 99285-25; J0131